=== PATIENT | female | born 1985 | race Caucasian/White ===

== ENCOUNTER 2024-04-16 08:12 | Outpatient (CLI) | payer BC, SELFPAY ==
--- NOTE | 2024-04-16 | ECG_ITS ---
Test Date: 2024-04-16 08:49:10 Measurements Intervals [place] Rate: 77 P: 43 VA: 143 QRS: 31 QRSD: 81 T: 11 QT: 365 QTc: 414 Interpretive Statements SINUS RHYTHM NORMAL ELECTROCARDIOGRAM No previous ECG available for comparison Electronically Signed On 04-16-2024 11:11:28 CDT by Henok Anglin M.D.
== END 2024-04-16 08:13 | disposition home or self-care (01) ==
LOC: ANHLAB 08:18 → ANHCARD 08:21
PROVIDERS: Visit Provider Obstetrics & Gynecology
DX: O16.9 Unspecified maternal hypertension, unspecified trimester (principal)
CPT/HCPCS: 93005

== ENCOUNTER 2024-06-30 15:15 | Outpatient (RCR) | payer BC, SELFPAY ==
[2024-05-27 15:27] VITALS: BP 127/81; PULSE 82
--- NOTE | ~2024-06-30 | US_ITS ---
EXAMINATION: US OB limited w BPP DATE: 06/30/2024 16:02 INDICATION: BPP and measure deepest pocket of amniotic fluid . TECHNIQUE: Real-time ultrasound of the pelvis was performed. COMPARISON: None. FINDINGS: There is a single living fetus in breech presentation, longitudinal lie, head to maternal right. The placenta is anterior, well distant from the cervix. heart rate is 154 bpm. Deepest vertical po cket 6.5 cm. Biophysical profile performed by the technologist: breathing (30 sec sustained breathing in 30 minutes): 2 out of 2. movement (3 gross body movements in 30 minutes: 2 out of 2. tone (one episode of degzqlo-lmldetsjy-skpoxvh limb movement): 2 out of 2. Amniotic fluid pocket (2 cm): 2 out of 2. Total score: 8 out of 8. IMPRESSION: Single living fetus in breech presentation. Biophysical profile 8 out of 8. Deepest vertical pocket 6.5 cm. Reviewed, dictated and finalized at location [facility]
== END 2024-08-25 12:16 | disposition home or self-care (01) ==
LOC: ANHOBOP 15:15
PROVIDERS: Visit Provider Obstetrics & Gynecology
DX: O36.8120 Decreased fetal movements, second trimester, not applicable or unspecified (principal); Z3A.27 27 weeks gestation of pregnancy
CPT/HCPCS: 59025; 76815; 76819

== ENCOUNTER 2024-07-15 15:58 | Outpatient (CLI) | payer BC, SELFPAY ==
[2024-07-15 16:37] VITALS: BP 135/93; PULSE 100; BMI 33.3
[2024-07-15 16:38] VITALS: BP 135/93; PULSE 100
[2024-07-15 16:46] VITALS: BP 130/93; PULSE 104
[2024-07-15 16:47] LABS: Add Urine Microscopic? NO; Appearance Urine Clear (Clear); Bilirubin Urine Negative (Negative); Blood Urine Negative (Negative); Color Urine Yellow (Yellow); Glucose Urine UA Negative (Negative); Ketones Urine Trace mg/dL (Negative); Leukocyte Esterase Ur Negative LEU/UL (Negative); Nitrate Urine Negative (Negative); Protein Urine Negative (Negative); Specific Grav Ur 1.013 (1.001-1.035); Urobilinogen Urine 0.2 mg/dL (<2.0)
[2024-07-15 16:48] LABS: Basophils Percent Auto 0.3 % (0.2-1.2); Eosinophils Absolute Auto 0.1 K/mm3 (0-0.3); Eosinophils Percent Auto 0.5 % (0-4.4); Hematocrit 37.4 % (37.0-47.0); Hemoglobin 12.8 g/dL (12.0-15.0); Immature Granulocyte Absolute 0.23 K/mm3 (0.00-0.031); Immature Granulocyte Percent A 1.9 % (0-0.5); Lymphocytes Absolute Auto 2.05 K/mm3 (0.9-3.2); Lymphocytes Percent Auto 17.3 % (18.3-44.2); Mean Corpuscular HGB Conc 34.2 g/dl (32-36); Mean Corpuscular Volume 90.6 fl (80-100); Mean Platelet Volume 11.3 fl (7.4-10.4); Monocytes Percent Auto 8.4 % (2.6-8.5); Neutrophils Absolute Auto 8.5 K/mm3 (1.3-6.7); Neutrophils Percent Auto 71.6 % (45.5-73.1); Platelet Count Result 137 k/mm3 (150-375); Red Blood Count 4.13 M/mm3 (4.2-5.4); Red Cell Distribution Width 13.4 % (11.5-14.5); White Blood Count 11.9 K/mm3 (4.5-10.0)
[2024-07-15 16:59] LABS: Alanine Aminotransferase 23 U/L (6-35); Albumin Level 3.6 g/dL (3.5-5.1); Alkaline Phosphatase 134 U/L (38-126); Anion Gap 5 mmol/L (4-12); Aspartate Amino Transferase 24 U/L (14-36); Bilirubin,Total 0.5 mg/dL (0.2-1.3); Blood Urea Nitrogen 14 mg/dL (7-17); Calcium 9.1 mg/dL (8.4-10.2); Carbon Dioxide 20 mmol/L (22-30); Chloride 108 mmol/L (98-107); Estimated Glomerular Filt Rate > 60; Glucose 83 mg/dL (65-110); Potassium 4.2 mmol/L (3.4-5.0); Sodium 133 mmol/L (137-145); Uric Acid 6.1 mg/dL (2.5-7.5)
[2024-07-15 17:01] VITALS: BP 133/87; PULSE 96
--- NOTE | 2024-07-15 17:13 | PC.NURSE ---
Dr. Parrish called stating she had been watching for pt's labs. The only lab still pending is the total protein creatinine ratio. Aware platelets are 137 and states around what pt has been running. Aware of pt's headache. Discussed BP's. OK for pt to go home and keep scheduled appointments in the office.
--- NOTE | 2024-07-15 18:42 | PC.NURSE ---
Called lab because total protein creatinine ratio still not available. Lab informed me they are working on the analyzer.
[2024-07-15 19:36] LABS: Total Protein Urine Random 6 mg/dL; Ur Ttl Prot Creatinine Ratio 0.11 mg/mg (0-0.20)
--- NOTE | 2024-07-15 19:44 | PC.NURSE ---
Total protein creatinine ratio is 0.107
== END 2024-07-15 17:15 | disposition home or self-care (01) ==
LOC: ANHOBOP 16:10 → ANHOBPP 16:11
PROVIDERS: Visit Provider Obstetrics & Gynecology
DX: O13.9 Gestational [pregnancy-induced] hypertension without significant proteinuria, unspecified trimester (principal); Z3A.00 Weeks of gestation of pregnancy not specified
CPT/HCPCS: 36415; 80053; 81003; 82570; 84156; 84550; 85025; 85055; 99199

== ENCOUNTER 2024-07-23 15:25 | Outpatient (CLI) | payer BC, SELFPAY ==
[2024-07-23] VITALS (7 sets, daily range): BP systolic 127–162; BP diastolic 85–94; PULSE 110–129
[2024-07-23 16:16] LABS: Basophils Percent Auto 0.4 % (0.2-1.2); Eosinophils Percent Auto 0.2 % (0-4.4); Immature Granulocyte Absolute 0.17 K/mm3 (0.00-0.031); Immature Granulocyte Percent A 1.5 % (0-0.5); Immature Platelet Fraction Pct 8.2 % (0.9-11.2); Lymphocytes Absolute Auto 1.62 K/mm3 (0.9-3.2); Lymphocytes Percent Auto 14.2 % (18.3-44.2); Mean Corpuscular HGB Conc 34.2 g/dl (32-36); Mean Corpuscular Volume 90.5 fl (80-100); Mean Platelet Volume 11.7 fl (7.4-10.4); Monocytes Absolute Auto 0.8 K/mm3 (0.1-0.6); Monocytes Percent Auto 7.2 % (2.6-8.5); Neutrophils Absolute Auto 8.7 K/mm3 (1.3-6.7); Neutrophils Percent Auto 76.5 % (45.5-73.1); Platelet Count Result 132 k/mm3 (150-375); Red Cell Distribution Width 13.2 % (11.5-14.5); White Blood Count 11.4 K/mm3 (4.5-10.0)
[2024-07-23 16:26] LABS: Total Protein Urine Random 9 mg/dL; Ur Ttl Prot Creatinine Ratio 0.43 mg/mg (0-0.20)
[2024-07-23 16:35] LABS: Add Urine Microscopic? YES; Appearance Urine Cloudy (Clear); Bacteria Urine Rare /hpf; Bilirubin Urine Negative (Negative); Blood Urine Negative (Negative); Color Urine Yellow (Yellow); Glucose Urine UA Negative (Negative); Ketones Urine Trace mg/dL (Negative); Leukocyte Esterase Ur Negative LEU/UL (Negative); Need Manual Microscopic Reviewed; Nitrate Urine Negative (Negative); Non Pathogenic Casts 0-2; Protein Urine Negative (Negative); RBC Urine 0-2 /hpf (0-2); Specific Grav Ur 1.006 (1.001-1.035); Squamous Epithelial Cell Urine Few /hpf (Few); Urobilinogen Urine 0.2 mg/dL (<2.0); WBC Urine 0-5 /hpf (0-3); pH Urine 5.5 (5.0-9.0)
[2024-07-23 16:36] LABS: Alanine Aminotransferase 19 U/L (6-35); Albumin Level 3.8 g/dL (3.5-5.1); Alkaline Phosphatase 166 U/L (38-126); Anion Gap 10 mmol/L (4-12); Aspartate Amino Transferase 22 U/L (14-36); Bilirubin,Total 0.6 mg/dL (0.2-1.3); Blood Urea Nitrogen 13 mg/dL (7-17); Carbon Dioxide 18 mmol/L (22-30); Chloride 108 mmol/L (98-107); Estimated Glomerular Filt Rate > 60; Glucose 85 mg/dL (65-110); Sodium 136 mmol/L (137-145); Uric Acid 6.3 mg/dL (2.5-7.5)
--- NOTE | 2024-07-23 17:26 | PC.NURSE ---
Dr. Parrish informed of BP's, reactive NST, and lab results. Pt states headache has decreased from a 7 down to a 4. states she can go home, but to let pt know that she will schedule her to be induced at 37 wks now due to the protein in her urine.
== END 2024-07-23 17:30 | disposition home or self-care (01) ==
LOC: ANHOBOP 15:35 → ANHOBPP 15:37
PROVIDERS: Visit Provider Obstetrics & Gynecology
DX: O13.9 Gestational [pregnancy-induced] hypertension without significant proteinuria, unspecified trimester (principal); Z3A.00 Weeks of gestation of pregnancy not specified
CPT/HCPCS: 36415; 59025; 80053; 81001; 82570; 84156; 84550; 85025; 85055; 99199

== ENCOUNTER 2024-07-30 12:31 | Inpatient (IN) | payer BC, SELFPAY ==
[2024-07-30] VITALS (95 sets, daily range): BP systolic 96–151; BP diastolic 47–101; PULSE 79–102; RESP 13–14; TEMP 36.4–36.6; O2SAT 94–100; BMI 33.4
[2024-07-30 14:15] LABS: Add Urine Microscopic? YES; Appearance Urine Clear (Clear); Bacteria Urine 1+ /hpf; Bilirubin Urine Negative (Negative); Blood Urine Negative (Negative); Color Urine Yellow (Yellow); Glucose Urine UA Negative (Negative); Ketones Urine 1+ mg/dL (Negative); Leukocyte Esterase Ur Trace LEU/UL (Negative); Nitrate Urine Negative (Negative); Non Pathogenic Casts 0-2; Protein Urine Negative (Negative); RBC Urine 0-2 /hpf (0-2); Specific Grav Ur 1.015 (1.001-1.035); Squamous Epithelial Cell Urine Moderate /hpf (Few); Urobilinogen Urine 0.2 mg/dL (<2.0); pH Urine 5.5 (5.0-9.0)
[2024-07-30 14:19] LABS: Creatinine Urine 65.4 mg/dL
[2024-07-30 14:19] LABS: Alanine Aminotransferase 14 U/L (6-35); Albumin Level 3.7 g/dL (3.5-5.1); Alkaline Phosphatase 160 U/L (38-126); Anion Gap 9 mmol/L (4-12); Aspartate Amino Transferase 21 U/L (14-36); Bilirubin,Total 0.6 mg/dL (0.2-1.3); Blood Urea Nitrogen 15 mg/dL (7-17); Calcium 9.3 mg/dL (8.4-10.2); Carbon Dioxide 16 mmol/L (22-30); Chloride 107 mmol/L (98-107); Estimated Glomerular Filt Rate > 60; Glucose 79 mg/dL (65-110); Potassium 3.8 mmol/L (3.4-5.0); Sodium 132 mmol/L (137-145); Uric Acid 5.6 mg/dL (2.5-7.5)
[2024-07-30] MEDS: miSOPROStol 25 MCG TABLET 50 MCG BUCCAL ×3 (14:25→22:34)
[2024-07-30] MEDS: MAGNESIUM SULF 4 GM/WATER100ML 4 GM/100 ML BAG IVPB (14:25)
[2024-07-30] MEDS: LACTATED RINGERS 1,000 ML 125 ML IV CONT (14:25)
[2024-07-30 14:29] LABS: Basophils Absolute Auto 0.1 K/mm3 (0.0-0.1); Basophils Percent Auto 0.5 % (0.2-1.2); Eosinophils Percent Auto 0.3 % (0-4.4); Hematocrit 37.5 % (37.0-47.0); Hemoglobin 12.9 g/dL (12.0-15.0); Immature Granulocyte Absolute 0.17 K/mm3 (0.00-0.031); Immature Granulocyte Percent A 1.5 % (0-0.5); Lymphocytes Absolute Auto 1.95 K/mm3 (0.9-3.2); Lymphocytes Percent Auto 16.9 % (18.3-44.2); Mean Corpuscular HGB Conc 34.4 g/dl (32-36); Mean Corpuscular Hemoglobin 31.2 pg (26-34); Mean Corpuscular Volume 90.8 fl (80-100); Mean Platelet Volume 12.5 fl (7.4-10.4); Monocytes Absolute Auto 0.8 K/mm3 (0.1-0.6); Monocytes Percent Auto 6.7 % (2.6-8.5); Neutrophils Absolute Auto 8.6 K/mm3 (1.3-6.7); Neutrophils Percent Auto 74.1 % (45.5-73.1); Platelet Count Result 135 k/mm3 (150-375); Red Blood Count 4.13 M/mm3 (4.2-5.4); Red Cell Distribution Width 13.3 % (11.5-14.5); White Blood Count 11.6 K/mm3 (4.5-10.0)
[2024-07-30 14:56] LABS: Rapid Plasma Reagin Non-Reactive (NonReactive)
[2024-07-30 14:58] LABS: HIV 1/2 Ab P24 Ag Result Negative (Negative)
[2024-07-30] MEDS: MAGNESIUM SULF 20GM/WATER500ML 500 ML 50 MG IV CONT (14:58)
[2024-07-30 15:19] LABS: Total Protein Urine Random < 5 mg/dL; Ur Ttl Prot Creatinine Ratio < 0.08 mg/mg (0-0.20)
--- NOTE | 2024-07-30 16:09 | LDADM ---
This patient, Miguelina Diaz, was admitted to Labor/Delivery/Recovery 108 on 07/30/24 at 12:31. Plans for labor, pain management and were discussed with patient. Patient/family oriented to hospital policies and general routines including ID bracelet, bed and alarms, visiting hours, pain management, procedures, bathroom and other care routines, personal items, smoking policy, room service/diet and guest tray routines, infant security routines, and visiting hours. Patient/Family are encouraged to report perceived risks to care and to ask questions if they do not understand what they are told or what they should do. See [facility] for further documentation.
--- NOTE | 2024-07-30 17:35 | WPDANESEPP ---
Anes - Eval Pre Procedure Procedure: Labor epidural Date/Time: 07/30/24 17:35 Preop Diagnosis: Abdominal pain with contractions Pre Op Diagnosis: Pre E Patient Data Age: 39 Gender: F Height: 1.68 m Weight: 94 kg Last Vital Signs Temp 98 F 07/30/24 14:00 Pulse 96 07/30/24 17:00 BP 135/84 07/30/24 17:00 O2 Del Method Room Air 07/30/24 14:00 Allergies Allergy/AdvReac Type Severity Reaction Status Date / Time No Known Allergies Allergy Verified 07/26/24 13:22 Home Medications ?Medication ?Instructions ?Recorded ?Confirmed ?Type aspirin 81 mg tablet,delayed 162 mg PO HS 07/15/24 07/26/24 History release (Adult Aspirin Regimen) vit no.95-ferrous 1 tablet PO DAILY 07/15/24 07/26/24 History fumarate 28 mg-folic acid 800 mcg tablet () Laboratory Tests 07/30/24 07/30/24 07/30/24 13:36 13:36 13:37 WBC 11.6 H K/mm3 (4.5-10.0) RBC 4.13 L M/mm3 (4.2-5.4) Hgb 12.9 g/dL (12.0-15.0) Hct 37.5 % (37.0-47.0) MCV 90.8 fl (80-100) MCH 31.2 pg (26-34) MCHC 34.4 g/dl (32-36) RDW 13.3 % (11.5-14.5) Plt Count 135 L k/mm3 (150-375) MPV 12.5 H fl (7.4-10.4) Immature Gran % (Auto) 1.5 H % (0-0.5) Neut % (Auto) 74.1 H % (45.5-73.1) Lymph % (Auto) 16.9 L % (18.3-44.2) [place] % (Auto) 6.7 % (2.6-8.5) Eos % (Auto) 0.3 % (0-4.4) Baso % (Auto) 0.5 % (0.2-1.2) Lymph # (Auto) 1.95 K/mm3 (0.9-3.2) [place] # (Auto) 0.8 H K/mm3 (0.1-0.6) Eos # (Auto) 0.0 K/mm3 (0-0.3) Baso # (Auto) 0.1 K/mm3 (0.0-0.1) Abs Immat Gran (auto) 0.17 H K/mm3 (0.00-0.031) Absolute Neuts (auto) 8.6 H K/mm3 (1.3-6.7) Absolute Nucleated RBC 0.000 K/mm3 (0.0-0.012) Nucleated RBC % 0.0 % (0.0-0.2) Sodium 132 L mmol/L (137-145) Potassium 3.8 mmol/L (3.4-5.0) Chloride 107 mmol/L (98-107) Carbon Dioxide 16 L mmol/L (22-30) Anion Gap 9 mmol/L (4-12) BUN 15 mg/dL (7-17) Creatinine 0.55 L mg/dL (0.7-1.0) Estim Creat Clear Calc Not Reportable Estimated GFR > 60 (59 - ) Glucose 79 mg/dL (65-110) Uric Acid 5.6 mg/dL Cancelled (2.5-7.5) Calcium 9.3 mg/dL (8.4-10.2) Total Bilirubin 0.6 mg/dL (0.2-1.3) AST 21 U/L (14-36) ALT 14 U/L (6-35) Alkaline Phosphatase 160 H U/L (38-126) Total Protein 7.0 g/dL (6.3-8.2) Albumin 3.7 g/dL (3.5-5.1) Urine Color Urine Appearance Urine pH Ur Specific [place] Urine Protein Urine Glucose (UA) Urine Ketones Ur Blood (Man) Urine Nitrate Urine Bilirubin Urine Urobilinogen Leukocyte Esterase Rfl Urine RBC Urine WBC Ur Squamous Epith Cells Urine Bacteria Urine Casts U Random Total Protein Urine Creatinine Protein/Creat Ratio 2 RPR Non-reactive (NonReactive) HIV 1&2 Ab/P24 Ag 4thGn Negative (Negative) Blood Type A Positive Antibody Screen Negative 07/30/24 13:45 WBC RBC Hgb Hct MCV MCH MCHC RDW Plt Count MPV Immature Gran % (Auto) Neut % (Auto) Lymph % (Auto) [place] % (Auto) Eos % (Auto) Baso % (Auto) Lymph # (Auto) [place] # (Auto) Eos # (Auto) Baso # (Auto) Abs Immat Gran (auto) Absolute Neuts (auto) Absolute Nucleated RBC Nucleated RBC % Sodium Potassium Chloride Carbon Dioxide Anion Gap BUN Creatinine Estim Creat Clear Calc Estimated GFR Glucose Uric Acid Calcium Total Bilirubin AST ALT Alkaline Phosphatase Total Protein Albumin Urine Color Yellow (Yellow) Urine Appearance Clear (Clear) Urine pH 5.5 (5.0-9.0) Ur Specific [place] 1.015 (1.001-1.035) Urine Protein Negative mg/dL (Negative) Urine Glucose (UA) Negative mg/dL (Negative) Urine Ketones 1+ H mg/dL (Negative) Ur Blood (Man) Negative (Negative) Urine Nitrate Negative (Negative) Urine Bilirubin Negative (Negative) Urine Urobilinogen 0.2 mg/dL (<2.0) Leukocyte Esterase Rfl Trace H ADARSH/UL (Negative) Urine RBC 0-2 /hpf (0-2) Urine WBC 6-10 H /hpf (0-3) Ur Squamous Epith Cells Moderate /hpf (Few) Urine Bacteria 1+ H /hpf Urine Casts 0-2 U Random Total Protein < 5 mg/dL Urine Creatinine 65.4 mg/dL Protein/Creat Ratio 2 < 0.08 mg/mg (0-0.20) RPR HIV 1&2 Ab/P24 Ag 4thGn Blood Type Antibody Screen : gestational age HCG: positive Patient hx anesthesia problems: none Family hx anesthesia problems: none Results Review: All pre-operative results and documents have been reviewed as part of the pre-operative evaluation. [facility] Past Medical History Medical History Pre-eclampsia Kidney stones Migraines Family History Family History Grandparent Congestive heart failure Grandparent Congestive heart failure Social History Social History Smoking status: Never smoker Substance use: never Do You Feel Safe in your Home?: Yes Lack of Transportation: No Lack of Food: Never True Current Housing: I Have Housing Concerned About Future Housing: No Difficulty Paying Gas/Electric Bills: No Difficulty Paying for Meds: No Currently Unemployed: No Education: Bachelor's Degree Difficulty w/ Childcare or Family Care: No Spiritual care concerns: No Exam Day of Procedure 07/30/24 17:35 Patient weight: overweight
--- NOTE | 2024-07-30 17:55 | PM.IMHP ---
H&P: HPI History of Present Illness Date/Time: 07/30/24 17:55 Chief Complaint: preeclampsia with severe features Narrative: Patient is a 39 year old who presents for medical induction of labor indicated for chronic hypertension with superimposed preeclampsia with severe features by headache. She was seen in the [facility] office today for chronic hypertension, and reported a persistent headache despite tylenol, reglan and benadryl. [facility] recommended delivery due to severe features at 36 weeks. Her has been otherwise complicated by AMA. Since starting MgSO4, she reports resolution of her headache and nausea. Blood pressures have been mild range. Review of Systems Review of Systems: All systems reviewed & are unremarkable except as noted in HPI and below PMFSH Past Medical History Medical History Pre-eclampsia Kidney stones Migraines Family History Family History Grandparent Congestive heart failure Grandparent Congestive heart failure Social History Social History Smoking status: Never smoker Substance use: never Do You Feel Safe in your Home?: Yes Lack of Transportation: No Lack of Food: Never True Current Housing: I Have Housing Concerned About Future Housing: No Difficulty Paying Gas/Electric Bills: No Difficulty Paying for Meds: No Currently Unemployed: No Education: Bachelor's Degree Difficulty w/ Childcare or Family Care: No Spiritual care concerns: No Meds Home Medications and Allergies Home Medications ?Medication ?Instructions ?Recorded ?Confirmed ?Type aspirin 81 mg tablet,delayed 162 mg PO HS 07/15/24 07/26/24 History release (Adult Aspirin Regimen) vit no.95-ferrous 1 tablet PO DAILY 07/15/24 07/26/24 History fumarate 28 mg-folic acid 800 mcg tablet () Allergies Allergy/AdvReac Type Severity Reaction Status Date / Time No Known Allergies Allergy Verified 07/26/24 13:22 Vital Signs Vital Signs - 24 hr 07/30/24 13:18 07/30/24 13:30 07/30/24 13:45 Temperature Pulse Rate 96 101 H 99 Blood Pressure 139/92 H 131/80 151/101 H Oxygen Delivery 07/30/24 14:00 07/30/24 14:00 07/30/24 14:15 Temperature 98 F Pulse Rate 96 102 H Blood Pressure 148/92 H 126/83 Oxygen Delivery Room Air 07/30/24 14:45 07/30/24 15:15 07/30/24 15:30 Temperature Pulse Rate 100 94 89 Blood Pressure 137/85 125/73 108/67 Oxygen Delivery 07/30/24 15:45 07/30/24 16:00 07/30/24 16:15 Temperature Pulse Rate 88 95 96 Blood Pressure 125/77 131/84 130/72 Oxygen Delivery 07/30/24 17:00 Temperature Pulse Rate 96 Blood Pressure 135/84 Oxygen Delivery Exam Const: General: comfortable and no acute distress HENMT: Mouth: Yes moist mucous membranes Eyes: General: appearance normal, both eyes and all related structures Resp: Effort & Inspection: normal respiratory effort Cardio: Rate: regular rate Skin: General skin exam: normal color Extrem: General: normal to inspection Psych: Mental Status: mental status grossly normal H&P: Results Labs Labs: Short CBC 07/30/24 Range/Units 13:37 WBC 11.6 H (4.5-10.0) K/mm3 Hgb 12.9 (12.0-15.0) g/dL Hct 37.5 (37.0-47.0) % Plt Count 135 L (150-375) k/mm3 BMP 07/30/24 13:36 Sodium 132 L Potassium 3.8 Chloride 107 Carbon Dioxide 16 L BUN 15 Creatinine 0.55 L Glucose 79 Calcium 9.3 Liver Function 07/30/24 Range/Units 13:36 Total Bilirubin 0.6 (0.2-1.3) mg/dL AST 21 (14-36) U/L ALT 14 (6-35) U/L Alkaline Phosphatase 160 H (38-126) U/L Albumin 3.7 (3.5-5.1) g/dL Urine 07/30/24 Range/Units 13:45 Urine Color Yellow (Yellow) Urine Appearance Clear (Clear) Urine pH 5.5 (5.0-9.0) Ur Specific [place] 1.015 (1.001-1.035) Urine Protein Negative (Negative) mg/dL Urine Glucose (UA) Negative (Negative) mg/dL Assessment and Plan Assessment and plan (1) Chronic hypertension affecting : Code(s): O10.919 - Unspecified pre-existing hypertension complicating , unspecified trimester Status: Acute Assessment and Plan: - headache now resolved since starting MgSO4 - BP mild range since admission - labs wnl on admission - MgSO4 for seizure prophylaxis due to severe features, continue x24 hours (2) Pre-eclampsia added to pre-existing hypertension: Code(s): O11.9 - Pre-existing hypertension with pre-eclampsia, unspecified trimester Status: Acute (3) AMA (advanced maternal age) multigravida 35+: Code(s): O09.529 - Supervision of elderly multigravida, unspecified trimester Status: Acute
[2024-07-31] VITALS (310 sets, daily range): BP systolic 92–146; BP diastolic 52–106; PULSE 69–106; RESP 14–18; TEMP 36.3–37.2; O2SAT 92–100
[2024-07-31] MEDS: MAGNESIUM SULF 20GM/WATER500ML 500 ML 50 MG IV CONT ×3 (00:56→20:38)
[2024-07-31] MEDS: miSOPROStol 25 MCG TABLET 50 MCG BUCCAL (02:35)
[2024-07-31] MEDS: LACTATED RINGERS 1,000 ML 75 ML IV CONT ×2 (02:35→10:31)
[2024-07-31] MEDS: AMPICILLIN 2 GM/NS 100 ML 2 GM/100 ML BAG IVPB (07:03)
[2024-07-31] MEDS: OXYTOCIN 30 UNITS/NS 500 ML 30 UNITS/500 ML BAG 6 UNITS IV CONT (07:03)
[2024-07-31] MEDS: AMPICILLIN 1 GM/NS 50 ML 1 GM/50 ML BAG IVPB ×4 (11:09→22:59)
[2024-07-31] MEDS: ONDANSETRON INJ 4 MG/2 ML VIAL IV PUSH (12:27)
--- NOTE | 2024-07-31 16:02 | PM.OBPNLAB ---
Pain Control Date/time seen: 07/31/24 1100 pt comfortable after epidural, SVE /- soft, Ferrera placed with 40 cc fluid, bp stable, co-managing with dr. rangel, anticipate vaginal delivery
[2024-07-31] MEDS: CALCIUM CARBONATE (TUMS) 500 MG (200 MG ELEMENTAL) PO (23:00)
[2024-08-01] VITALS (202 sets, daily range): BP systolic 76–195; BP diastolic 36–143; PULSE 35–108; RESP 18; TEMP 36.7–36.9; O2SAT 81–100
--- OUTSIDE RECORDS SUMMARY | 2024-08-01 00:28 | XMS_ITS | Data Portability ---
Author Organization [facility] [place] Address [address] [place] [address] Assessment No assessment recorded. Plan of Treatment Reminders Order Date Submit Date Provider Last Modified By Organization Details Last Modified Time Details Appointments INDUCTI ON 2024 12:00A Brandi NICOLE MD Not available Not available Not available U/S OB BPP 2024 01:30P M ULTRASOUND Not available Not available Not available NST 2024 02:00P M NST SCHEDULE Not available Not available Not available OB ROUTINE 2024 02:30P M ARUN NICOLE MD Not available Not available Not available U/S OB BPP 2024 02:00P M ULTRASOUND Not available Not available Not available NST 2024 02:30P M NST SCHEDULE Not available Not available Not available OB ROUTINE 2024 03:00P M ARUN NICOLE MD Not available Not available Not available U/S OB BPP 2024 02:30P M ULTRASOUND Not available Not available Not available NST 2024 03:00P M NST SCHEDULE Not available Not available Not available OB ROUTINE 2024 03:30P M ARUN NICOLE MD Not available Not available Not available U/S OB BPP 2024 02:00P M ULTRASOUND Not available Not available Not available NST 2024 02:30P M NST SCHEDULE Not available Not available Not available OB ROUTINE 2024 03:00P M ARUN NICOLE MD Not available Not available Not available Lab protein :creati nine ratio, urine 2024 025 [facility] (Lab), [address], [place], [address], 07/22/2024 06:08:44 unliste d lab - CMP/CBC /uric acid 2024 025 [facility] (Lab), [address], [place], [address], 07/22/2024 06:08:44 unliste d lab - CMP/CBC /uric acid 2024 025 [facility] (Lab), [address], [place], [address], 07/30/2024 05:16:25 Referral None recorde d. Procedures None recorde d. Surgeries None recorde d. Imaging non-str ess test 2024 025 [address], [address], [place], [address], 07/16/2024 09:03:06 non-str ess test 2024 [address], [address], [place], [address], 07/30/2024 04:01:22 US, obstetr ic, biophys ical profile + non-str ess test [address], [address], [place], [address], 07/29/2024 20:36:37 Medication Orders metoclo pramide 10 mg tablet 2024 025 [id number], [address], [place], [place], [id number], 07/29/2024 16:23:16 Patient TargetsNo targets recorded. Patient InstructionsNo instructions recorded. Reason for Referral None Reported. Results Created Date Observation Date Name Description Value Unit Range Abnormal Flag Note LastModifiedBy Organization Detail LastModifiedTime 06/27/20 24 06/27/2024 CBC W/DIF F WBC 10.9 10'3/ uL 3.5-10 .5 high Not Available [facility] (Lab) [address], [place], [address], 06/28/2024 04:40:57 06/27/20 24 06/27/2024 CBC W/DIF F RBC 4.10 10'6/ uL (based on docume nted legal sex) 3.80-5 .20 Not Available [facility] (Lab) [address], [place], [address], 06/28/2024 04:40:57 06/27/20 24 06/27/2024 CBC W/DIF F HGB 12.4 g/dL (based on docume nted legal sex) 11.6-1 5.4 Not Available [facility] (Lab) [address], [place], [address], 06/28/2024 04:40:57 06/27/20 24 06/27/2024 CBC W/DIF F HCT 37.7 % (based on docume nted legal sex) 34.0-4 5.0 Not Available [facility] (Lab) [address], [place], [address], 06/28/2024 04:40:57 06/27/20 24 06/27/2024 CBC W/DIF F MCV 92.0 fL 80.0-9 9.0 Not Available [facility] (Lab) [address], [place], [address], 06/28/2024 04:40:57 06/27/20 24 06/27/2024 CBC W/DIF F MCH 30.2 pg 27.0-3 4.0 Not Available [facility] (Lab) [address] [place], [address], 06/28/2024 04:40:57 06/27/20 24 06/27/2024 CBC W/DIF F MCHC 32.9 g/dL 32.0-3 5.5 Not Available [facility] (Lab) [address], [place], [address], 06/28/2024 04:40:57 06/27/20 24 06/27/2024 CBC W/DIF F RDW 13.2 % 11.0-1 5.0 Not Available [facility] (Lab) [address], [place], [address], 06/28/2024 04:40:57 06/27/20 24 06/27/2024 CBC W/DIF F plt 135 10'3/ uL 150-40 0 low Not Available [facility] (Lab) [address], [place], [address], 06/28/2024 04:40:57 06/27/20 24 06/27/2024 CBC W/DIF F MPV 12.1 fL 8.8-12 .1 Not Available [facility] (Lab) [address], [place], [address], 06/28/2024 04:40:57 06/27/20 24 06/27/2024 CBC W/DIF F NRBC's 0.0 % 0.0 Not Available [facility] (Lab) [address], [place], [address], 06/28/2024 04:40:57 06/27/20 24 06/27/2024 CBC W/DIF F absolute NRBCs 0.0 10'3/ uL no refere nce range establ ished Not Available [facility] (Lab) [address], [place], [address], 06/28/2024 04:40:57 06/27/20 24 06/27/2024 CBC W/DIF F neutrophils 71.3 % 34.0-7 3.0 Not Available [facility] (Lab) [address] [place], [address], 06/28/2024 04:40:57 06/27/20 24 06/27/2024 CBC W/DIF F lymphocytes 17.7 % 15.0-5 0.0 Not Available [facility] (Lab) [address], [place], [address], 06/28/2024 04:40:57 06/27/20 24 06/27/2024 CBC W/DIF F monocytes 8.6 % 1.0-15 .0 Not Available [facility] (Lab) [address], [place], [address], 06/28/2024 04:40:57 06/27/20 24 06/27/2024 CBC W/DIF F eosinophils 0.5 % 0.0-8. 0 Not Available [facility] (Lab) [address], [place], [address], 06/28/2024 04:40:57 06/27/20 24 06/27/2024 CBC W/DIF F basophils 0.3 % 0.0-2. 0 Not Available [facility] (Lab) [address], [place], [address], 06/28/2024 04:40:57 06/27/20 24 06/27/2024 CBC W/DIF F immature granulocytes 1.6 % no define d refere nce range Not Available [facility] (Lab) [address], [place], [address], 06/28/2024 04:40:57 06/27/20 24 06/27/2024 CBC W/DIF F absolute neutrophils 7.8 10'3/ uL 1.5-8. 0 Not Available [facility] (Lab) [address] [place], [address], 06/28/2024 04:40:57 06/27/20 24 06/27/2024 CBC W/DIF F absolute lymphocytes 1.9 10'3/ uL 1.0-4. 0 Not Available [facility] (Lab) [address], [place], [address], 06/28/2024 04:40:57 06/27/20 24 06/27/2024 CBC W/DIF F absolute monocytes 0.9 10'3/ uL 0.2-1. 0 Not Available [facility] (Lab) [address], [place], [address], 06/28/2024 04:40:57 06/27/20 24 06/27/2024 CBC W/DIF F absolute eosinophils 0.1 10'3/ uL 0.0-0. 6 Not Available [facility] (Lab) [address], [place], [address], 06/28/2024 04:40:57 06/27/20 24 06/27/2024 CBC W/DIF F absolute basophils 0.0 10'3/ uL 0.0-0. 3 Not Available [facility] (Lab) [address], [place], [address], 06/28/2024 04:40:57 06/27/20 24 06/27/2024 CBC W/DIF F absolute immature granulocytes 0.2 10'3/ uL 0.00-0 .10 high 06/28 2:37 AM: P indic ates parti al resul ts on a panel have been relea sed. Addit ional resul ts will follo w. 06/28 2:37 AM: This resul t has been final verif ied. No addit ional or nazario ed resul ts are expec jason. Not Available [facility] (Lab) [address], [place], [address], 06/28/2024 04:40:57 06/27/20 24 06/27/2024 CMP(C OMPRE HENSI VE METAB OLIC PANEL ) sodium 140 mmol/ L 133-14 6 Not Available [facility] (Lab) [address] [place], [address], 06/28/2024 04:40:58 06/27/20 24 06/27/2024 CMP(C OMPRE HENSI VE METAB OLIC PANEL ) potassium 3.7 mmol/ L 3.5-5. 1 Not Available [facility] (Lab) [address], [place], [address], 06/28/2024 04:40:58 06/27/20 24 06/27/2024 CMP(C OMPRE HENSI VE METAB OLIC PANEL ) chloride 105 mmol/ L 98-107 Not Available [facility] (Lab) [address], [place], [address], 06/28/2024 04:40:58 06/27/20 24 06/27/2024 CMP(C OMPRE HENSI VE METAB OLIC PANEL ) carbon dioxide 24 mmol/ L 21-31 Not Available [facility] (Lab) [address], [place], [address], 06/28/2024 04:40:58 06/27/20 24 06/27/2024 CMP(C OMPRE HENSI VE METAB OLIC PANEL ) anion gap 11 mmol/ L 4-13 Not Available [facility] (Lab) [address], [place], [address], 06/28/2024 04:40:58 06/27/20 24 06/27/2024 CMP(C OMPRE HENSI VE METAB OLIC PANEL ) blood urea nitrogen 16 mg/dL 7-25 Not Available [facility] (Lab) [address], [place], [address], 06/28/2024 04:40:58 06/27/20 24 06/27/2024 CMP(C OMPRE HENSI VE METAB OLIC PANEL ) creatinine 0.60 mg/dL 0.60-1 .30 Not Available [facility] (Lab) [address] [place], [address], 06/28/2024 04:40:58 06/27/20 24 06/27/2024 CMP(C OMPRE HENSI VE METAB OLIC PANEL ) egfrcr (CKD-epi 2020) >90 mL/mi n/1.7 3_m2 >=60 Not Available [facility] (Lab) [address], [place], [address], 06/28/2024 04:40:58 06/27/20 24 06/27/2024 CMP(C OMPRE HENSI VE METAB OLIC PANEL ) calcium 9.4 mg/dL 8.3-10 .5 Not Available [facility] (Lab) [address], [place], [address], 06/28/2024 04:40:58 06/27/20 24 06/27/2024 CMP(C OMPRE HENSI VE METAB OLIC PANEL ) glucose 74 mg/dL 70-100 Not Available [facility] (Lab) [address], [place], [address], 06/28/2024 04:40:58 06/27/20 24 06/27/2024 CMP(C OMPRE HENSI VE METAB OLIC PANEL ) protein, total 6.5 g/dL 6.4-8. 3 Not Available [facility] (Lab) [address], [place], [address], 06/28/2024 04:40:58 06/27/20 24 06/27/2024 CMP(C OMPRE HENSI VE METAB OLIC PANEL ) albumin 3.8 g/dL 3.5-5. 0 Not Available [facility] (Lab) [address], [place], [address], 06/28/2024 04:40:58 06/27/20 24 06/27/2024 CMP(C OMPRE HENSI VE METAB OLIC PANEL ) ALT 20 units /L 9-43 Not Available [facility] (Lab) [address], [place], [address], 06/28/2024 04:40:58 06/27/20 24 06/27/2024 CMP(C OMPRE HENSI VE METAB OLIC PANEL ) alkaline phosphatase 99 units /L 34-104 Not Available [facility] (Lab) [address], [place], [address], 06/28/2024 04:40:58 06/27/20 24 06/27/2024 CMP(C OMPRE HENSI VE METAB OLIC PANEL ) AST 16 units /L 13-39 Not Available [facility] (Lab) [address], [place], [address], 06/28/2024 04:40:58 06/27/20 24 06/27/2024 CMP(C OMPRE HENSI VE METAB OLIC PANEL ) bilirubin, total 0.4 mg/dL 0.2-1. 2 Not Available [facility] (Lab) [address], [place], [address], 06/28/2024 04:40:58 06/27/20 24 06/27/2024 PROTE IN/CR EATIN INE RATIO , URINE creatinine, urine 73.3 mg/dL R-No refer ence range estab lishe d for this assay Not Available [facility] (Lab) [address], [place], [address], 06/28/2024 04:40:59 06/27/20 24 06/27/2024 PROTE IN/CR EATIN INE RATIO , URINE protein, urine 13 mg/dL R-No refer ence range estab lishe d for this assay Not Available [facility] (Lab) [address], [place], [address], 06/28/2024 04:40:59 06/27/20 24 06/27/2024 PROTE IN/CR EATIN INE RATIO , URINE protein/crea tinine ratio, urine 0.18 . No Refer ence Range avail able for Rando m Urine s. A prote in to creat inine ratio of >=0.1 9 is a good predi ctor of signi fican t prote inuri a. A level of <0.14 can rule out signi fican t prote inuri a. Not Available [facility] (Lab) [address] [place], [address], 06/28/2024 04:40:59 06/27/20 24 06/27/2024 URIC ACID uric acid 4.5 mg/dL 2.3-6. 6 Not Available [facility] (Lab) [address] [place], [address], 06/28/2024 04:40:59 07/07/20 24 07/07/2024 CBC W/DIF F WBC 10.1 10'3/ uL 3.5-10 .5 Not Available [facility] (Lab) [address], [place], [address], 07/11/2024 08:51:19 07/07/20 24 07/07/2024 CBC W/DIF F RBC 4.10 10'6/ uL (based on docume nted legal sex) 3.80-5 .20 Not Available [facility] (Lab) [address] , [place], [address], 07/11/2024 08:51:19 07/07/20 24 07/07/2024 CBC W/DIF F HGB 12.6 g/dL (based on docume nted legal sex) 11.6-1 5.4 Not Available [facility] (Lab) [address] [place], [address], 07/11/2024 08:51:19 07/07/20 24 07/07/2024 CBC W/DIF F HCT 38.4 % (based on docume nted legal sex) 34.0-4 5.0 Not Available [facility] (Lab) [address] [place], [address], 07/11/2024 08:51:19 07/07/20 24 07/07/2024 CBC W/DIF F MCV 93.2 fL 80.0-9 9.0 Not Available [facility] (Lab) [address] , [place], [address], 07/11/2024 08:51:19 07/07/20 24 07/07/2024 CBC W/DIF F MCH 30.6 pg 27.0-3 4.0 Not Available [facility] (Lab) [address], [place], [address], 07/11/2024 08:51:19 07/07/20 24 07/07/2024 CBC W/DIF F MCHC 32.8 g/dL 32.0-3 5.5 Not Available [facility] (Lab) [address], [place], [address], 07/11/2024 08:51:19 07/07/20 24 07/07/2024 CBC W/DIF F RDW 13.4 % 11.0-1 5.0 Not Available [facility] (Lab) [address], [place], [address], 07/11/2024 08:51:19 07/07/20 24 07/07/2024 CBC W/DIF F plt 134 10'3/ uL 150-40 0 low Not Available [facility] (Lab) [address], [place], [address], 07/11/2024 08:51:19 07/07/20 24 07/07/2024 CBC W/DIF F MPV 12.5 fL 8.8-12 .1 high Not Available [facility] (Lab) [address], [place], [address], 07/11/2024 08:51:19 07/07/20 24 07/07/2024 CBC W/DIF F NRBC's 0.0 % 0.0 Not Available [facility] (Lab) [address], [place], [address], 07/11/2024 08:51:19 07/07/20 24 07/07/2024 CBC W/DIF F absolute NRBCs 0.0 10'3/ uL no refere nce range establ ished Not Available [facility] (Lab) [address], [place], [address], 07/11/2024 08:51:19 07/07/20 24 07/07/2024 CBC W/DIF F neutrophils 72.7 % 34.0-7 3.0 Not Available [facility] (Lab) [address], [place], [address], 07/11/2024 08:51:19 07/07/20 24 07/07/2024 CBC W/DIF F lymphocytes 16.0 % 15.0-5 0.0 Not Available [facility] (Lab) [address], [place], [address], 07/11/2024 08:51:19 07/07/20 24 07/07/2024 CBC W/DIF F monocytes 8.4 % 1.0-15 .0 Not Available [facility] (Lab) [address] [place], [address], 07/11/2024 08:51:19 07/07/20 24 07/07/2024 CBC W/DIF F eosinophils 0.4 % 0.0-8. 0 Not Available [facility] (Lab) [address], [place], [address], 07/11/2024 08:51:19 07/07/20 24 07/07/2024 CBC W/DIF F basophils 0.4 % 0.0-2. 0 Not Available [facility] (Lab) [address] [place], [address], 07/11/2024 08:51:19 07/07/20 24 07/07/2024 CBC W/DIF F immature granulocytes 2.1 % no define d refere nce range Not Available [facility] (Lab) [address] [place], [address], 07/11/2024 08:51:19 07/07/20 24 07/07/2024 CBC W/DIF F absolute neutrophils 7.3 10'3/ uL 1.5-8. 0 Not Available [facility] (Lab) [address], [place], [address], 07/11/2024 08:51:19 07/07/20 24 07/07/2024 CBC W/DIF F absolute lymphocytes 1.6 10'3/ uL 1.0-4. 0 Not Available [facility] (Lab) [address], [place], [address], 07/11/2024 08:51:19 07/07/20 24 07/07/2024 CBC W/DIF F absolute monocytes 0.9 10'3/ uL 0.2-1. 0 Not Available [facility] (Lab) [address], [place], [address], 07/11/2024 08:51:19 07/07/20 24 07/07/2024 CBC W/DIF F absolute eosinophils 0.0 10'3/ uL 0.0-0. 6 Not Available [facility] (Lab) [address] [place], [address], 07/11/2024 08:51:19 07/07/20 24 07/07/2024 CBC W/DIF F absolute basophils 0.0 10'3/ uL 0.0-0. 3 Not Available [facility] (Lab) [address], [place], [address], 07/11/2024 08:51:19 07/07/20 24 07/07/2024 CBC W/DIF F absolute immature granulocytes 0.2 10'3/ uL 0.00-0 .10 high Not Available [facility] (Lab) [address] [place], [address], 07/11/2024 08:51:19 07/07/20 24 07/07/2024 CMP(C OMPRE HENSI VE METAB OLIC PANEL ) sodium 138 mmol/ L 133-14 6 Not Available [facility] (Lab) [address] [place], [address], 07/11/2024 08:51:20 07/07/20 24 07/07/2024 CMP(C OMPRE HENSI VE METAB OLIC PANEL ) potassium 3.9 mmol/ L 3.5-5. 1 Not Available [facility] (Lab) [address], [place], [address], 07/11/2024 08:51:20 07/07/20 24 07/07/2024 CMP(C OMPRE HENSI VE METAB OLIC PANEL ) chloride 105 mmol/ L 98-107 Not Available [facility] (Lab) [address], [place], [address], 07/11/2024 08:51:20 07/07/20 24 07/07/2024 CMP(C OMPRE HENSI VE METAB OLIC PANEL ) carbon dioxide 24 mmol/ L 21-31 Not Available [facility] (Lab) [address], [place], [address], 07/11/2024 08:51:20 07/07/20 24 07/07/2024 CMP(C OMPRE HENSI VE METAB OLIC PANEL ) anion gap 9 mmol/ L 4-13 Not Available [facility] (Lab) [address], [place], [address], 07/11/2024 08:51:20 07/07/20 24 07/07/2024 CMP(C OMPRE HENSI VE METAB OLIC PANEL ) blood urea nitrogen 12 mg/dL 7-25 Not Available [facility] (Lab) [address], [place], [address], 07/11/2024 08:51:20 07/07/20 24 07/07/2024 CMP(C OMPRE HENSI VE METAB OLIC PANEL ) creatinine 0.68 mg/dL 0.60-1 .30 Not Available [facility] (Lab) [address], [place], [address], 07/11/2024 08:51:20 07/07/20 24 07/07/2024 CMP(C OMPRE HENSI VE METAB OLIC PANEL ) egfrcr (CKD-epi 2020) >90 mL/mi n/1.7 3_m2 >=60 Not Available [facility] (Lab) [address], [place], [address], 07/11/2024 08:51:20 07/07/20 24 07/07/2024 CMP(C OMPRE HENSI VE METAB OLIC PANEL ) calcium 9.0 mg/dL 8.3-10 .5 Not Available [facility] (Lab) [address], [place], [address], 07/11/2024 08:51:20 07/07/20 24 07/07/2024 CMP(C OMPRE HENSI VE METAB OLIC PANEL ) glucose 78 mg/dL 70-100 Not Available [facility] (Lab) [address], [place], [address], 07/11/2024 08:51:20 07/07/20 24 07/07/2024 CMP(C OMPRE HENSI VE METAB OLIC PANEL ) protein, total 6.5 g/dL 6.4-8. 3 Not Available [facility] (Lab) [address], [place], [address], 07/11/2024 08:51:20 07/07/20 24 07/07/2024 CMP(C OMPRE HENSI VE METAB OLIC PANEL ) albumin 3.7 g/dL 3.5-5. 0 Not Available [facility] (Lab) [address], [place], [address], 07/11/2024 08:51:20 07/07/20 24 07/07/2024 CMP(C OMPRE HENSI VE METAB OLIC PANEL ) ALT 16 units /L 9-43 Not Available [facility] (Lab) [address], [place], [address], 07/11/2024 08:51:20 07/07/20 24 07/07/2024 CMP(C OMPRE HENSI VE METAB OLIC PANEL ) alkaline phosphatase 115 units /L 34-104 high Not Available [facility] (Lab) [address], [place], [address], 07/11/2024 08:51:20 07/07/20 24 07/07/2024 CMP(C OMPRE HENSI VE METAB OLIC PANEL ) AST 16 units /L 13-39 Not Available [facility] (Lab) [address], [place], [address], 07/11/2024 08:51:20 07/07/20 24 07/07/2024 CMP(C OMPRE HENSI VE METAB OLIC PANEL ) bilirubin, total 0.4 mg/dL 0.2-1. 2 Not Available [facility] (Lab) [address], [place], [address], 07/11/2024 08:51:20 07/07/20 24 07/07/2024 URIC ACID uric acid 5.2 mg/dL 2.3-6. 6 Not Available [facility] (Lab) [address], [place], [address], 07/11/2024 08:51:20 07/07/20 24 07/07/2024 PROTE IN/CR EATIN INE RATIO , URINE creatinine, urine 46.4 mg/dL Not Available [facility] (Lab) [address], [place], [address], 07/11/2024 08:51:20 07/07/20 24 07/07/2024 PROTE IN/CR EATIN INE RATIO , URINE protein, urine 10 mg/dL Not Available [facility] (Lab) [address] [place], [address], 07/11/2024 08:51:20 07/07/20 24 07/07/2024 PROTE IN/CR EATIN INE RATIO , URINE protein/crea tinine ratio, urine 0.22 . No Refer ence Range avail able for Rando m Urine s. A prote in to creat inine ratio of >=0.1 9 is a good predi ctor of signi fican t prote inuri a. A level of <0.14 can rule out signi fican t prote inuri a. Not Available [facility] (Lab) [address], [place], [address], 07/11/2024 08:51:20 07/21/1907/21/2024 CMP/C BC/UR IC ACID WBC 11.8 10'3/ uL 3.5-10 .5 high Not Available [facility] (Lab) [address], [place], [address], 07/22/2024 06:08:43 07/21/1907/21/2024 CMP/C BC/UR IC ACID RBC 4.07 10'6/ uL (based on docume nted legal sex) 3.80-5 .20 Not Available [facility] (Lab) [address], [place], [address], 07/22/2024 06:08:43 07/21/19 25 07/21/2024 CMP/C BC/UR IC ACID HGB 12.3 g/dL (based on docume nted legal sex) 11.6-1 5.4 Not Available [facility] (Lab) [address], [place], [address], 07/22/2024 06:08:43 07/21/1907/21/2024 CMP/C BC/UR IC ACID HCT 36.5 % (based on docume nted legal sex) 34.0-4 5.0 Not Available [facility] (Lab) [address] [place], [address], 07/22/2024 06:08:43 07/21/1907/21/2024 CMP/C BC/UR IC ACID MCV 89.7 fL 80.0-9 9.0 Not Available [facility] (Lab) [address], [place], [address], 07/22/2024 06:08:43 07/21/1907/21/2024 CMP/C BC/UR IC ACID MCH 30.2 pg 27.0-3 4.0 Not Available [facility] (Lab) [address], [place], [address], 07/22/2024 06:08:43 07/21/1907/21/2024 CMP/C BC/UR IC ACID MCHC 33.7 g/dL 32.0-3 5.5 Not Available [facility] (Lab) [address], [place], [address], 07/22/2024 06:08:43 07/21/1907/21/2024 CMP/C BC/UR IC ACID RDW 13.3 % 11.0-1 5.0 Not Available [facility] (Lab) [address], [place], [address], 07/22/2024 06:08:43 07/21/1907/21/2024 CMP/C BC/UR IC ACID plt 138 10'3/ uL 150-40 0 low Not Available [facility] (Lab) [address], [place], [address], 07/22/2024 06:08:43 07/21/1907/21/2024 CMP/C BC/UR IC ACID MPV 12.5 fL 8.8-12 .1 high Not Available [facility] (Lab) [address], [place], [address], 07/22/2024 06:08:43 07/21/1907/21/2024 CMP/C BC/UR IC ACID neutrophils 71.0 % 34.0-7 3.0 Not Available [facility] (Lab) [address] [place], [address], 07/22/2024 06:08:43 07/21/1907/21/2024 CMP/C BC/UR IC ACID lymphocytes 18.3 % 15.0-5 0.0 Not Available [facility] (Lab) [address] [place], [address], 07/22/2024 06:08:43 07/21/19 25 07/21/2024 CMP/C BC/UR IC ACID monocytes 8.3 % 1.0-15 .0 Not Available [facility] (Lab) [address], [place], [address], 07/22/2024 06:08:43 07/21/19 25 07/21/2024 CMP/C BC/UR IC ACID eosinophils 0.4 % 0.0-8. 0 Not Available [facility] (Lab) [address], [place], [address], 07/22/2024 06:08:43 07/21/19 25 07/21/2024 CMP/C BC/UR IC ACID basophils 0.4 % 0.0-2. 0 Not Available [facility] (Lab) [address], [place], [address], 07/22/2024 06:08:43 07/21/19 25 07/21/2024 CMP/C BC/UR IC ACID immature granulocytes 1.6 % no define d refere nce range Immat ure Granu locyt es (IG) repre sents autom ated enume ratio n of Metam yeloc ytes, Myelo cytes and Promy elocy ester when IG is < 5%. Blast s are not inclu ded in IG and repor jason separ ately if prese nt. Not Available [facility] (Lab) [address], [place], [address], 07/22/2024 06:08:43 07/21/19 25 07/21/2024 CMP/C BC/UR IC ACID absolute neutrophils 8.4 10'3/ uL 1.5-8. 0 high Not Available [facility] (Lab) [address], [place], [address], 07/22/2024 06:08:43 07/21/19 25 07/21/2024 CMP/C BC/UR IC ACID absolute lymphocytes 2.2 10'3/ uL 1.0-4. 0 Not Available [facility] (Lab) [address] [facility], [place], [address], 07/22/2024 06:08:43 07/21/19 25 07/21/2024 CMP/C BC/UR IC ACID absolute monocytes 1.0 10'3/ uL 0.2-1. 0 Not Available [facility] (Lab) [address] [facility], [place], [address], 07/22/2024 06:08:43 07/21/19 25 07/21/2024 CMP/C BC/UR IC ACID absolute eosinophils 0.1 10'3/ uL 0.0-0. 6 Not Available [facility] (Lab) [address] [facility], [place], [address], 07/22/2024 06:08:43 07/21/1907/21/2024 CMP/C BC/UR IC ACID absolute basophils 0.1 10'3/ uL 0.0-0. 3 Not Available [facility] (Lab) [address] [facility], [place], [address], 07/22/2024 06:08:43 07/21/1907/21/2024 CMP/C BC/UR IC ACID absolute immature granulocytes 0.2 10'3/ uL 0.00-0 .10 high Refer ence range s for nonbi nary/ inter sex or unspe cifie d gende r patie nts have not been estab lishe d. Pleas e refer to the [facility] for range s estab lishe d for cisge nder patie nts and evalu ate in the clini asif wolfgang xt of the indiv idual patie nt: https ://antonieta serrano book. nm.or g/Gen derX Not Available [facility] (Lab) [address] [facility], [place], [address], 07/22/2024 06:08:43 07/21/1907/21/2024 CMP/C BC/UR IC ACID uric acid 5.2 mg/dL 2.3-6. 6 Not Available [facility] (Lab) [address] [facility], [place], [address], 07/22/2024 06:08:43 07/21/19 25 07/21/2024 CMP/C BC/UR IC ACID sodium 137 mmol/ L 133-14 6 Not Available [facility] (Lab) [address] [facility], [place], [address], 07/22/2024 06:08:43 07/21/19 25 07/21/2024 CMP/C BC/UR IC ACID potassium 3.9 mmol/ L 3.5-5. 1 Not Available [facility] (Lab) [address] [facility], [place], [address], 07/22/2024 06:08:43 07/21/19 25 07/21/2024 CMP/C BC/UR IC ACID chloride 106 mmol/ L 98-107 Not Available [facility] (Lab) [address] [facility], [place], [address], 07/22/2024 06:08:43 07/21/19 25 07/21/2024 CMP/C BC/UR IC ACID carbon dioxide 22 mmol/ L 21-31 Not Available [facility] (Lab) [address] [facility], [place], [address], 07/22/2024 06:08:43 07/21/19 25 07/21/2024 CMP/C BC/UR IC ACID anion gap 9 mmol/ L 4-13 Not Available [facility] (Lab) [address] [place], [address], 07/22/2024 06:08:43 07/21/19 25 07/21/2024 CMP/C BC/UR IC ACID blood urea nitrogen 15 mg/dL 7-25 Not Available [facility] (Lab) [address] [place], [address], 07/22/2024 06:08:43 07/21/19 25 07/21/2024 CMP/C BC/UR IC ACID creatinine 0.71 mg/dL 0.60-1 .30 Not Available [facility] (Lab) [address] [facility], [place], [address], 07/22/2024 06:08:43 07/21/1907/21/2024 CMP/C BC/UR IC ACID egfrcr (CKD-epi 2020) >90 mL/mi n/1.7 3_m2 >=60 Not Available [facility] (Lab) [address] [facility], [place], [address], 07/22/2024 06:08:43 07/21/1907/21/2024 CMP/C BC/UR IC ACID calcium 9.4 mg/dL 8.3-10 .5 Not Available [facility] (Lab) [address] [facility], [place], [address], 07/22/2024 06:08:43 07/21/1907/21/2024 CMP/C BC/UR IC ACID glucose 85 mg/dL 70-100 Not Available [facility] (Lab) [address] [facility], [place], [address], 07/22/2024 06:08:43 07/21/19 25 07/21/2024 CMP/C BC/UR IC ACID protein, total 6.4 g/dL 6.4-8. 3 Not Available [facility] (Lab) [address] [place], [address], 07/22/2024 06:08:43 07/21/19 25 07/21/2024 CMP/C BC/UR IC ACID albumin 3.6 g/dL 3.5-5. 0 Not Available [facility] (Lab) [address] [place], [address], 07/22/2024 06:08:43 07/21/19 25 07/21/2024 CMP/C BC/UR IC ACID ALT 17 units /L 9-43 Not Available [facility] (Lab) [address] [place], [address], 07/22/2024 06:08:43 07/21/19 25 07/21/2024 CMP/C BC/UR IC ACID alkaline phosphatase 145 units /L 34-104 high Not Available [facility] (Lab) [address] [facility], [place], [address], 07/22/2024 06:08:43 07/21/19 25 07/21/2024 CMP/C BC/UR IC ACID AST 17 units /L 13-39 Not Available [facility] (Lab) [address] [facility], [place], [address], 07/22/2024 06:08:43 07/21/19 25 07/21/2024 CMP/C BC/UR IC ACID bilirubin, total 0.4 mg/dL 0.2-1. 2 Not Available [facility] (Lab) [address] [place], [address], 07/22/2024 06:08:43 07/21/19 25 07/21/2024 PROTE IN/CR EATIN INE RATIO , URINE creatinine, urine 79.9 mg/dL R-No refer ence range estab lishe d for this assay Not Available [facility] (Lab) [address] [place], [address], 07/22/2024 06:08:44 07/21/19 25 07/21/2024 PROTE IN/CR EATIN INE RATIO , URINE protein, urine 14 mg/dL R-No refer ence range estab lishe d for this assay Not Available [facility] (Lab) [address] [facility], [place], [address], 07/22/2024 06:08:44 07/21/19 25 07/21/2024 PROTE IN/CR EATIN INE RATIO , URINE protein/crea tinine ratio, urine 0.18 . No Refer ence Range avail able for Rando m Urine s. A prote in to creat inine ratio of >=0.1 9 is a good predi ctor of signi shyann t prote inuri a. A level of <0.14 can rule out signi fican t prote inuri a. Not Available [facility] (Lab) [address], [place], [address], 07/22/2024 06:08:44 06/25/20 24 06/25/2024 US, obste tric, follo w-up No observ ation record ed. [email or web address] [facility] [address] [place], [address], 06/26/2024 13:36:23 06/27/20 24 06/25/2024 US, obste tric, follo w-up No observ ation record ed. [email or web address] [facility] [address] [place], [address], 07/11/2024 11:21:50 06/30/20 24 06/30/2024 non-s tress test No observ ation record ed. [email or web address] [place] [address], [place], [address], 06/30/2024 16:21:35 07/07/20 24 07/07/2024 non-s tress test No observ ation record ed. [email or web address] [place] [address], [place], [address], 07/07/2024 21:17:27 07/10/19 25 07/10/2024 US, obste tric, bioph ysica l profi le No observ ation record ed. [email or web address] [place] [address], [place], [address], 07/10/2024 18:24:47 07/10/19 25 07/10/2024 US, obste tric, bioph ysica l profi le No observ ation record ed. [email or web address] [place] [address], [place], [address], 07/10/2024 21:55:58 07/15/19 25 07/07/2024 non-s tress test No observ ation record ed. [email or web address] [place] [address], [place], [address], 07/15/2024 11:35:49 07/15/19 25 07/15/2024 US, obste tric, bioph ysica l profi le + non-s tress test No observ ation record ed. [email or web address] [place] [address], [place], [address], 07/15/2024 16:35:24 07/15/19 25 07/15/2024 US, obste tric, bioph ysica l profi le + non-s tress test No observ ation record ed. [email or web address] [address] [facility], [place], [address], 07/15/2024 21:29:07 07/15/19 25 07/15/2024 non-s tress test No observ ation record ed. [email or web address] [place] [address], [place], [address], 07/15/2024 16:53:50 07/23/19 25 07/23/2024 US, obste tric, follo w-up No observ ation record ed. [email or web address] [facility] [address], [place], [address], 07/25/2024 20:57:14 07/25/19 25 07/23/2024 US, obste tric, follo w-up No observ ation record ed. [email or web address] [facility] [address], [place], [address], 07/29/2024 07:32:34 07/29/19 25 07/29/2024 US, obste tric, bioph ysica l profi le + non-s tress test No observ ation record ed. [email or web address] [place] [address], [place], [address], 07/29/2024 17:42:55 07/29/19 25 07/29/2024 US, obste tric, follo w-up No observ ation record ed. [email or web address] [place] [address], [place], [address], 07/30/2024 09:24:07 07/29/19 25 07/29/2024 non-s tress test No observ ation record ed. [email or web address] [place] [address], [place], [address], 07/29/2024 16:39:39 Result Notes None recorded. Problems Name Problem SNOMED Code Status Onset Date Resolution Date Notes Provider Name and Address Organization Details Recorded Time 18623040 Active 2023 Chantel Nguyen null, [facility] 4 16:12:34 Kidney disease 28012833 Active medullary sponge kidney, seen by MFBrandi NICOLE MD [address], [place], [address], [facility] 4 12:07:32 Complicat ed migraine 666184951 Active Anthony Perkins MD [address], [place], [address], [facility] 4 16:25:18 Hypertens camron disorder 68440735 Active no meds - 38wk delivery, 32wk antentata l testing weekly Lynnette Renee [facility], [facility] 4 14:45:34 Hypertens camron disorder 93107376 Active no meds - 38wk delivery, 32wk antentata l testing weekly Lynnette Renee [facility], [facility] 4 14:45:34 Hypertens camron disorder 74622708 Active no meds Lynnette Renee null, [facility] 4 14:45:34 Kidney disease 06120859 Active medullary sponge kidney, seen by MFM ARUN NICOLE MD [address], [place], [address], [facility] 4 12:07:37 Advanced maternal age 590302884 Active Lynnette Renee null, [facility] 4 14:42:27 Cardiac arrhythmi a 402721385 Active 2023 MFM rec EKG- normal, maternal ECHO, cardiolog y referral if needed ARUN NICOLE MD [address], [place], [address], [facility] 4 14:24:21 Breech presentat ion 0475305 Active 2023 ARUN NICOLE MD [address], [place], [address], [place] [facility] 4 00:46:39 Problem Notes None recorded. Procedures Surgical History Date Name Laterality Status Provider Name and Address Organization Details Recorded Time 4 Date of Last Pap Smear completed Chantel Nguyen [facility] 02/11/2024 16:12:10 6 extraction of wisdom tooth completed Chantel Nguyen [facility] 02/12/2024 18:23:38 Imaging Results Imaging Date Name Status LastModified by Organiz ation Details LastModified Time 06/25/2024 US, obstetric, follow-up completed [address] [facility] [address] [place], [address], 06/26/2024 13:36:23 06/25/2024 US, obstetric, follow-up completed [email or web address] [facility] [address], [place], [address], 07/11/2024 11:21:50 06/30/2024 non-stress test completed [email or web address] [place] [address], [place], [address], 06/30/2024 16:21:35 07/07/2024 non-stress test completed [email or web address] [place] [address], [place], [address], 07/07/2024 21:17:27 07/10/2024 US, obstetric, biophysical profile completed [email or web address] [place] [address], [place], [address], 07/10/2024 18:24:47 07/10/2024 US, obstetric, biophysical profile completed [email or web address] [place] [address], [place], [address], 07/10/2024 21:55:58 07/07/2024 non-stress test completed [email or web address] [place] [address], [place], [address], 07/15/2024 11:35:49 07/15/2024 US, obstetric, biophysical profile + non-stress test completed [email or web address] [place] [address], [place], [address], 07/15/2024 16:35:24 07/15/2024 US, obstetric, biophysical profile + non-stress test completed [email or web address] [place] [address], [place], [address], 07/15/2024 21:29:07 07/15/2024 non-stress test completed [email or web address] [place] [address], [place], [address], 07/15/2024 16:53:50 07/23/2024 US, obstetric, follow-up [email or web address] [address], [place], [address], 07/25/2024 20:57:14 07/23/2024 US, obstetric, follow-up completed [email or web address] [facility] [address], [place], [address], 07/29/2024 07:32:34 07/29/2024 US, obstetric, biophysical profile + non-stress test completed [facility] [address], [place], [address], 07/29/2024 17:42:55 07/29/2024 US, obstetric, follow-up completed [email or web address] [place] [address], [place], [address], 07/30/2024 09:24:07 07/29/2024 non-stress test completed [email or web address] [place] [address] [address], [place], [address], 07/29/2024 16:39:39 Procedure Notes None recorded. Medical Equipment None Reported. Allergies Allergen ID Allergen Name Allergen Category Reaction Reaction Severity Criticality Documentation Date Start Date Code Code System Note Provider Name and Address Organization Details Recorded Time 27179 Hayfever medicatio n Not available Not available Not available 01/29/2024 13596 UNK Bita Amy [facility] 14:29:27 98279 chlorphen iramine / phenylpro panolamin e medicatio n eye swelling moderate Not available 02/11/2024 40363 4 RxNorm Chantel Nguyen [facility] 16:04:13 Medications Name Sig Start Date Stop Date Status Note LastModified by Organization Details LastModified Time nifedipine ER 30 mg tablet,exten ded release TAKE 1 TABLET BY MOUTH DAILY ON AN EMPTY STOMACH 05/05 completed Not Available Not Available Not Available metocloprami de 10 mg tablet Take 1 tablet 4 times a day by oral route as needed. 2024 active Not Available Not Available Not Avai lable Tums active Not Available Not Availa ble Not Available Baby Aspirin active Not Available Not Available Not Available + DHA active Not Available Not Available Not Available Vitals Date Recorded Body height Body mass index (BMI) Body weight Systolic blood pressure Diastolic blood pressure Provider Name and Address Organization Details Last Updated DateTime 07/15/2024 167.64 cm 41.8 kg/m2 576462.4 2 g 143 mm[Hg] 101 mm[Hg] [facility] 5 16:28:58 Date Recorded Body height Body mass index (BMI) Body weight Systolic blood pressure Diastolic blood pressure Provider Name and Address Organization Details Last Updated DateTime 07/21/2024 167.64 cm 33.4 kg/m2 94134.62 g 144 mm[Hg] 84 mm[Hg] [facility] 16:25:26 Date Recorded Body height Body mass index (BMI) Body weight Systolic blood pressure Diastolic blood pressure Provider Name and Address Organization Details Last Updated DateTime 07/29/2024 167.64 cm 33.4 kg/m2 10825.62 g 150 mm[Hg] 88 mm[Hg] [facility] 5 16:08:14 Social History Question Answer Notes LastModified by Organizat ion Details LastModified Time Tobacco Smoking Status Never Smoker Bita Reyes [facility] 01/29/2024 14:38:33 What Is Your Level Of Alcohol Consumption? None Information not available 02/11/2024 Are You Blind Or Do You Have Difficulty Seeing? No Information not available 01/29/2024 What Is Your Level Of Caffeine Consumption? Occasional Information not available 01/29/2024 How Much Tobacco Do You Chew? None Information not available 01/29/2024 In The 14 Days Before Symptom Onset, Have You Had Close Contact With A Laboratory-confir med COVID-19 While That Case Was Ill? No Information not available 01/29/2024 In The 14 Days Before Symptom Onset, Have You Had Close Contact With A Person Who Is Under Investigation For COVID-19 While That Person Was Ill? No Information not available 01/29/2024 Have You Been To An Area Known To Be High Risk For COVID-19? No Information not available 01/29/2024 Are You Deaf Or Do You Have Serious Difficulty Hearing? No Information not available 01/29/2024 What Type Of Diet Are You Following? REGULAR Information not available 01/29/2024 What Is The Highest Grade Or Level Of School You Have Completed Or The Highest Degree You Have Received? 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 No Information not available 01/29/2024 Do You Use Protection During Sex? No Information not available 01/29/2024 Do You Use Your Seat Belt Or Car Seat Routinely? Yes Information not available 01/29/2024 Do You Have Smoke And Carbon Monoxide Detectors In Your Home? Yes Information not available 01/29/2024 How Much Tobacco Do You Smoke? No Information not available 01/29/2024 Do You Feel Stressed (tense, Restless, Nervous, Or Anxious, Or Unable To Sleep At Night)? [id number] [email or web address] Information not available 02/11/2024 Do You Use Any Illicit Or Recreational Drugs? No Information not available 01/29/2024 Do You Use Sunscreen Routinely? Yes Information not available 01/29/2024 Have You Used IV Drugs? No Information not available 01/29/2024 Sex: Unknown Functional Status Question Answer Note LastModified by Organizat ion Details LastModified Time Do you have difficulty walking or climbing stairs? No Information not available 01/29/2024 Are you able to walk? YESWOREST Information not available 01/29/2024 Are you able to care for yourself? Yes Information not available 01/29/2024 Do you have difficulty dressing or bathing? No Information not available 01/29/2024 What is your exercise level? Heavy [email or web address] Information not available 02/11/2024 Mental Status None recorded. Family History Relationship Description Onset Age of this Age Resolved Age Notes LastModified by Organization Details LastModified Time Maternal Grandfather Heart disease Not available 02/10 16:04:14 Paternal Grandfather Heart disease [email or web address] Not available 02/10 16:04:14 Father Heart disease [email or web address] Not available 02/10 16:04:14 Medical History Condition Response Allergies (Food, seasonal, environmental ) N Other N Breast Cancer N Drug/Latex Allergies/Reactions N Blood Transfusion N Dermatologic Disorders N Lung Disease N Defects or Inherited Disease N Breast Problem N Gestational Diabetes N Hematologic disorders N Anesthesia Complications N History of STI N Deep Vein Thrombosis N Polycystic ovary syndrome N Anxiety Disorder N Autoimmune disease N Arthritis N Infertility N Polyps N Acid Reflux (GERD) N History of abnormal pap N Cancer N Stroke N Varicosities N Neurologic/Epilepsy N Endometriosis N High Cholesterol N Headaches Y Fibromyalgia N Kidney Disease Y Heart Problems N Kidney or Bladder Problems Y Thyroid Problems N GI Problems N Eating Disorder N Anemia N Art (IVF or FET) N Psychiatric Illness N Ovarian Cancer N Diabetes N Pulmonary (TB, Asthma) N Hepatitis/Liver Disease N No Past Medical History N Eczema N Urinary Tract Infection N Abuse/Domestic Violence N Asthma N Trauma/Violence N Depression/ depression N Heart Disease N Pre-Eclampsia N Hypertension N Osteoporosis N Thrombophilias N Gynecological History Statement/Question Response Date of Last Mammogram Date of LMP 11/24/2023 On BCP's at Conception? N N Was last menstrual period normal Y STIs/STDs N HPV Vaccine Y Duration of Flow (days) 4 Current Control Method Date of Last Colonoscopy Frequency of Cycle (Q days) 25 Sexually Active? Y Unknown Menses Monthly Y Date of DEXA bone scan Age of first menstrual cycle 17 Date of Last Pap Smear 01/29/2024 Sexual Problems? N Desired Control Method N/A LMP Definite N Obstetrics History GPAL:G 2 P 0 0 1 0 Type Value Spontaneous 1 Living 0 Total 2 Past Encounters Encounter ID Performer Location Encounter Start Date Encounter Closed Date Diagnosis/Indication Diagnosis SNOMED-CT Code Diagnosis ICD10 Code Diagnosis [id number] [address] [address] 01/29/2024 13:43:37 01/29/2024 14:37:09 [id number] ARUN NICOLE MD [place] [address],[place] [address] 01/29/2024 13:45:30 01/29/2024 15:26:42 test positive 417095763 Z32.01 1. Exam today within normal limits.2. Ultrasound today confirms GA and viability. EDC . GC/Clamydi a testing and pap smear done: will f/u as indicated. 4. ACOG guidelines and plan of care for reviewed with patient. All questions answered.5 . Return to office at 12 weeks for new OB visit6. Will need new OB labs at next visit.7. Genetic screening: desires at 10 weeks, orders given today. [id number] [facility] [address],[place] [address] 02/11/2024 14:54:40 02/11/2024 17:41:48 screening 228666702 Z36.82 Z3A.12 [id number] Chantel Nguyen [place] [address],[place] [address] 02/11/2024 14:55:29 02/11/2024 17:41:26 Routine care 316166176 Z34.90 O26.891 Low back p ain in 8789266013 106 O26.899 Gestation period, 11 weeks 85492120 Z3A.11 [id number] Gloria Josh [place] [address],[place] [address] 02/19/2024 15:26:30 02/19/2024 16:03:40 Spotting per vagina in 146342062 O26.851 Z3A.13 [id number] ARUN NICOLE MD [place] [address],[place] [address] 02/19/2024 15:45:20 02/19/2024 16:44:29 Urinary symptoms 886162119 R39.9 - patient reports some cramping back pain, no fevers, chills, or dysuria- UA clean in office today- patient to continue PO hydration, no further workup needed at this time Bleeding f rom female genital tract during 9092706256 4990404 O46.91 - vaginal spotting with wiping, no recent trauma or intercours e- US reassuring today, normal FHR and movement, placenta appears normal with no subchorion ic hemorrhage - no restrictio ns, monitor for further bleeding [id number] ARUN NICOLE MD [place] [address],[place] [address] 03/12/2024 11:10:37 03/12/2024 12:11:21 Hypertensive disorder 45915844 I10 Kidney disease 37445416 N08 Gestation period, 16 weeks 52556632 Z3A.16 [id number] ARUN NICOLE MD [place] [address],[place] [address] 04/07/2024 15:05:05 04/08/2024 08:45:59 Chronic hypertension complicating AND/OR reason for care during 74367286 O16.9 Breech presentation 6096 002 O32.1XX9 Kidney disease 44258246 N08 Advanced m aternal age 551037638 O09.529 Cardiac arrhythmia 25289 7007 I49.9 Gestation period, 19 weeks 58582135 Z3A.19 [id number] ARUN NICOLE MD [place] [address],[place] [address] 05/05/2024 14:02:28 05/09/2024 11:36:24 Chronic hypertension complicating AND/OR reason for care during 62322749 O16.9 Hypertensive disorder 38 471785 I10 Kidney disease 31311076 N08 Transverse lie 65508339 O32.2XX9 Advanced m aternal age 693441067 O09.529 Gestation period, 23 weeks 36846952 Z3A.23 [id number] ARUN NICOLE MD [place] [address],[place] [address] 06/03/2024 09:29:54 06/03/2024 10:35:54 Hypertensive disorder 48295646 I10 Kidney disease 80123673 N08 Chronic hy pertension complicating AND/OR reason for care during 42282252 O16.9 Advanced m aternal age 008039128 O09.529 Gestation period, 28 weeks 03508927 Z3A.28 [id number] ARUN NICOLE MD [place] [address],[place] [address] 06/16/2024 14:38:34 06/16/2024 15:49:45 Advanced maternal age 443226774 O09.529 Chronic hy pertension complicating AND/OR reason for care during 88682569 O16.9 Gestation period, 29 weeks 41051583 Z3A.29 [id number] Joya Coburn [place] [address],[place] [address] 06/30/2024 14:26:58 06/30/2024 16:33:56 Chronic hypertension complicating AND/OR reason for care during 79477635 O16.9 [id number] ARUN NICOLE MD [place] [address],[place] [address] 06/30/2024 14:27:26 06/30/2024 15:59:05 Advanced maternal age 475297555 O09.529 Kidney disease 12855506 N08 Breech presentation 6096 002 O32.1XX9 Gestation period, 31 weeks 08084601 Z3A.31 Chronic hy pertension complicating AND/OR reason for care during 33295806 O16.9 [id number] Chantel Nguyen [place] [address],[place] [address] 07/07/2024 13:54:09 07/08/2024 06:10:25 -induced hypertension 72004977 O13.9 [id number] Anthony Perkins MD [place] [address],[place] [address] 07/07/2024 13:54:37 07/07/2024 16:00:27 Routine care 342074266 Z34.90 O26.891 [id number] Gloria Moreno [place] [address],[place] [address] 07/10/2024 16:54:17 07/10/2024 17:41:16 Advanced maternal age 350637358 O09.523 O16.3 O09.293 O99.893 Z3A.33 [id number] Joya Coburn [place] [address],[place] [address] 07/15/2024 15:23:11 07/15/2024 16:56:57 Chronic hypertension complicating AND/OR reason for care during 00636644 O16.9 [id number] [facility] [address],[place] [address] 07/15/2024 15:23:25 07/15/2024 16:26:06 Advanced maternal age 153769748 O09.523 O16.3 O09.293 O99.893 Z3A.34 [id number] ARUN NICOLE MD [facility] [address],[place] [address] 07/15/2024 16:01:40 07/23/2024 01:08:03 Chronic hypertension complicating AND/OR reason for care during [id number] O16.9 - intermitte nt headaches, otherwise asymptomat ic- BP mild range- labs wnl 1 week ago, repeat today- return precaution s reviewed Advanced m aternal age [id number] O09.529 Kidney disease 47581403 N08 Gestation period, 35 weeks 17297303 Z3A.35 [id number] ARUN NICOLE MD [place] [address],[place] [address] 07/21/2024 16:14:55 07/23/2024 06:39:16 Chronic hypertension complicating AND/OR reason for care during 28758535 O16.9 - intermitte nt headaches, otherwise asymptomat ic- BP mild range- labs wnl 1 week ago, repeat today- return precaution s reviewed Advanced m aternal age [id number] O09.529 Kidney disease 18559793 N08 Gestation period, 34 weeks 21602588 Z3A.34 [id number] Gloria [facility] [address],[place] [address] 07/29/2024 14:48:28 07/29/2024 15:34:11 Advanced maternal age [id number] O09.523 O16.3 O09.293 O99.893 Z3A.36 [id number] Joya Coburn [place] [address],[place] [address] 07/29/2024 14:48:41 07/29/2024 16:43:29 Chronic hypertension complicating AND/OR reason for care during 97562984 O16.9 - intermitte nt headaches, otherwise asymptomat ic- BP mild range- labs wnl 1 week ago, repeat today- return precaution s reviewed [id number] ARUN NICOLE MD [place] [address],[place] [address] 07/29/2024 14:49:03 07/29/2024 16:46:28 Headache 36655005 R51.9 Chronic hy pertension complicating AND/OR reason for care during 01379324 O16.9 - intermitte nt headaches, otherwise asymptomat ic- BP mild range- labs wnl 1 week ago, repeat today- return precaution s reviewed Mild pre-eclampsia 49897 007 O14.03 Advanced m aternal age 103886822 O09.529 Kidney disease 06571379 N08 Gestation period, 36 weeks 98861402 Z3A.36 Health Concerns Section Related Observation LastModified by Organization Detai ls LastModified Time None Recorded Concern Status LastModified by Organization Details LastModified Time None Recorded Advance Directives Directive None Recorded Payers Encounter Date Sequence Insurance Name Policy Number Policy Dawn Covered Member ID Dawn Member ID Guarantor Name 07/15/2024 1 [place] [id number] Miguelina Lomaxa [id number] Miguelina Lomaxa 07/21/2024 1 [place] [id number] Miguelina Lomaxa [id number] Miguelina Magnotta 07/29/2024 1 [place] [id number] Miguelina Lomaxa [id number] Miguelina Magnotta 07/29/2024 1 [place] [id number] Miguelina Diaz [id number] Miguelina Diaz 07/29/2024 1 [place] [id number] Miguelina Diaz [id number] Miguelina Diaz OBGyn Episode Ob Episode Information Episode Created Date Number of Fetuses Patient Bloodtype Patient rh Status Prepregnancy Weight lbs Domestic Partner Domestic Partner Phone Father Name [employer] Person Status 02/11/20 1 A Positive 156 [place] OPEN Fetus Data First Name Last Name Admitted to NICU Weight (g) Sex Living Outcome Pediatric Complications Fetus ID Race Codes Race Delivery Type [id number] Problems Problem Notes [facility] 05/15 echo, 05/28 9 am 07/23/24 US, [employer] office visit Recommendations: prompt eval with s/s UTI or kidney stones, establish with nephrology for follow up([facility] sent), nifedipine 30mg AM, LDASA 2tabs evening, home BP monitoring, send logs weekly, 1x/week BPP/NST/ALICIA at 32wks, serial growth q4wks, delivery recommendations (04/30 consult note), EKG, maternal echo if CHTN for 10+ years. echo scheduled for 05/15/24, neurology consult orders for migraines, follow up eye exam needed. Problem Name Start Date End Date Resolution Snomed Code Not e Hypertensive disorder [id number] no meds - 38wk delivery, 32wk antentatal testing weekly Complicated migraine 230031999 Kidney disease 97568753 medul hilda sponge kidney, seen by [facility] Cardiac arrhythmia 04/03/2024 [id number] [facility] rec EKG- normal, maternal ECHO, cardiology referral if needed Breech presentation 04/07/2024 [id number] Advanced maternal age [id number] Bhanu Calculation Initial Bhanu Date Initial Exam Date Initial Exam Provider Initial Ultrasound Date Last Menstrual Period Date Ultra Sound Weeks Gestation 08/26/2024 01/29/2024 [id number] 01/29/2024 11/25/2023 10 Eighteen To Twenty Week Bhanu Update Ultra Sound Date Fundal Height At Umbil Quickening Date Ultra Sound Latest Weeks Gestation Final Bhanu Confirmed By Final Bhanu Confirmed Date Final Bhanu Date Ultra Sound Latest Days Gestation 0 0 Pre-tisha Flowsheet Flowsheet Date 02/11/2024 Alex Score Blood Edema Fundus Height Fundus Units Glucose Ketones Leukocytes Nitrite Labor Signs Protein Cervic Dilation Cervic Effacement Cervic Station trace none trace Type Weight in lbs Pre/Post Dialysis Refused Weight 160.467509503818 BP Diastolic BP Location Tested BP Systolic BP Type 91 154 86 138 Fetus Heart Rate Present Fetus Movement A No Comments this patient is a 39-year-ol d primiparous female at 12 weeks' gestation who presents for initial care. She has a history of term vaginal births. Her medical, surgical, obstetric history is unremarkable. She is vaccinated. She was given precautions recommendations for . We talked about vaccines in . Talked about care in detail. She is having genetic testing. She had a normal 12 week ultrasound. To begin routine care. Flowsheet Date 02/19/2024 Alex Score Blood Edema Fundus Height Fundus Units Glucose Ketones Leukocytes Nitrite Labor Signs Protein Cervic Dilation Cervic Effacement Cervic Station Type Weight in lbs Pre/Post Dialysis Refused BP Diastolic BP Location Tested BP Systolic BP Type Fetus Heart Rate Present Fetus Movement Comments Flowsheet Date 02/19/2024 Alex Score Blood Edema Fundus Height Fundus Units Glucose Ketones Leukocytes Nitrite Labor Signs Protein Cervic Dilation Cervic Effacement Cervic Station Type Weight in lbs Pre/Post Dialysis Refused Weight 163.340650729303 BP Diastolic BP Location Tested BP Systolic BP Type 91 148 Fetus Heart Rate Present Fetus Movement Comments problem visit, see note. Flowsheet Date 03/12/2024 Alex Score Blood Edema Fundus Height Fundus Units Glucose Ketones Leukocytes Nitrite Labor Signs Protein Cervic Dilation Cervic Effacement Cervic Station Type Weight in lbs Pre/Post Dialysis Refused Weight 168.410650315512 BP Diastolic BP Location Tested BP Systolic BP Type 69 151 Fetus Heart Rate Present A 155 Fetus Movement A No Comments Doing well, no further bleed ing. No cramping. No movement yet. Saw [facility], increased ASA to 2 per day. Will perform anatomy US at [facility]. Discussed diagnosis of cHTN, plan for 32 week testing and delivery between 38-40 weeks. Had labs done with [facility], plt 166, cr 0.6, ast/alt wnl, pc ratio 0.107. RTC 4 weeks. Flowsheet Date 04/07/2024 Alex Score Blood Edema Fundus Height Fundus Units Glucose Ketones Leukocytes Nitrite Labor Signs Protein Cervic Dilation Cervic Effacement Cervic Station neg trace none neg Type Weight in lbs Pre/Post Dialysis Refused 172.635262244948 BP Diastolic BP Location Tested BP Systolic BP Type 81 L arm 138 sitting Fetus Heart Rate Present A 155 Fetus Movement A Yes Comments Patient c/o of swelling in h ands and feet. Was seen by MFM for anatomy US, overall normal however incomplete. EFW 74%, breech presentation. Will repeat in 4 weeks with MFM. Patient reports hx of thrombocytopenia after medullary sponge kidney diagnosis; will trend plt count; discussed steroid course and parameters for epidural anesthesia. Will order EKG and ECHO for hx of chronic HTN per MFM recommendations. MFM also requesting hemoglobin electrophoresis, ordered today. RTC 4 weeks. Flowsheet Date 05/05/2024 Alex Score Blood Edema Fundus Height Fundus Units Glucose Ketones Leukocytes Nitrite Labor Signs Protein Cervic Dilation Cervic Effacement Cervic Station neg none none neg Type Weight in lbs Pre/Post Dialysis Refused 187.566899051323 BP Diastolic BP Location Tested BP Systolic BP Type 81 L arm 138 sitting Fetus Heart Rate Present A 150 Fetus Movement A Yes Comments Patient reports headache tod ay, has not taken anything yet today. No vision changes, chest pain, dyspnea, RUQ pain or epigastric pain. Saw MFM, did not start nifedipine due to normotension at home. Will check labs today due to headache. Discussed GCT and labs for next visit. EFW 77% on MFM US; echo scheduled for 05/15. Still need clearance of R foot, will repeat US with MFM. RTC 4 weeks. Flowsheet Date 06/03/2024 Alex Score Blood Edema Fundus Height Fundus Units Glucose Ketones Leukocytes Nitrite Labor Signs Protein Cervic Dilation Cervic Effacement Cervic Station neg none none trace Type Weight in lbs Pre/Post Dialysis Refused 193.34188128138 BP Diastolic BP Location Tested BP Systolic BP Type 88 L arm 136 sitting Fetus Heart Rate Present A 155 Fetus Movement A Yes Comments Patient c/o of a little spot ting yesterday along with some pains. Reports BH contractions. No LOF. Good movement. Was seen by MFM for right foot views, all normal. echo wnl as well. GCT and labs today. Discussed testing starting at 32 weeks. RTC 2 weeks. Flowsheet Date 06/16/2024 Alex Score Blood Edema Fundus Height Fundus Units Glucose Ketones Leukocytes Nitrite Labor Signs Protein Cervic Dilation Cervic Effacement Cervic Station neg none Type Weight in lbs Pre/Post Dialysis Refused Weight 198.596561458286 BP Diastolic BP Location Tested BP Systolic BP Type 84 L arm 133 sitting Fetus Heart Rate Present A 155 Fetus Movement A Yes Comments Patient c/o of [place] , and still feeling side affects from being sick. Having postnasal drip and cough. Good movement. No cramping or bleeding. Will start testing at 32 weeks for cHTN. Discussed 38 week induction on 08/12. Undecided on . RTc 2 weeks. Flowsheet Date 06/30/2024 Alex Score Blood Edema Fundus Height Fundus Units Glucose Ketones Leukocytes Nitrite Labor Signs Protein Cervic Dilation Cervic Effacement Cervic Station Type Weight in lbs Pre/Post Dialysis Refused BP Diastolic BP Location Tested BP Systolic BP Type Fetus Heart Rate Present Fetus Movement Comments Flowsheet Date 06/30/2024 Alex Score Blood Edema Fundus Height Fundus Units Glucose Ketones Leukocytes Nitrite Labor Signs Protein Cervic Dilation Cervic Effacement Cervic Station neg none Type Weight in lbs Pre/Post Dialysis Refused Weight 201.424574834551 BP Diastolic BP Location Tested BP Systolic BP Type 86 L arm 148 sitting Fetus Heart Rate Present Fetus Movement A Yes Comments Patient c/o of swelling in h ands and feet. Good movement. No cramping or bleeding. Desires Mirena IUD. BP mildly elevated. Asymptomatic. Will start testing today. Repeat labs on Sunday, plt count slightly low. RTC 1 week. Flowsheet Date 07/07/2024 Alex Score Blood Edema Fundus Height Fundus Units Glucose Ketones Leukocytes Nitrite Labor Signs Protein Cervic Dilation Cervic Effacement Cervic Station Type Weight in lbs Pre/Post Dialysis Refused Weight 204.251305997207 BP Diastolic BP Location Tested BP Systolic BP Type 104 161 96 150 Fetus Heart Rate Present Fetus Movement Comments Flowsheet Date 07/07/2024 Alex Score Blood Edema Fundus Height Fundus Units Glucose Ketones Leukocytes Nitrite Labor Signs Protein Cervic Dilation Cervic Effacement Cervic Station trace Type Weight in lbs Pre/Post Dialysis Refused 204.344384765170 BP Diastolic BP Location Tested BP Systolic BP Type 104 161 96 150 Fetus Heart Rate Present A 145 Fetus Movement A Yes Comments Patient is having pain, cont ractions, discharge and swelling. concerning blood pressures today. Patient has recorded many normal values at home just recently. To observe closely for superimposed preeclampsia. Labs obtained today. Flowsheet Date 07/10/2024 Alex Score Blood Edema Fundus Height Fundus Units Glucose Ketones Leukocytes Nitrite Labor Signs Protein Cervic Dilation Cervic Effacement Cervic Station Type Weight in lbs Pre/Post Dialysis Refused BP Diastolic BP Location Tested BP Systolic BP Type Fetus Heart Rate Present Fetus Movement Comments Flowsheet Date 07/15/2024 Alex Score Blood Edema Fundus Height Fundus Units Glucose Ketones Leukocytes Nitrite Labor Signs Protein Cervic Dilation Cervic Effacement Cervic Station Type Weight in lbs Pre/Post Dialysis Refused BP Diastolic BP Location Tested BP Systolic BP Type Fetus Heart Rate Present Fetus Movement Comments Flowsheet Date 07/15/2024 Alex Score Blood Edema Fundus Height Fundus Units Glucose Ketones Leukocytes Nitrite Labor Signs Protein Cervic Dilation Cervic Effacement Cervic Station Type Weight in lbs Pre/Post Dialysis Refused BP Diastolic BP Location Tested BP Systolic BP Type Fetus Heart Rate Present Fetus Movement Comments Flowsheet Date 07/15/2024 Alex Score Blood Edema Fundus Height Fundus Units Glucose Ketones Leukocytes Nitrite Labor Signs Protein Cervic Dilation Cervic Effacement Cervic Station neg none Type Weight in lbs Pre/Post Dialysis Refused Weight 259.714656281280 BP Diastolic BP Location Tested BP Systolic BP Type 101 L arm 143 sitting Fetus Heart Rate Present A 145 Fetus Movement A Yes Comments Patient c/o of headches and slight nausea for the past few days. Also reports RUQ pain, unclear if related to movement. Recommend evaluation at [place] due to escalating BPs, will try tylenol for headache. Discussed induction at 37-38 weeks pending further evaluation. BPP 04/17. RTC 1 week. Flowsheet Date 07/21/2024 Alex Score Blood Edema Fundus Height Fundus Units Glucose Ketones Leukocytes Nitrite Labor Signs Protein Cervic Dilation Cervic Effacement Cervic Station neg none Type Weight in lbs Pre/Post Dialysis Refused Weight 207.983051643036 BP Diastolic BP Location Tested BP Systolic BP Type 84 L arm 144 sitting Fetus Heart Rate Present A 150 Fetus Movement A Yes Comments Patient c/o of nausea for th e past 3-4 days. Along with contractions, states more intense. Having some headaches, intermittently improved by tylenol. Labwork wnl last week, will repeat today. Good movement. Has MFM appointment on Sunday, discussed pending MFM recommendations, would consider 37 week delivery due to escalating blood pressures. Preeclampsia precautions discussed. RTC 1 week. Flowsheet Date 07/29/2024 Alex Score Blood Edema Fundus Height Fundus Units Glucose Ketones Leukocytes Nitrite Labor Signs Protein Cervic Dilation Cervic Effacement Cervic Station Type Weight in lbs Pre/Post Dialysis Refused BP Diastolic BP Location Tested BP Systolic BP Type Fetus Heart Rate Present Fetus Movement Comments Flowsheet Date 07/29/2024 Alex Score Blood Edema Fundus Height Fundus Units Glucose Ketones Leukocytes Nitrite Labor Signs Protein Cervic Dilation Cervic Effacement Cervic Station Type Weight in lbs Pre/Post Dialysis Refused BP Diastolic BP Location Tested BP Systolic BP Type Fetus Heart Rate Present Fetus Movement Comments Flowsheet Date 07/29/2024 Alex Score Blood Edema Fundus Height Fundus Units Glucose Ketones Leukocytes Nitrite Labor Signs Protein Cervic Dilation Cervic Effacement Cervic Station neg trace Type Weight in lbs Pre/Post Dialysis Refused Weight 207.753264760480 BP Diastolic BP Location Tested BP Systolic BP Type 88 L arm 150 sitting Fetus Heart Rate Present Fetus Movement A Yes Comments Patient c/o of slight nausea for the past 2 weeks, along with contractions. Swelling in hands and feet. Menstrual History Last Menstrual Date Menses Monthly On Bcp Conception Prior Menses Frequency Hcg Plus Date Menarche Onset Age 0511/25/2023 false Delivery Information Delivery Date Delivery Type Labor Anesthesia Weeks Gestation Incision Type Labor Labor Length Hrs Delivered By Post Complications Tubal Sterilization Discharge Date Comments Discharge Information Feeding Method Contraceptive Method Maternal HG B and HCT Levels Ob Episode Information Episode Created Date Number of Fetuses Patient Bloodtype Patient rh Status Prepregnancy Weight lbs Domestic Partner Domestic Partner Phone Father Name [employer] Person Status 01/29/20 24 1 CLOSED Fetus Data First Name Last Name Admitted to NICU Weight (g) Sex Living Outcome Pediatric Complications Fetus ID Race Codes Race Delivery Type , [place] o[place] [id number] Bhanu Calculation Initial Bhanu Date Initial Exam Date Initial Exam Provider Initial Ultrasound Date Last Menstrual Period Date Ultra Sound Weeks Gestation 0 Eighteen To Twenty Week Bhanu Update Ultra Sound Date Fundal Height At Umbil Quickening Date Ultra Sound Latest Weeks Gestation Final Bhanu Confirmed By Final Bhanu Confirmed Date Final Bhanu Date Ultra Sound Latest Days Gestation 0 0 Menstrual History Last Menstrual Date Menses Monthly On Bcp Conception Prior Menses Frequency Hcg Plus Date Menarche Onset Age Delivery Information Delivery Date Delivery Type Labor Anesthesia Weeks Gestation Incision Type Labor Labor Length Hrs Delivered By Post Complications Tubal Sterilization Discharge Date Comments 1 Discharge Information Feeding Method Contraceptive Method Maternal HG B and HCT Levels
--- OUTSIDE RECORDS SUMMARY | 2024-08-01 00:28 | XMS_ITS | Continuity of Care Document ---
Author Organization [facility] [place] Address [address] [place] [address] Assessment No assessment recorded. Plan of Treatment [...] Not available Not available Not available Lab unliste d lab - CMP/CBC /uric acid 2024 025 [facility] (Lab), [address], [place], [address], 07/30/2024 05:16:25 Referral None recorde d. Procedures None recorde d. Surgeries None recorde d. Imaging None recorde d. Medication Orders metoclo pramide 10 mg tablet 2024 025 [id number], [address], [place], [place], [id number], 07/29/2024 16:23:16 Patient TargetsNo targets recorded. Patient InstructionsNo instructions recorded. Reason for Referral None Reported. Results Created Date Observation Date Name Description Value Unit Range Abnormal Flag Note LastModifiedBy Organization Detail LastModifiedTime 02/11/20 24 02/11/2024 US, tian tric, nucha l trans lucen cy No observ ation record ed. [email or web address] [place] [address], [place], [address], 02/11/2024 18:34:31 02/11/20 24 02/11/2024 US, tian talley, 1st trime ster No observ ation record ed. [email or web address] [place] [address], [place], [address], 02/11/2024 18:34:42 02/11/20 24 02/11/2024 US, obstmario talley, follo w-up No observ ation record ed. [email or web address] [address] [facility], [place], [address], 02/12/2024 09:38:46 02/19/20 24 02/19/2024 US, obste tric, limit ed No observ ation record ed. [email or web address] [place] [address], [place], [address], 02/19/2024 18:02:56 02/19/20 24 02/19/2024 US, obste tric, limit ed No observ ation record ed. [email or web address] [address], [place], [address], 02/20/2024 09:54:38 03/05/20 24 03/05/2024 US, obste tric No observ ation record ed. [email or web address] [facility] [address] [place] [address], [address], 03/06/2024 14:14:37 03/05/20 24 03/05/2024 US, obste tric, follo w-up No observ ation record ed. [facility] [address], [address], 03/06/2024 10:49:26 04/02/20 24 04/02/2024 US, obste tric, follo w-up No observ ation record ed. [email or web address] [facility] [address], [address], 04/02/2024 16:42:56 04/02/2004/02/2024 US, obste tric, follo w-up No observ ation record ed. [email or web address] [facility] [address] [place] [address], [address], 04/02/2024 16:45:06 04/17/2004/16/2024 debby carrizales am No observ ation record ed. [facility] (P[facility]) [address], [place], [address], 04/22/2024 10:33:05 04/30/2004/30/2024 US, obste tric, follo w-up No observ ation record ed. [facility] [address], [address], 05/01/2024 15:02:58 05/02/20 24 04/30/2024 US, obste tric, follo w-up No observ ation record ed. [email or web address] [facility] [address] [place], [address], 05/05/2024 10:18:08 05/27/20 24 elect rafael carrizales am No observ ation record ed. [facility] [address], [place], [address], 05/28/2024 11:46:13 05/28/20 24 05/28/2024 US, obste tric, follo w-up No observ ation record ed. [facility] [address], [place], [address], 05/29/2024 09:32:42 05/28/20 24 05/28/2024 US, obste tric, follo w-up No observ ation record ed. [email or web address] [facility] [address] [place], [address], 05/29/2024 09:41:17 06/25/20 24 06/25/2024 US, obste tric, follo w-up No observ ation record ed. [facility] [address] [place] [address], [address], 06/26/2024 13:36:23 06/27/20 24 06/25/2024 US, obste tric, follo w-up No observ ation record ed. [email or web address] [facility] [address] [place] [address], [address], 07/11/2024 11:21:50 06/30/20 24 06/30/2024 non-s tress test No observ ation record ed. [email or web address] [place], [place], [address], 06/30/2024 16:21:35 07/07/20 24 07/07/2024 non-s tress test No observ ation record ed. [place] [address], [place], [address], 07/07/2024 21:17:27 07/10/19 25 07/10/2024 US, obste tric, bioph ysica l profi le No observ ation record ed. [email or web address] [place] [address], [place], [address], 07/10/2024 18:24:47 07/10/19 25 07/10/2024 US, obste tric, bioph ysica l profi le No observ ation record ed. [email or web address] [address], [place], [address], 07/10/2024 21:55:58 07/15/19 25 07/07/2024 non-s tress test No observ ation record ed. [email or web address] [place] [address], [place], [address], 07/15/2024 11:35:49 07/15/19 25 07/15/2024 US, obste tric, bioph ysica l profi le + non-s tress test No observ ation record ed. [email or web address] [place] [address], [place], [address], 07/15/2024 16:35:24 07/15/19 25 07/15/2024 US, obste tric, bioph ysica l profi le + non-s tress test No observ ation record ed. [email or web address] [address], [place], [address], 07/15/2024 21:29:07 07/15/19 25 07/15/2024 non-s tress test No observ ation record ed. [email or web address] [place] [address], [place], [address], 07/15/2024 16:53:50 07/23/19 25 07/23/2024 US, obste tric, follo w-up No observ ation record ed. [email or web address] [facility] [address], [place], [address], 07/25/2024 20:57:14 07/25/19 25 07/23/2024 US, obste tric, follo w-up No observ ation record ed. [email or web address] [facility] [address], [place], [address], 07/29/2024 07:32:34 07/29/19 25 07/29/2024 US, obste tric, bioph ysica l profi le + non-s tress test No observ ation record ed. [email or web address] [place] [address], [place], [address], 07/29/2024 17:42:55 07/29/19 25 07/29/2024 US, obste tric, follo w-up No observ ation record ed. [place] [address], [place], [address], 07/30/2024 09:24:07 07/29/19 25 07/29/2024 non-s tress test No observ ation record ed. [email or web address] [place] [address], [place], [address], 07/29/2024 16:39:39 Result Notes None recorded. Problems Name Problem SNOMED Code Status Onset Date Resolution Date Notes Provider Name and Address Organization Details Recorded Time 93845713 Active 2023 Chantel alcaraz [place] - [facility] 16:12:34 Kidney disease 15241454 Active medullary sponge kidney, seen by Brandi NICOLE MD [address], [place], [address], [facility] 4 12:07:32 Complicat ed migraine 736740424 Active Anthony Perkins MD [address], [place], [address], [facility] 4 16:25:18 Hypertens camron disorder 94308061 Active no meds - 38wk delivery, 32wk [facility]ata l [facility] 4 14:45:34 Hypertens camron disorder 14237735 Active no meds - 38wk delivery, 32wk antentata l [facility], [facility] 4 14:45:34 Hypertens camron disorder 84782822 Active no meds [facility], [facility] 4 14:45:34 Kidney disease 36384056 Active medullary sponge kidney, seen by [facility] ARUN NICOLE MD [address], [place], [address], [facility] 4 12:07:37 Advanced maternal age 753843525 Active [facility] 4 14:42:27 Cardiac arrhythmi a 272161533 Active 2023 [facility] rec EKG- normal, maternal ECHO, cardiolog y referral if needed ARUN NICOLE MD [address], [place], [address], [facility] 4 14:24:21 Breech presentat ion 7238399 Active 2023 ARUN NICOLE MD [address], [place], [address], [facility] 4 00:46:39 Problem Notes None recorded. Procedures Surgical History Date Name Laterality Status Provider Name and Address Organization Details Recorded Time 4 Date of Last Pap Smear completed Chantelchristine Nguyen [facility] 02/11/2024 16:12:10 6 extraction of wisdom tooth [facility] 02/12/2024 18:23:38 Imaging Results None recorded. Procedure Notes None recorded. Medical Equipment None Reported. Allergies Allergen ID Allergen Name Allergen Category Reaction Reaction Severity Criticality Documentation Date Start Date Code Code System Note Provider Name and Address Organization Details Recorded Time 92549 Hayfever medicatio n Not available Not available Not available 01/29/2024 63743 UNK Bita Reyes [facility] 4 14:29:27 27932 chlorphen iramine / phenylpro panolamin e medicatio n eye swelling moderate Not available 02/11/2024 88755 4 [facility] 16:04:13 Medications Name Sig Start Date Stop [...] Updated DateTime 07/29/2024 167.64 cm 33.4 kg/m2 73430.62 g 150 mm[Hg] 88 mm[Hg] Joya Coburn [facility] 5 16:08:14 Social History Question Answer Notes LastModified by Organizat ion Details LastModified Time Tobacco Smoking Status Never [facility]oker [facility] 01/29/2024 14:38:33 What Is Your Level Of Alcohol Consumption? None [email or web address] Information not available 02/11/2024 Are You Blind [...] Or The Highest Degree You Have Received? 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 [id number] [email or web address] Information not available 02/11/2024 Do You Use [...] 01/29/2024 What is your exercise level? Heavy [email or web address] Information not available 02/11/2024 Mental Status None recorded. Family History Relationship Description Onset Age of this Age Resolved Age Notes LastModified by Organization Details LastModified Time Maternal Grandfather Heart disease Not available 02/10 16:04:14 Paternal Grandfather Heart disease [email or web address] Not available 02/10 16:04:14 Father Heart disease [email or web address] Not available 02/10 16:04:14 Medical History Condition Response Allergies (Food, seasonal, environmental ) N Other N Blood Transfusion N Breast Cancer N Drug/Latex Allergies/Reactions N Dermatologic Disorders N Lung Disease N Defects or Inherited Disease N Breast Problem N Gestational Diabetes N Hematologic disorders N Anesthesia Complications N History of STI N Deep Vein Thrombosis N Polycystic ovary syndrome N Anxiety Disorder N Autoimmune disease N Arthritis N Polyps N Infertility N Acid Reflux (GERD) N History of abnormal pap N Cancer N Varicosities N Stroke N Neurologic/Epilepsy N Endometriosis N High Cholesterol N Fibromyalgia N Headaches Y Kidney Disease Y Heart Problems N Thyroid Problems N Kidney or Bladder Problems Y GI Problems N Eating Disorder N Anemia [...] SNOMED-CT Code Diagnosis ICD10 Code Diagnosis Note [id number] Joya Coburn [place] [address] [address] 06/30/2024 14:26:58 06/30/2024 16:33:56 Chronic hypertension complicating AND/OR reason for care during 37681303 O16.9 [id number] ARUN NICOLE MD [place] [address],[place] [address] 06/30/2024 14:27:26 06/30/2024 15:59:05 Advanced maternal age 291764981 O09.529 Kidney disease 91690636 N08 Breech presentation 6096 002 O32.1XX9 Gestation period, 31 weeks 99668753 Z3A.31 Chronic hy pertension complicating AND/OR reason for care during 78102151 O16.9 [id number] Chantel Nguyen [place] [address],[place] [address] 07/07/2024 13:54:09 07/08/2024 06:10:25 -induced hypertension 48380464 O13.9 [id number] Anthony Perkins MD [place] [address],[place] [address] 07/07/2024 13:54:37 07/07/2024 16:00:27 Routine care 477153911 Z34.90 O26.891 [id number] Gloria Moreno [place] [address],[place] [address] 07/10/2024 16:54:17 07/10/2024 17:41:16 Advanced maternal age 569867569 O09.523 O16.3 O09.293 O99.893 Z3A.33 [id number] Joya Coburn [place] [address],[place] [address] 07/15/2024 15:23:11 07/15/2024 16:56:57 Chronic hypertension complicating AND/OR reason for care during 22868612 O16.9 [id number] [facility] [address],[place] [address] 07/15/2024 15:23:25 07/15/2024 16:26:06 Advanced maternal age 209761525 O09.523 O16.3 O09.293 O99.893 Z3A.34 [id number] ARUN NICOLE MD [place] [address],[place] [address] 07/15/2024 16:01:40 07/23/2024 01:08:03 Chronic hypertension complicating AND/OR reason for care during 30716050 O16.9 - intermitte nt headaches, otherwise asymptomat ic- BP mild range- labs wnl 1 week ago, repeat today- return precaution s reviewed Advanced m aternal age 967622101 O09.529 Kidney disease 46323466 N08 Gestation period, 35 weeks 15178094 Z3A.35 [id number] ARUN NICOLE MD [place] [address],[place] [address] 07/21/2024 16:14:55 07/23/2024 06:39:16 Chronic hypertension complicating AND/OR reason for care during 42546596 O16.9 - intermitte nt headaches, otherwise asymptomat ic- BP mild range- labs wnl 1 week ago, repeat today- return precaution s reviewed Advanced m aternal age 016490363 O09.529 Kidney disease 51642650 N08 Gestation period, 34 weeks 67931125 Z3A.34 [id number] [facility] [address],[place] [address] 07/29/2024 14:48:28 07/29/2024 15:34:11 Advanced maternal age 177292170 O09.523 O16.3 O09.293 O99.893 Z3A.36 [id number] Joya Coburn [place] [address] [address] 07/29/2024 14:48:41 07/29/2024 16:43:29 Chronic hypertension complicating AND/OR reason for care during 28070696 O16.9 - intermitte nt headaches, otherwise asymptomat ic- BP mild range- labs wnl 1 week ago, repeat today- return precaution s reviewed [id number] ARUN NICOLE MD [place] [address] [address] 07/29/2024 14:49:03 07/29/2024 16:46:28 Headache 46560584 R51.9 Chronic hy pertension complicating AND/OR reason for care during 71619384 O16.9 - intermitte nt headaches, otherwise asymptomat ic- BP mild range- labs wnl 1 week ago, repeat today- return precaution s reviewed Mild pre-eclampsia 33496 007 O14.03 Advanced m aternal age 899908942 O09.529 Kidney disease 54903041 N08 Gestation period, 36 weeks 06314235 Z3A.36 Health Concerns Section Related Observation LastModified by Organization Detai ls LastModified Time None Recorded Concern Status LastModified by Organization Details LastModified Time None Recorded Payers Encounter Date Sequence Insurance Name Policy Number Policy Dawn Covered Member ID Dawn Member ID Guarantor Name 07/29/2024 1 [place] [id number] Miguelina Diaz [id number] Miguelina Diaz OBGyn Episode Ob Episode Information Episode Created Date Number of Fetuses Patient Bloodtype Patient rh Status Prepregnancy Weight lbs Domestic Partner Domestic Partner Phone Father Name Electrical Laboratory Technician Status 02/11/20 24 1 A Positive 156 Bulmaro OPEN Fetus Data First Name Last Name Admitted to NICU Weight (g) Sex Living Outcome Pediatric Complications Fetus ID Race Codes Race Delivery Type [id number] Problems Problem Notes [facility] 05/15 echo, 05/28 9 am 07/23/24 US, NST & MACHINE HEEL SEAT [employer]TER office visit Recommendations: prompt eval with s/s UTI or kidney stones, establish with nephrology for follow up(mfm sent), nifedipine 30mg AM, LDASA 2tabs evening, home BP monitoring, send logs weekly, 1x/week BPP/NST/ALICIA at 32wks, serial growth q4wks, delivery recommendations (04/30 consult note), EKG, maternal echo if CHTN for 10+ years. echo scheduled for 05/15/24, neurology consult orders for migraines, follow up eye exam needed. Problem Name Start Date End Date Resolution Snomed Code Not e Hypertensive disorder 90665479 no meds - 38wk delivery, 32wk antentatal testing weekly Complicated migraine 984535857 Kidney disease 36467874 fariba stevens sponge kidney, seen by [facility] Cardiac arrhythmia 04/03/2024 850157924 [facility] rec EKG- normal, maternal ECHO, cardiology referral if needed Breech presentation 04/07/2024 6293858 Advanced maternal age 361458889 Bhanu Calculation Initial Bhanu Date Initial Exam Date Initial Exam Provider Initial Ultrasound Date Last Menstrual Period Date Ultra Sound Weeks Gestation 08/26/2024 01/29/2024 [email or web address] 01/29/2024 11/25/2023 10 Eighteen To Twenty Week [...] Weight in lbs Pre/Post Dialysis Refused Weight 160.114268502914 BP Diastolic BP Location Tested BP Systolic [...] Weight in lbs Pre/Post Dialysis Refused Weight 163.799876376598 BP Diastolic BP Location Tested BP Systolic BP Type 91 148 Fetus Heart Rate Present Fetus Movement Comments problem visit, see note. Flowsheet Date 03/12/2024 Alex Score Blood Edema Fundus Height Fundus Units Glucose Ketones Leukocytes Nitrite Labor Signs Protein Cervic Dilation Cervic Effacement Cervic Station Type Weight in lbs Pre/Post Dialysis Refused Weight 168.319925015790 BP Diastolic BP Location Tested BP Systolic BP Type 69 151 Fetus Heart Rate Present A 155 Fetus Movement A No Comments Doing well, no further bleed ing. No cramping. No movement yet. Saw [facility], increased ASA to 2 per day. Will perform anatomy US at [facility]. Discussed diagnosis of cHTN, plan [...] Type Weight in lbs Pre/Post Dialysis Refused 172.797143432771 BP Diastolic BP Location Tested BP Systolic BP Type 81 L arm 138 sitting Fetus Heart Rate Present A 155 Fetus Movement A Yes Comments Patient c/o of swelling in h ands and feet. Was seen by [facility] for anatomy US, overall normal however incomplete. EFW 74%, breech presentation. Will repeat in 4 weeks with M. Patient reports hx of thrombocytopenia after medullary sponge kidney diagnosis; will trend plt count; discussed steroid course and parameters for epidural anesthesia. Will order EKG and ECHO for hx of chronic HTN per MFM recommendations. M also requesting hemoglobin electrophoresis, ordered today. RTC 4 weeks. Flowsheet Date 05/05/2024 Alex Score Blood Edema Fundus Height Fundus Units Glucose Ketones Leukocytes Nitrite Labor Signs Protein Cervic Dilation Cervic Effacement Cervic Station neg none none neg Type Weight in lbs Pre/Post Dialysis Refused 187.010676508002 BP Diastolic BP Location Tested BP Systolic [...] labs for next visit. EFW 77% on M US; echo scheduled for 05/15. Still need clearance of R foot, will repeat US with M. RTC 4 weeks. Flowsheet Date 06/03/2024 Alex Score Blood Edema Fundus Height Fundus Units Glucose Ketones Leukocytes Nitrite Labor Signs Protein Cervic Dilation Cervic Effacement Cervic Station neg none none trace Type Weight in lbs Pre/Post Dialysis Refused 193.57012612222 BP Diastolic BP Location Tested BP Systolic BP Type 88 L arm 136 sitting Fetus Heart Rate Present A 155 Fetus Movement A Yes Comments Patient c/o of a little spot ting yesterday along with some pains. Reports BH contractions. No LOF. Good movement. Was seen by [facility] for right foot views, all normal. echo wnl as well. GCT and labs today. Discussed testing starting at 32 weeks. RTC 2 weeks. Flowsheet Date 06/16/2024 Alex Score Blood Edema Fundus Height Fundus Units Glucose Ketones Leukocytes Nitrite Labor Signs Protein Cervic Dilation Cervic Effacement Cervic Station neg none Type Weight in lbs Pre/Post Dialysis Refused Weight 198.586109559513 BP Diastolic BP Location Tested BP Systolic BP Type 84 L arm 133 sitting Fetus Heart Rate Present A 155 Fetus Movement A Yes Comments Patient c/o of Wetzel Cervantes , and still feeling side affects [...] Weight in lbs Pre/Post Dialysis Refused Weight 201.192834563152 BP Diastolic BP Location Tested BP Systolic [...] Weight in lbs Pre/Post Dialysis Refused Weight 204.114692841562 BP Diastolic BP Location Tested BP Systolic BP Type 104 161 96 150 Fetus Heart Rate Present Fetus Movement Comments Flowsheet Date 07/07/2024 Alex Score Blood Edema Fundus Height Fundus Units Glucose Ketones Leukocytes Nitrite Labor Signs Protein Cervic Dilation Cervic Effacement Cervic Station trace Type Weight in lbs Pre/Post Dialysis Refused 204.766909545127 BP Diastolic BP Location Tested BP Systolic [...] Weight in lbs Pre/Post Dialysis Refused Weight 259.390791509711 BP Diastolic BP Location Tested BP Systolic BP Type 101 L arm 143 sitting Fetus Heart Rate Present A 145 Fetus Movement A Yes Comments Patient c/o of headches and slight nausea for the past few days. Also reports RUQ pain, unclear if related to movement. Recommend evaluation at [place] due to escalating BPs, will try tylenol for headache. Discussed induction at 37-38 weeks pending further evaluation. BPP 04/17. RTC 1 week. Flowsheet Date 07/21/2024 Alex Score Blood Edema Fundus Height Fundus Units Glucose Ketones Leukocytes Nitrite Labor Signs Protein Cervic Dilation Cervic Effacement Cervic Station neg none Type Weight in lbs Pre/Post Dialysis Refused Weight 207.287021633685 BP Diastolic BP Location Tested BP Systolic [...] Weight in lbs Pre/Post Dialysis Refused Weight 207.233618240028 BP Diastolic BP Location Tested BP Systolic [...]
--- OUTSIDE RECORDS SUMMARY | 2024-08-01 00:28 | XMS_ITS | Continuity of Care Document ---
Author Organization [facility] [place] Address [address] [place] [address] Assessment No assessment recorded. Plan of Treatment [...] Not available Not available Not available Lab None recorde d. Referral None recorde d. Procedures None recorde d. Surgeries None recorde d. Imaging non-str ess test 2024 025 [email or web address] [place], [address], [address], [place], [address], 07/30/2024 04:01:22 Medication Orders None recorde d. Patient TargetsNo targets recorded. Patient InstructionsNo instructions recorded. Reason for Referral None Reported. Results Created Date Observation Date Name Description Value Unit Range Abnormal Flag Note LastModifiedBy Organization Detail LastModifiedTime 02/11/20 24 02/11/2024 US, obste tric, nucha l trans lucen cy No observ ation record ed. [email or web address] [place] [address], [place], [address], 02/11/2024 18:34:31 02/11/20 24 02/11/2024 US, tian talley, 1st trime ster No observ ation record ed. [email or web address] [place] [address], [place], [address], 02/11/2024 18:34:42 02/11/20 24 02/11/2024 , tian tric, follo w-up No observ ation record ed. [email or web address] [place] [address], [place], [address], 02/12/2024 09:38:46 02/19/20 24 02/19/2024 , obste tric, limit ed No observ ation record ed. [email or web address] [place] [address], [place], [address], 02/19/2024 18:02:56 02/19/20 24 02/19/2024 US, obste tric, limit ed No observ ation record ed. [email or web address] [place] [address], [place], [address], 02/20/2024 09:54:38 03/05/20 24 03/05/2024 US, obste tric No observ ation record ed. [email or web address] [facility] [address] [place] [address], [address], 03/06/2024 14:14:37 03/05/20 24 03/05/2024 US, obste tric, follo w-up No observ ation record ed. [facility] [address], [address], 03/06/2024 10:49:26 04/02/2004/02/2024 US, obste tric, follo w-up No observ ation record ed. [email or web address] [facility] [address], [address], 04/02/2024 16:42:56 04/02/2004/02/2024 US, obste tric, follo w-up No observ ation record ed. [email or web address] [facility] [address], [address], 04/02/2024 16:45:06 04/17/2004/16/2024 elect rocchelo pantojagr am No observ ation record ed. [facility] ([facility]) [address] [place] [address] [address], [place], [address], 04/22/2024 10:33:05 04/30/2004/30/2024 US, obste tric, follo w-up No observ ation record ed. [facility] [address], [address], 05/01/2024 15:02:58 05/02/2004/30/2024 US, obste tric, follo w-up No observ ation record ed. [email or web address] [facility] [address], [address], 05/05/2024 10:18:08 05/27/20 elect rocar diogr am No observ ation record ed. [facility] [address], [place], [address], 05/28/2024 11:46:13 05/28/20 24 05/28/2024 US, obste tric, follo w-up No observ ation record ed. [email or web address], [place], [address], 05/29/2024 09:32:42 05/28/20 24 05/28/2024 US, obste tric, follo w-up No observ ation record ed. [email or web address] [facility] [address] [place], [address], 05/29/2024 09:41:17 06/25/20 24 06/25/2024 US, obste tric, follo w-up No observ ation record ed. [email or web address] [facility] [address] [place], [address], 06/26/2024 13:36:23 06/27/20 24 06/25/2024 US, obste tric, follo w-up No observ ation record ed. [facility] [address] [place] [address], [address], 07/11/2024 11:21:50 06/30/20 24 06/30/2024 non-s tress test No observ ation record ed. [email or web address] [place] [address], [place], [address], 06/30/2024 16:21:35 07/07/20 24 07/07/2024 non-s tress test No observ ation record ed. [email or web address] [place] [address], [place], [address], 07/07/2024 21:17:27 07/10/19 25 07/10/2024 US, obste tric, bioph ysica l profi le No observ ation record ed. [email or web address] [place] [address], [place], [address], 07/10/2024 18:24:47 07/10/19 25 07/10/2024 US, obste tric, bioph ysica l profi le No observ ation record ed. [email or web address] [place] [address], [place], [address], 07/10/2024 21:55:58 07/15/19 25 07/07/2024 non-s tress test No observ ation record ed. [email or web address] [place] [address], [place], [address], 07/15/2024 11:35:49 07/15/19 25 07/15/2024 US, obste tric, bioph ysica l profi le + non-s tress test No observ ation record ed. [email or web address] [place] [address], [place], [address], 07/15/2024 16:35:24 07/15/19 25 07/15/2024 US, obste tric, bioph ysica l profi le + non-s tress test No observ ation record ed. [email or web address] [place] [address], [place], [address], 07/15/2024 21:29:07 07/15/19 25 07/15/2024 non-s tress test No observ ation record ed. [email or web address] [place] [address], [place], [address], 07/15/2024 16:53:50 07/23/19 25 07/23/2024 US, obste tric, follo w-up No observ ation record ed. [email or web address] [facility] [address], [place], [address], 07/25/2024 20:57:14 07/25/19 25 07/23/2024 US, obste tric, follo w-up No observ ation record ed. [facility] [address], [place], [address], 07/29/2024 07:32:34 07/29/19 25 07/29/2024 US, obste tric, bioph ysica l profi le + non-s tress test No observ ation record ed. [facility] [address], [place], [address], 07/29/2024 17:42:55 07/29/19 25 07/29/2024 US, obste tric, follo w-up No observ ation record ed. [email or web address] [place] [address], [place], [address], 07/30/2024 09:24:07 07/29/19 25 07/29/2024 non-s tress test No observ ation record ed. [email or web address] [place] [address], [place], [address], 07/29/2024 16:39:39 Result Notes None recorded. Problems Name Problem SNOMED Code Status Onset Date Resolution Date Notes Provider Name and Address Organization Details Recorded Time 64836411 Active 2023 Chantel Nguyen [facility], [facility] 4 16:12:34 Kidney disease 64414940 Active medullary sponge kidney, seen by MFM ARUN NICOLE MD [address], [place], [address], [facility] 4 12:07:32 Complicat ed migraine 700593848 Active Anthony Perkins MD [address], [place], [address], [facility] 4 16:25:18 Hypertens camron disorder 08128871 Active no meds - 38wk delivery, 32wk antentata l testing weekly Lynnette Renee null, [facility] 4 14:45:34 Hypertens camron disorder 43135283 Active no meds - 38wk delivery, 32wk antentata l testing weekly Lynnette Renee [facility], [facility] 4 14:45:34 Hypertens camron disorder 01673017 Active no meds Lynnette Renee [facility], [facility] 4 14:45:34 Kidney disease 37625125 Active medullary sponge kidney, seen by MFM ARUN NICOLE MD [address], [place], [address], [facility] 4 12:07:37 Advanced maternal age 411836068 [facility], [facility] 4 14:42:27 Cardiac arrhythmi a 002852213 Active 2023 [facility] rec EKG- normal, maternal ECHO, cardiolog y referral if needed ARUN NICOLE MD [address], [place], [address], [facility] 4 14:24:21 Breech presentat ion 1106452 Active 2023 ARUN NICOLE MD [address], [place], [address], [facility] 4 00:46:39 Problem Notes None recorded. Procedures Surgical History Date Name Laterality Status Provider Name and Address Organization Details Recorded Time 4 Date of Last Pap Smear completed Chantel Nguyen [facility] 02/11/2024 16:12:10 6 extraction of wisdom tooth completed Chantel Nguyen [facility] 02/12/2024 18:23:38 Imaging Results Imaging Date Name Status LastModified by Organiz ation Details LastModified Time 07/29/2024 non-stress test completed [email or web address] [place] [address], [place], [address], 07/29/2024 16:39:39 Procedure Notes None recorded. Medical Equipment None Reported. Allergies Allergen ID Allergen Name Allergen Category Reaction Reaction Severity Criticality Documentation Date Start Date Code Code System Note Provider Name and Address Organization Details Recorded Time 90221 Hayfever medicatio n Not available Not available Not available 01/29/2024 88306 UNK Bita alcaraz [facility] 14:29:27 80897 chlorphen iramine / phenylpro panolamin e medicatio n eye swelling moderate Not available 02/11/2024 48721 4 RxNorm Chantel alcaraz, [facility] 4 16:04:13 Medications Name Sig Start [...] Updated DateTime 07/29/2024 167.64 cm 33.4 kg/m2 05299.62 g 150 mm[Hg] 88 mm[Hg] Joya Coburn [facility] 5 16:08:14 Social History Question Answer Notes LastModified by Organizat ion Details LastModified Time Tobacco Smoking Status Never Smoker Bita Amy [facility] 01/29/2024 14:38:33 What Is Your Level Of Alcohol Consumption? None [email or web address] Information not available 02/11/2024 Are You Blind [...] Or The Highest Degree You Have Received? 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 [id number] [email or web address] Information not available 02/11/2024 Do You Use [...] 01/29/2024 What is your exercise level? Heavy Information not available 02/11/2024 Mental Status None recorded. Family History Relationship Description Onset Age of this Age Resolved Age Notes LastModified by Organization Details LastModified Time Maternal Grandfather Heart disease [email or web address] Not available 02/10 16:04:14 Paternal Grandfather Heart disease [email or web address] Not available 02/10 16:04:14 Father Heart disease [email or web address] Not available 02/10 16:04:14 Medical History Condition [...] SNOMED-CT Code Diagnosis ICD10 Code Diagnosis Note [id number] Joya Coburn [place] [address] [address] 06/30/2024 14:26:58 06/30/2024 16:33:56 Chronic hypertension complicating AND/OR reason for care during 12575142 O16.9 [id number] ARUN NICOLE MD [place] [address] [address] 06/30/2024 14:27:26 06/30/2024 15:59:05 Advanced maternal age 488167068 O09.529 Kidney disease 01688767 N08 Breech presentation 6096 002 O32.1XX9 Gestation period, 31 weeks 42576268 Z3A.31 Chronic hy pertension complicating AND/OR reason for care during 80848166 O16.9 [id number] Chantel Nguyen [place] [address] [place] [address] 07/07/2024 13:54:09 07/08/2024 06:10:25 -induced hypertension 88016340 O13.9 [id number] Anthony Perkins MD [place] [address] [place] [address] 07/07/2024 13:54:37 07/07/2024 16:00:27 Routine care 273746304 Z34.90 O26.891 [id number] Gloria Moreno [place] [address] [place] [address] 07/10/2024 16:54:17 07/10/2024 17:41:16 Advanced maternal age 411490693 O09.523 O16.3 O09.293 O99.893 Z3A.33 [id number] Joya Coburn [place] [address],[place] [address] 07/15/2024 15:23:11 07/15/2024 16:56:57 Chronic hypertension complicating AND/OR reason for care during 77986101 O16.9 [id number] [facility] [address],[place] [address] 07/15/2024 15:23:25 07/15/2024 16:26:06 Advanced maternal age 340093387 O09.523 O16.3 O09.293 O99.893 Z3A.34 [id number] ARUN NICOLE MD [place] [address],[place] [address] 07/15/2024 16:01:40 07/23/2024 01:08:03 Chronic hypertension complicating AND/OR reason for care during 10120283 O16.9 - intermitte nt headaches, otherwise asymptomat ic- BP mild range- labs wnl 1 week ago, repeat today- return precaution s reviewed Advanced m aternal age 662061796 O09.529 Kidney disease 28245076 N08 Gestation period, 35 weeks 13203277 Z3A.35 [id number] ARUN NICOLE MD [place] [address],[place] [address] 07/21/2024 16:14:55 07/23/2024 06:39:16 Chronic hypertension complicating AND/OR reason for care during 55631942 O16.9 - intermitte nt headaches, otherwise asymptomat ic- BP mild range- labs wnl 1 week ago, repeat today- return precaution s reviewed Advanced m aternal age 627759702 O09.529 Kidney disease 65741708 N08 Gestation period, 34 weeks 67475242 Z3A.34 [id number] Gloria [facility] [address],[place] [address] 07/29/2024 14:48:28 07/29/2024 15:34:11 Advanced maternal age 560395695 O09.523 O16.3 O09.293 O99.893 Z3A.36 [id number] Joya Irish [place] [address] [address] 07/29/2024 14:48:41 07/29/2024 16:43:29 Chronic hypertension complicating AND/OR reason for care during 85796217 O16.9 - intermitte nt headaches, otherwise asymptomat ic- BP mild range- labs wnl 1 week ago, repeat today- return precaution s reviewed [id number] ARUN NICOLE MD [place] [address] [address] 07/29/2024 14:49:03 07/29/2024 16:46:28 Headache 10953717 R51.9 Chronic hy pertension complicating AND/OR reason for care during 41191122 O16.9 - intermitte nt headaches, otherwise asymptomat ic- BP mild range- labs wnl 1 week ago, repeat today- return precaution s reviewed Mild pre-eclampsia 19781 007 O14.03 Advanced m aternal age 853159889 O09.529 Kidney disease 60421305 N08 Gestation period, 36 weeks 54539356 Z3A.36 Health Concerns Section Related Observation LastModified by Organization Detai ls LastModified Time None Recorded Concern Status LastModified by Organization Details LastModified Time None Recorded Payers Encounter Date Sequence Insurance Name Policy Number Policy Dawn Covered Member ID Dawn Member ID Guarantor Name 07/29/2024 1 [place] [id number] Miguelina Diaz [id number] Miguelina Diaz OBGyn Episode Ob Episode Information Episode Created Date Number of Fetuses Patient Bloodtype Patient rh Status Prepregnancy Weight lbs Domestic Partner Domestic Partner Phone Father Name [employer] Operator Status 02/11/20 24 1 A Positive 156 Bulmaro OPEN Fetus Data First Name Last Name Admitted to NICU Weight (g) Sex Living Outcome Pediatric Complications Fetus ID Race Codes Race Delivery Type [id number] Problems Problem Notes [facility] 05/15 echo, 05/28 9 am 1/15/25 US, NST & [employer] office visit Recommendations: prompt eval with s/s UTI or kidney stones, establish with nephrology for follow up(m sent), nifedipine 30mg AM, LDASA 2tabs evening, home BP monitoring, send logs weekly, 1x/week BPP/NST/ALICIA at 32wks, serial growth q4wks, delivery recommendations (04/30 consult note), EKG, maternal echo if CHTN for 10+ years. echo scheduled for 05/15/24, neurology consult orders for migraines, follow up eye exam needed. Problem Name Start Date End Date Resolution Snomed Code Not e Hypertensive disorder 70495285 no meds - 38wk delivery, 32wk antentatal testing weekly Complicated migraine 705140013 Kidney disease 84073787 medul hilda sponge kidney, seen by [facility] Cardiac arrhythmia 04/03/2024 [id number] [facility] rec EKG- normal, maternal ECHO, cardiology referral if needed Breech presentation 04/07/2024 1074094 Advanced maternal age 223261726 Bhanu Calculation Initial Bhanu Date Initial Exam Date Initial Exam Provider Initial Ultrasound Date Last Menstrual Period Date Ultra Sound Weeks Gestation 08/26/2024 01/29/2024 [email or web address] 01/29/2024 11/25/2023 10 Eighteen To Twenty Week Bhanu Update Ultra Sound Date Fundal Height At Umbil Quickening Date Ultra Sound Latest Weeks Gestation Final Bhanu Confirmed By Final Bhanu Confirmed Date Final Bhanu Date Ultra Sound Latest Days Gestation 0 0 Pre- Flowsheet Flowsheet Date 02/11/2024 Alex Score Blood Edema Fundus Height Fundus Units Glucose Ketones Leukocytes Nitrite Labor Signs Protein Cervic Dilation Cervic Effacement Cervic Station trace none trace Type Weight in lbs Pre/Post Dialysis Refused Weight 160.373730584327 BP Diastolic BP Location Tested BP Systolic [...] Weight in lbs Pre/Post Dialysis Refused Weight 163.114738620568 BP Diastolic BP Location Tested BP Systolic BP Type 91 148 Fetus Heart Rate Present Fetus Movement Comments problem visit, see note. Flowsheet Date 03/12/2024 Alex Score Blood Edema Fundus Height Fundus Units Glucose Ketones Leukocytes Nitrite Labor Signs Protein Cervic Dilation Cervic Effacement Cervic Station Type Weight in lbs Pre/Post Dialysis Refused Weight 168.009304848290 BP Diastolic BP Location Tested BP Systolic BP Type 69 151 Fetus Heart Rate Present A 155 Fetus Movement A No Comments Doing well, no further bleed ing. No cramping. No movement yet. Saw [facility], increased ASA to 2 per day. Will perform anatomy US at [facility]. Discussed diagnosis of cHTN, plan for 32 [...] Type Weight in lbs Pre/Post Dialysis Refused 172.776885408975 BP Diastolic BP Location Tested BP Systolic BP Type 81 L arm 138 sitting Fetus Heart Rate Present A 155 Fetus Movement A Yes Comments Patient c/o of swelling in h ands and feet. Was seen by [facility] for anatomy US, overall normal however incomplete. EFW 74%, breech presentation. Will repeat in 4 weeks with M. Patient reports hx of thrombocytopenia after medullary sponge kidney diagnosis; will trend plt count; discussed steroid course and parameters for epidural anesthesia. Will order EKG and ECHO for hx of chronic HTN per [facility] recommendations. M also requesting hemoglobin electrophoresis, ordered today. RTC 4 weeks. Flowsheet Date 05/05/2024 Alex Score Blood Edema Fundus Height Fundus Units Glucose Ketones Leukocytes Nitrite Labor Signs Protein Cervic Dilation Cervic Effacement Cervic Station neg none none neg Type Weight in lbs Pre/Post Dialysis Refused 187.570626966986 BP Diastolic BP Location Tested BP Systolic BP Type 81 L arm 138 sitting Fetus Heart Rate Present A 150 Fetus Movement A Yes Comments Patient reports headache tod ay, has not taken anything yet today. No vision changes, chest pain, dyspnea, RUQ pain or epigastric pain. Saw [facility], did not start nifedipine due to normotension at home. Will check labs today due to headache. Discussed GCT and labs for next visit. EFW 77% on [facility] US; echo scheduled for 05/15. Still need clearance of R foot, will repeat US with [facility]. RTC 4 weeks. Flowsheet Date 06/03/2024 Alex Score Blood Edema Fundus Height Fundus Units Glucose Ketones Leukocytes Nitrite Labor Signs Protein Cervic Dilation Cervic Effacement Cervic Station neg none none trace Type Weight in lbs Pre/Post Dialysis Refused 193.85609374511 BP Diastolic BP Location Tested BP Systolic BP Type 88 L arm 136 sitting Fetus Heart Rate Present A 155 Fetus Movement A Yes Comments Patient c/o of a little spot ting yesterday along with some pains. Reports BH contractions. No LOF. Good movement. Was seen by [facility] for right foot views, all normal. echo wnl as well. GCT and labs today. Discussed testing starting at 32 weeks. RTC 2 weeks. Flowsheet Date 06/16/2024 Alex Score Blood Edema Fundus Height Fundus Units Glucose Ketones Leukocytes Nitrite Labor Signs Protein Cervic Dilation Cervic Effacement Cervic Station neg none Type Weight in lbs Pre/Post Dialysis Refused Weight 198.028676534631 BP Diastolic BP Location Tested BP Systolic BP Type 84 L arm 133 sitting Fetus Heart Rate Present A 155 Fetus Movement A Yes Comments Patient c/o of [place]ribner Cervantes , and still feeling side affects [...] Weight in lbs Pre/Post Dialysis Refused Weight 201.527070995959 BP Diastolic BP Location Tested BP Systolic [...] Weight in lbs Pre/Post Dialysis Refused Weight 204.118606506787 BP Diastolic BP Location Tested BP Systolic BP Type 104 161 96 150 Fetus Heart Rate Present Fetus Movement Comments Flowsheet Date 07/07/2024 Alex Score Blood Edema Fundus Height Fundus Units Glucose Ketones Leukocytes Nitrite Labor Signs Protein Cervic Dilation Cervic Effacement Cervic Station trace Type Weight in lbs Pre/Post Dialysis Refused 204.650041622759 BP Diastolic BP Location Tested BP Systolic [...] Weight in lbs Pre/Post Dialysis Refused Weight 259.738592364971 BP Diastolic BP Location Tested BP Systolic BP Type 101 L arm 143 sitting Fetus Heart Rate Present A 145 Fetus Movement A Yes Comments Patient c/o of headches and slight nausea for the past few days. Also reports RUQ pain, unclear if related to movement. Recommend evaluation at [place] due to escalating BPs, will try tylenol for headache. Discussed induction at 37-38 weeks pending further evaluation. BPP 04/17. RTC 1 week. Flowsheet Date 07/21/2024 Alex Score Blood Edema Fundus Height Fundus Units Glucose Ketones Leukocytes Nitrite Labor Signs Protein Cervic Dilation Cervic Effacement Cervic Station neg none Type Weight in lbs Pre/Post Dialysis Refused Weight 207.147396484581 BP Diastolic BP Location Tested BP Systolic [...] Weight in lbs Pre/Post Dialysis Refused Weight 207.871425717091 BP Diastolic BP Location Tested BP Systolic [...]
--- OUTSIDE RECORDS SUMMARY | 2024-08-01 00:29 | XMS_ITS | Continuity of Care Document ---
Author Organization [facility] [place] Address [address] [place] [address] Assessment No assessment recorded. Plan of Treatment [...] recorde d. Surgeries None recorde d. Imaging US, obstetr ic, biophys ical profile + non-str ess test 2024 025 [email or web address] [place], [address], [address], [place], [address], 07/29/2024 20:36:37 Medication Orders None recorde d. Patient TargetsNo targets recorded. Patient InstructionsNo instructions recorded. Reason for Referral None Reported. Results Created Date Observation Date Name Description Value Unit Range Abnormal Flag Note LastModifiedBy Organization Detail LastModifiedTime 02/11/20 24 02/11/2024 US, obste tric, nucha l trans lucen cy No observ ation record ed. [email or web address] [place] [address], [place], [address], 02/11/2024 18:34:31 02/11/20 24 02/11/2024 US, tian talley, 1st trime ster No observ ation record ed. [email or web address] [place] [address], [place], [address], 02/11/2024 18:34:42 02/11/20 24 02/11/2024 , tian talley, follo w-up No observ ation record ed. [email or web address] [place] [address], [place], [address], 02/12/2024 09:38:46 02/19/20 24 02/19/2024 US, obstmario tric, limit ed No observ ation record ed. [email or web address] [place] [address], [place], [address], 02/19/2024 18:02:56 02/19/2002/19/2024 US, obstmairo tric, limit ed No observ ation record ed. [place] [address], [place], [address], 02/20/2024 09:54:38 03/05/20 24 03/05/2024 US, obste tric No observ ation record ed. [email or web address] [facility] [address] [place] [address], [address], 03/06/2024 14:14:37 03/05/2003/05/2024 US, obste tric, follo w-up No observ ation record ed. [facility] [address], [address], 03/06/2024 10:49:26 04/02/2004/02/2024 US, obste tric, follo w-up No observ ation record ed. [email or web address] [facility] [address], [address], 04/02/2024 16:42:56 04/02/2004/02/2024 US, obste tric, follo w-up No observ ation record ed. [email or web address] [facility] [address], [address], 04/02/2024 16:45:06 04/17/2004/16/2024 elect rafael carrizales am No observ ation record ed. [facility] ([facility]) [address] [place] [address] [address], [place], [address], 04/22/2024 10:33:05 04/30/2004/30/2024 US, obste tric, follo w-up No observ ation record ed. [facility] [address], [address], 05/01/2024 15:02:58 05/02/2004/30/2024 US, obste tric, follo w-up No observ ation record ed. [email or web address] [facility] [address], [address], 05/05/2024 10:18:08 05/27/20 elect rafael pantojagr am No observ ation record ed. [facility] [address], [place], [address], 05/28/2024 11:46:13 05/28/20 24 05/28/2024 US, obste tric, follo w-up No observ ation record ed. [email or web address] [facility] [address] , [place], [address], 05/29/2024 09:32:42 05/28/20 24 05/28/2024 US, obste tric, follo w-up No observ ation record ed. [email or web address] [facility] [address] [place], [address], 05/29/2024 09:41:17 06/25/20 24 06/25/2024 US, obste tric, follo w-up No observ ation record ed. [email or web address] [facility] [address] [place], [address], 06/26/2024 13:36:23 06/27/20 24 06/25/2024 US, obste tric, follo w-up No observ ation record ed. [email or web address] [facility] [address] [place] [address], [address], 07/11/2024 11:21:50 06/30/20 24 06/30/2024 non-s tress test No observ ation record ed. [email or web address] [place] [address], [place], [address], 06/30/2024 16:21:35 07/07/20 24 07/07/2024 non-s tress test No observ ation record ed. [email or web address] [place] [address], [place], [address], 07/07/2024 21:17:27 07/10/19 25 07/10/2024 US, obste tric, bioph ysica l profi le No observ ation record ed. [email or web address] [place] [address], [place], [address], 07/10/2024 18:24:47 07/10/19 25 07/10/2024 US, obste tric, bioph ysica l profi le No observ ation record ed. [email or web address] [place] [address], [place], [address], 07/10/2024 21:55:58 07/15/19 25 07/07/2024 non-s tress test No observ ation record ed. [place] [address], [place], [address], 07/15/2024 11:35:49 07/15/19 25 07/15/2024 US, obste tric, bioph ysica l profi le + non-s tress test No observ ation record ed. [email or web address] [place] [address], [place], [address], 07/15/2024 16:35:24 07/15/19 25 07/15/2024 US, obste tric, bioph ysica l profi le + non-s tress test No observ ation record ed. [email or web address] [place] [address], [place], [address], 07/15/2024 21:29:07 07/15/19 25 07/15/2024 non-s tress test No observ ation record ed. [email or web address] [place] [address], [place], [address], 07/15/2024 16:53:50 07/23/19 25 07/23/2024 US, obste tric, follo w-up No observ ation record ed. [email or web address] [facility] [address], [place], [address], 07/25/2024 20:57:14 07/25/19 25 07/23/2024 US, obste tric, follo w-up No observ ation record ed. [email or web address] [facility] [address] [facility], [place], [address], 07/29/2024 07:32:34 07/29/19 25 07/29/2024 US, obste tric, bioph ysica l profi le + non-s tress test No observ ation record ed. [email or web address] [address], [place], [address], 07/29/2024 17:42:55 07/29/19 25 07/29/2024 US, obste tric, follo w-up No observ ation record ed. [email or web address] [place] [address], [place], [address], 07/30/2024 09:24:07 07/29/19 25 07/29/2024 non-s tress test No observ ation record ed. [email or web address] [place] [address], [place], [address], 07/29/2024 16:39:39 Result Notes None recorded. Problems Name Problem SNOMED Code Status Onset Date Resolution Date Notes Provider Name and Address Organization Details Recorded Time 65083279 Active 2023 Chantel alcaraz, [facility] 4 16:12:34 Kidney disease 15111796 Active medullary sponge kidney, seen by M ARUN NICOLE MD [address], [place], [address], [facility] 4 12:07:32 Complicat ed migraine 870255592 Active Anthony Perkins MD [address], [place], [address], [facility] 4 16:25:18 Hypertens camron disorder 29956556 Active no meds - 38wk delivery, 32wk antentata l testing weekly Lynnette Renee [facility], [facility] 4 14:45:34 Hypertens camron disorder 67372055 Active no meds - 38wk delivery, 32wk antentata l testing weekly Lynnette Renee [facility], [facility] 4 14:45:34 Hypertens camron disorder 02325723 Active no meds Lynnette Renee [facility], [facility] 4 14:45:34 Kidney disease 08024256 Active medullary sponge kidney, seen by MFM ARUN NICOLE MD [address], [place], [address], [facility] 4 12:07:37 Advanced maternal age 135474271 Active [facility], [facility] 4 14:42:27 Cardiac arrhythmi a 393398457 Active 2023 [facility] rec EKG- normal, maternal ECHO, cardiolog y referral if needed ARUN NICOLE MD [address], [place], [address], [facility] 4 14:24:21 Breech presentat ion 9836176 Active 2023 ARUN NICOLE MD [address], [place], [address], [facility] 4 00:46:39 Problem Notes None recorded. Procedures Surgical History Date Name Laterality Status Provider Name and Address Organization Details Recorded Time 4 Date of Last Pap Smear completed Chantel Nguyen [facility] 02/11/2024 16:12:10 6 extraction of wisdom tooth completed Chantel Nguyen [facility] 02/12/2024 18:23:38 Imaging Results Imaging Date Name Status LastModified by Organiz ation Details LastModified Time 07/29/2024 US, obstetric, biophysical profile + non-stress test completed [facility] [address], [place], [address], 07/29/2024 17:42:55 Procedure Notes None recorded. Medical Equipment None Reported. Allergies Allergen ID Allergen Name Allergen Category Reaction Reaction Severity Criticality Documentation Date Start Date Code Code System Note Provider Name and Address Organization Details Recorded Time Hayfever medicatio n Not available Not available Not available 01/29/2024 14166 PETAR Reyes [facility] 14:29:27 26592 chlorphen iramine / phenylpro panolamin e medicatio n eye swelling moderate Not available 02/11/2024 84289 4 RxNorm Chantel Nguyen [facility], [facility] 4 16:04:13 Medications Name Sig Start [...] Updated DateTime 07/29/2024 167.64 cm 33.4 kg/m2 02510.62 g 150 mm[Hg] 88 mm[Hg] Joya Coburn [facility] 5 16:08:14 Social History Question Answer Notes LastModified by Organizat ion Details LastModified Time Tobacco Smoking Status Never Smoker Bita Reyes [facility] 01/29/2024 14:38:33 What Is Your Level Of Alcohol Consumption? None [email or web address] Information not available 02/11/2024 Are You Blind [...] Or The Highest Degree You Have Received? 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 [id number] [email or web address] Information not available 02/11/2024 Do You Use [...] 01/29/2024 What is your exercise level? Heavy [email or web address] Information not available 02/11/2024 Mental Status None recorded. Family History Relationship Description Onset Age of this Age Resolved Age Notes LastModified by Organization Details LastModified Time Maternal Grandfather Heart disease [email or web address] Not available 02/10 16:04:14 Paternal Grandfather Heart disease [email or web address] Not available 02/10 16:04:14 Father Heart disease [email or web address] Not available 02/10 16:04:14 Medical History Condition Response Allergies (Food, seasonal, environmental ) N Other N Drug/Latex Allergies/Reactions N Blood Transfusion N Breast Cancer N Dermatologic Disorders N Lung Disease N [...] SNOMED-CT Code Diagnosis ICD10 Code Diagnosis Note [id number] Joya Coburn [place] [address],[place] [address] 06/30/2024 14:26:58 06/30/2024 16:33:56 Chronic hypertension complicating AND/OR reason for care during 24316599 O16.9 [id number] ARUN NICOLE MD [place] [address],[place] [address] 06/30/2024 14:27:26 06/30/2024 15:59:05 Advanced maternal age 139900280 O09.529 Kidney disease 20217174 N08 Breech presentation 6096 002 O32.1XX9 Gestation period, 31 weeks 22288855 Z3A.31 Chronic hy pertension complicating AND/OR reason for care during 12723180 O16.9 214939 Chantel Nguyen [place] [address],[place] [address] 07/07/2024 13:54:09 07/08/2024 06:10:25 -induced hypertension 55130280 O13.9 799210 Anthony Perkins MD [place] [address] [place] [address] 07/07/2024 13:54:37 07/07/2024 16:00:27 Routine care 580683715 Z34.90 O26.891 [id number] Gloria Moreno [place] [address],[place] [address] 07/10/2024 16:54:17 07/10/2024 17:41:16 Advanced maternal age 304019752 O09.523 O16.3 O09.293 O99.893 Z3A.33 [id number] Joya Coburn [place] [address],[place] [address] 07/15/2024 15:23:11 07/15/2024 16:56:57 Chronic hypertension complicating AND/OR reason for care during 57577270 O16.9 [id number] [facility] [address],[place] [address] 07/15/2024 15:23:25 07/15/2024 16:26:06 Advanced maternal age 584575559 O09.523 O16.3 O09.293 O99.893 Z3A.34 [id number] ARUN NICOLE MD [place] [address],[place] [address] 07/15/2024 16:01:40 07/23/2024 01:08:03 Chronic hypertension complicating AND/OR reason for care during 12914390 O16.9 - intermitte nt headaches, otherwise asymptomat ic- BP mild range- labs wnl 1 week ago, repeat today- return precaution s reviewed Advanced m aternal age 171188670 O09.529 Kidney disease 89404737 N08 Gestation period, 35 weeks 87942326 Z3A.35 [id number] ARUN NICOLE MD [place] [address],[place] [address] 07/21/2024 16:14:55 07/23/2024 06:39:16 Chronic hypertension complicating AND/OR reason for care during 27518874 O16.9 - intermitte nt headaches, otherwise asymptomat ic- BP mild range- labs wnl 1 week ago, repeat today- return precaution s reviewed Advanced m aternal age 566777737 O09.529 Kidney disease 33527906 N08 Gestation period, 34 weeks 56120359 Z3A.34 [id number] [facility] [address],[place] [address] 07/29/2024 14:48:28 07/29/2024 15:34:11 Advanced maternal age 404395905 O09.523 O16.3 O09.293 O99.893 Z3A.36 [id number] Joya Coburn [place] [address],[facility] [place] [address] 07/29/2024 14:48:41 07/29/2024 16:43:29 Chronic hypertension complicating AND/OR reason for care during 33213406 O16.9 - intermitte nt headaches, otherwise asymptomat ic- BP mild range- labs wnl 1 week ago, repeat today- return precaution s reviewed [id number] ARUN NICOLE MD [place] [address],[place] [address] 07/29/2024 14:49:03 07/29/2024 16:46:28 Headache 09646687 R51.9 Chronic hy pertension complicating AND/OR reason for care during 80394794 O16.9 - intermitte nt headaches, otherwise asymptomat ic- BP mild range- labs wnl 1 week ago, repeat today- return precaution s reviewed Mild pre-eclampsia 36916 007 O14.03 Advanced m aternal age 069518759 O09.529 Kidney disease 42143387 N08 Gestation period, 36 weeks 10407377 Z3A.36 Health Concerns Section Related Observation LastModified by Organization Detai ls LastModified Time None Recorded Concern Status LastModified by Organization Details LastModified Time None Recorded Payers Encounter Date Sequence Insurance Name Policy Number Policy Dawn Covered Member ID Dawn Member ID Guarantor Name 07/29/2024 1 [place] [id number] Miguelina Diaz [id number] Miguelina Diaz OBGyn Episode Ob Episode Information Episode Created Date Number of Fetuses Patient Bloodtype Patient rh Status Prepregnancy Weight lbs Domestic Partner Domestic Partner Phone Father Name Probation Supervisor Status 02/11/20 24 1 A Positive 156 Bulmaro OPEN Fetus Data First Name Last Name Admitted to NICU Weight (g) Sex Living Outcome Pediatric Complications Fetus ID Race Codes Race Delivery Type [id number] Problems Problem Notes [facility] 05/15 echo, 05/28 9 am 07/23/24 US, [facility] office visit Recommendations: prompt eval with s/s [...] Resolution Snomed Code Not e Hypertensive disorder 11302516 no meds - 38wk delivery, 32wk antentatal testing weekly Complicated migraine 363342831 Kidney disease 96560389 medswetha hilda sponge kidney, seen by [facility] Cardiac arrhythmia 04/03/2024 [id number] [facility] rec EKG- normal, maternal ECHO, cardiology referral if needed Breech presentation 04/07/2024 [id number] Advanced maternal age 707078160 Bhanu Calculation Initial Bhanu Date Initial Exam Date Initial Exam Provider Initial Ultrasound Date Last Menstrual Period Date Ultra Sound Weeks Gestation 08/26/2024 01/29/2024 [email or web address] 01/29/2024 11/25/2023 10 Eighteen To Twenty Week [...] Weight in lbs Pre/Post Dialysis Refused Weight 160.409629038868 BP Diastolic BP Location Tested BP Systolic [...] Weight in lbs Pre/Post Dialysis Refused Weight 163.918424239533 BP Diastolic BP Location Tested BP Systolic BP Type 91 148 Fetus Heart Rate Present Fetus Movement Comments problem visit, see note. Flowsheet Date 03/12/2024 Alex Score Blood Edema Fundus Height Fundus Units Glucose Ketones Leukocytes Nitrite Labor Signs Protein Cervic Dilation Cervic Effacement Cervic Station Type Weight in lbs Pre/Post Dialysis Refused Weight 168.818653439819 BP Diastolic BP Location Tested BP Systolic BP Type 69 151 Fetus Heart Rate Present A 155 Fetus Movement A No Comments Doing well, no further bleed ing. No cramping. No movement yet. Saw M, increased ASA to 2 per day. Will perform anatomy US at [facility]. Discussed diagnosis of cHTN, plan for 32 [...] Type Weight in lbs Pre/Post Dialysis Refused 172.018958299349 BP Diastolic BP Location Tested BP Systolic BP Type 81 L arm 138 sitting Fetus Heart Rate Present A 155 Fetus Movement A Yes Comments Patient c/o of swelling in h ands and feet. Was seen by [facility] for anatomy US, overall normal however incomplete. EFW 74%, breech presentation. Will repeat in 4 weeks with M. Patient reports hx of thrombocytopenia after medullary sponge kidney diagnosis; will trend plt count; discussed steroid course and parameters for epidural anesthesia. Will order EKG and ECHO for hx of chronic HTN per [facility] recommendations. [facility] also requesting hemoglobin electrophoresis, ordered today. RTC 4 weeks. Flowsheet Date 05/05/2024 Alex Score Blood Edema Fundus Height Fundus Units Glucose Ketones Leukocytes Nitrite Labor Signs Protein Cervic Dilation Cervic Effacement Cervic Station neg none none neg Type Weight in lbs Pre/Post Dialysis Refused 187.148433754595 BP Diastolic BP Location Tested BP Systolic BP Type 81 L arm 138 sitting Fetus Heart Rate Present A 150 Fetus Movement A Yes Comments Patient reports headache tod ay, has not taken anything yet today. No vision changes, chest pain, dyspnea, RUQ pain or epigastric pain. Saw [facility], did not start nifedipine due to normotension at home. Will check labs today due to headache. Discussed GCT and labs for next visit. EFW 77% on [facility] US; echo scheduled for 05/15. Still need clearance of R foot, will repeat US with [facility]. RTC 4 weeks. Flowsheet Date 06/03/2024 Alex Score Blood Edema Fundus Height Fundus Units Glucose Ketones Leukocytes Nitrite Labor Signs Protein Cervic Dilation Cervic Effacement Cervic Station neg none none trace Type Weight in lbs Pre/Post Dialysis Refused 193.41301200330 BP Diastolic BP Location Tested BP Systolic BP Type 88 L arm 136 sitting Fetus Heart Rate Present A 155 Fetus Movement A Yes Comments Patient c/o of a little spot ting yesterday along with some pains. Reports BH contractions. No LOF. Good movement. Was seen by [facility] for right foot views, all normal. echo wnl as well. GCT and labs today. Discussed testing starting at 32 weeks. RTC 2 weeks. Flowsheet Date 06/16/2024 Alex Score Blood Edema Fundus Height Fundus Units Glucose Ketones Leukocytes Nitrite Labor Signs Protein Cervic Dilation Cervic Effacement Cervic Station neg none Type Weight in lbs Pre/Post Dialysis Refused Weight 198.189282199836 BP Diastolic BP Location Tested BP Systolic BP Type 84 L arm 133 sitting Fetus Heart Rate Present A 155 Fetus Movement A Yes Comments Patient c/o of [place] , and still feeling side affects [...] Weight in lbs Pre/Post Dialysis Refused Weight 201.913890643161 BP Diastolic BP Location Tested BP Systolic [...] Weight in lbs Pre/Post Dialysis Refused Weight 204.324315027271 BP Diastolic BP Location Tested BP Systolic BP Type 104 161 96 150 Fetus Heart Rate Present Fetus Movement Comments Flowsheet Date 07/07/2024 Alex Score Blood Edema Fundus Height Fundus Units Glucose Ketones Leukocytes Nitrite Labor Signs Protein Cervic Dilation Cervic Effacement Cervic Station trace Type Weight in lbs Pre/Post Dialysis Refused 204.181029046822 BP Diastolic BP Location Tested BP Systolic [...] Weight in lbs Pre/Post Dialysis Refused Weight 259.426377424725 BP Diastolic BP Location Tested BP Systolic BP Type 101 L arm 143 sitting Fetus Heart Rate Present A 145 Fetus Movement A Yes Comments Patient c/o of headches and slight nausea for the past few days. Also reports RUQ pain, unclear if related to movement. Recommend evaluation at [place] due to escalating BPs, will try tylenol for headache. Discussed induction at 37-38 weeks pending further evaluation. BPP 04/17. RTC 1 week. Flowsheet Date 07/21/2024 Alex Score Blood Edema Fundus Height Fundus Units Glucose Ketones Leukocytes Nitrite Labor Signs Protein Cervic Dilation Cervic Effacement Cervic Station neg none Type Weight in lbs Pre/Post Dialysis Refused Weight 207.901240554317 BP Diastolic BP Location Tested BP Systolic [...] Weight in lbs Pre/Post Dialysis Refused Weight 207.986035161128 BP Diastolic BP Location Tested BP Systolic [...]
[2024-08-01] MEDS: ONDANSETRON INJ 4 MG/2 ML VIAL IV PUSH ×2 (01:55→09:55)
[2024-08-01 02:19] LABS: Basophils Percent Auto 0.3 % (0.2-1.2); Eosinophils Percent Auto 0.1 % (0-4.4); Hematocrit 36.1 % (37.0-47.0); Hemoglobin 12.4 g/dL (12.0-15.0); Immature Granulocyte Absolute 0.09 K/mm3 (0.00-0.031); Immature Granulocyte Percent A 0.7 % (0-0.5); Lymphocytes Absolute Auto 1.21 K/mm3 (0.9-3.2); Lymphocytes Percent Auto 9.3 % (18.3-44.2); Mean Corpuscular HGB Conc 34.3 g/dl (32-36); Mean Corpuscular Hemoglobin 30.9 pg (26-34); Mean Platelet Volume 12.1 fl (7.4-10.4); Monocytes Percent Auto 7.5 % (2.6-8.5); Neutrophils Absolute Auto 10.7 K/mm3 (1.3-6.7); Neutrophils Percent Auto 82.1 % (45.5-73.1); Platelet Count Result 128 k/mm3 (150-375); Red Blood Count 4.01 M/mm3 (4.2-5.4); Red Cell Distribution Width 13.2 % (11.5-14.5)
[2024-08-01 02:30] LABS: Alanine Aminotransferase 13 U/L (6-35); Alkaline Phosphatase 182 U/L (38-126); Anion Gap 8 mmol/L (4-12); Aspartate Amino Transferase 18 U/L (14-36); Bilirubin,Total 0.8 mg/dL (0.2-1.3); Blood Urea Nitrogen 10 mg/dL (7-17); Calcium 6.6 mg/dL (8.4-10.2); Carbon Dioxide 19 mmol/L (22-30); Chloride 103 mmol/L (98-107); Estimated CRCL calculation 112 ml/min; Estimated Glomerular Filt Rate > 60; Glucose 98 mg/dL (65-110); Potassium 3.8 mmol/L (3.4-5.0); Sodium 130 mmol/L (137-145); Uric Acid 6.6 mg/dL (2.5-7.5)
[2024-08-01] MEDS: AMPICILLIN 1 GM/NS 50 ML 1 GM/50 ML BAG IVPB ×3 (03:14→11:48)
[2024-08-01] MEDS: MAGNESIUM SULF 20GM/WATER500ML 500 ML 50 MG IV CONT ×2 (06:47→17:32)
--- NOTE | 2024-08-01 07:13 | PM.OBPNLAB ---
Pain Control Date/time seen: 08/01/24 07:13 Comments: pt comfortable with epidural, colon bulb fell out this morning. SVE /-2, AROM large amount of clear, odorless fluid, IUPC placed, FHR category 1, anticipate vaginal delivery
[2024-08-01] MEDS: PHENYLEPHRINE 1,000 MCG/10 ML SYRINGE 100 MCG IV PUSH ×2 (10:14→10:20)
[2024-08-01] MEDS: LACTATED RINGERS 1,000 ML 75 ML IV CONT ×2 (10:14→22:46)
--- NOTE | 2024-08-01 15:04 | P.PCNOB_ITS ---
OB - Vaginal Delivery Note Procedure Delivery date: 08/01/24 Events: Preeclampsia w severe features Induction method: AROM, Per Misoprostol Protocol and Per Pitocin Protocol Delivery monitor: External FHT and Internal Uterine Route of delivery: Episiotomy description: None Laceration Description: Superficial Specimen: Yes Quantitative Blood Loss (ml): 100 Anesthesia type: Epidural Disposition: Floor Complications: No immediate complications [place] Baby Date of : 08/01/24 Time of : 14:50 Gestational Age by Date: 36 gender: Male Weight (pounds): 5 Weight (ounces): 13 presentation: vertex position: Left Occiput Anterior Placenta delivery description: Spontaneous Cord Vessel Description: 3 Vessels, Clamped/Cut and Delayed Cord Clamping Narrative: baby to warmer for evaluation , 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
[2024-08-01] MEDS: OXYTOCIN 30 UNITS/NS 500 ML 30 UNITS/500 ML BAG 125 UNITS IV CONT (15:38)
[2024-08-01] MEDS: IBUPROFEN 600 MG TABLET PO (17:31)
[2024-08-01 17:37] LABS: Hematocrit 36.2 % (37.0-47.0); Hemoglobin 12.7 g/dL (12.0-15.0); Mean Corpuscular HGB Conc 35.1 g/dl (32-36); Mean Corpuscular Hemoglobin 31.2 pg (26-34); Mean Corpuscular Volume 88.9 fl (80-100); Mean Platelet Volume 12.1 fl (7.4-10.4); Platelet Count Result 124 k/mm3 (150-375); Red Blood Count 4.07 M/mm3 (4.2-5.4); Red Cell Distribution Width 13.1 % (11.5-14.5); White Blood Count 16.2 K/mm3 (4.5-10.0)
--- NOTE | 2024-08-01 17:45 | OBPPTRN ---
1740-Patient transferred to post room #284 via wheelchair. Support person present. Oriented to unit, room, information board, rooming in, admission packet and security measures. Patient verbalizes understanding.
[2024-08-01 17:47] LABS: Alanine Aminotransferase 13 U/L (6-35); Albumin Level 3.1 g/dL (3.5-5.1); Alkaline Phosphatase 187 U/L (38-126); Anion Gap 6 mmol/L (4-12); Aspartate Amino Transferase 23 U/L (14-36); Bilirubin,Total 0.8 mg/dL (0.2-1.3); Blood Urea Nitrogen 8 mg/dL (7-17); Calcium 6.4 mg/dL (8.4-10.2); Carbon Dioxide 20 mmol/L (22-30); Chloride 102 mmol/L (98-107); Estimated CRCL calculation 107 ml/min; Estimated Glomerular Filt Rate > 60; Glucose 103 mg/dL (65-110); Potassium 3.7 mmol/L (3.4-5.0); Sodium 128 mmol/L (137-145); Uric Acid 7.4 mg/dL (2.5-7.5)
[2024-08-02] VITALS (7 sets, daily range): BP systolic 99–121; BP diastolic 61–88; PULSE 74–99; RESP 16–20; TEMP 36.3–36.8; O2SAT 96–99
[2024-08-02] MEDS: MAGNESIUM SULF 20GM/WATER500ML 500 ML 50 MG IV CONT (04:00)
[2024-08-02 07:34] LABS: Hematocrit 33.1 % (37.0-47.0); Hemoglobin 11.4 g/dL (12.0-15.0)
--- NOTE | 2024-08-02 08:30 | PC.NURSE ---
Per primary RN, patient not wanting to pump at this time. She was educated on the need to stimulate her breasts if she wants to produce a good milk supply. Patient will let us know if she desires a breast pump.
--- NOTE | 2024-08-02 08:34 | P.PNOB_ITS ---
OB - PN: Subj Subjective Date/time seen: 08/02/24 08:34 Patient comments: no complaints, pain well controlled, incisional pain, tolerating diet and flatus present OB - PN: Obj Data Labs 08/02/24 07:27 08/01/24 17:20 Labs: Laboratory Results - last 24 hr 08/01/24 08/02/24 17:20 07:27 WBC 16.2 H RBC 4.07 L Hgb 12.7 11.4 L Hct 36.2 L 33.1 L MCV 88.9 MCH 31.2 MCHC 35.1 RDW 13.1 Plt Count 124 L MPV 12.1 H Sodium 128 L Potassium 3.7 Chloride 102 Carbon Dioxide 20 L Anion Gap 6 BUN 8 Creatinine 0.70 Estim Creat Clear Calc 107 Estimated GFR > 60 Glucose 103 Uric Acid 7.4 Calcium 6.4 L Total Bilirubin 0.8 AST 23 ALT 13 Alkaline Phosphatase 187 H Total Protein 6.0 L Albumin 3.1 L OB - PN A/P Plan day: 1 Plan: routine care Comments: No problems, routine care, preeclampsia, stable, on magnesium sulfate at this time. She discontinued 24 hours. Time Spent With Patient Time: Total time spent is greater than 50% in coordination of care (as documented) at patient's floor/unit and/or counseling patient: Exam 2 Const: General: comfortable, no acute distress and alert Resp: Effort & Inspection: normal respiratory effort Auscultation: no crackles, no rales and no rhonchi Cardio: Rate: regular rate Heart sounds: no click, no murmurs and no rubs GI: Inspection: non-distended GI Palp: No Tenderness to palpation present (GI) Auscultation: normal bowel sounds Other: Incision - CDI Extrem: General: normal to inspection, no pedal edema and no calf tenderness
[2024-08-02] MEDS: DOCUSATE SODIUM 100 MG CAPSULE PO ×2 (08:39→17:31)
[2024-08-02] MEDS: MULTIVIT/MIN/PREN/FOL AC/IRON TABLET 1 TAB PO (08:39)
[2024-08-02] MEDS: LACTATED RINGERS 1,000 ML 75 ML IV CONT (11:25)
--- NOTE | 2024-08-02 15:04 | WPDANLDPN2 ---
Anes-Prog Note L&D Date/Time: 08/02/24 15:04 Comfortable throughout: labor and delivery Neuraxial method: epidural Epidural/Spinal procedure site: clean & non-tender Neuro status: Neuro function grossly intact. Cardiovascular status: normal Respiratory status: normal Airway patency: baseline Mental status: baseline Post-Op hydration status: normal Vital Signs: Last Vital Signs Temp 36.4 C L 08/02/24 11:30 Pulse 78 08/02/24 11:30 Resp 16 08/02/24 11:30 BP 108/71 08/02/24 11:30 Pulse Ox 98 08/02/24 11:30 O2 Del Method Room Air 08/02/24 11:30 Pain score (VAS): 2 I/O: Intake & Output 08/01/24 08/02/24 08/02/24 23:59 07:59 15:59 Intake Total 944 595 1263.8 Output Total 750 1800 1000 Balance -250 -1026 1703.8 Post-procedural complaints: none Patient feedback: Patient satisfied with anesthetic care.
[2024-08-02] MEDS: IBUPROFEN 600 MG TABLET PO (20:55)
[2024-08-03 06:16] VITALS: BP 124/78; PULSE 65; O2SAT 96
[2024-08-03 08:15] VITALS: BP 146/86; PULSE 71; RESP 16; TEMP 36.9; O2SAT 97
[2024-08-03] MEDS: MULTIVIT/MIN/PREN/FOL AC/IRON TABLET 1 TAB PO (09:43)
[2024-08-03] MEDS: DOCUSATE SODIUM 100 MG CAPSULE PO (09:43)
--- NOTE | 2024-08-03 12:04 | P.PNOB_ITS ---
OB - PN: Subj Subjective Date/time seen: 08/03/24 12:04 Patient comments: no complaints, pain well controlled and tolerating diet OB - PN: Obj Data Labs 08/02/24 07:27 08/01/24 17:20 OB - PN A/P Plan day: 2 Plan: routine care and discharge home Time Spent With Patient Time: Total time spent is greater than 50% in coordination of care (as documented) at patient's floor/unit and/or counseling patient: Exam 2 Const: General: comfortable and no acute distress Resp: Effort & Inspection: normal respiratory effort Auscultation: no rales, no rhonchi and no wheezes Cardio: Rate: regular rate Heart sounds: no click, no murmurs and no rubs GI: GI Palp: Yes Soft to palpation and No Tenderness to palpation present (GI) Auscultation: normal bowel sounds Extrem: General: normal to inspection, no pedal edema and no calf tenderness
--- NOTE | 2024-08-03 12:04 | PM.OBDSVD ---
DS: Admitting Diagnosis Discharge Date August 03, 2023 Admitting Diagnosis term DS: Discharge Diagnosis Discharge Diagnosis (1) Term delivered: Code(s): O80 - Encounter for full-term uncomplicated delivery Status: Acute OB - DS: Summary OB Procedures : None OB Procedures Intrapartum: Spontaneous Vag Delivery OB Procedures: : None Peripartum Data Laceration Description: Superficial Episiotomy description: None Time Spent with Patient Time attestation: Total time spent providing and/or coordinating discharge services: Discharge Plan Discharge Discharging Clinician: Anthony Perkins Activity: pelvic rest Diet: regular Patient Language: Bulgarian Follow-up/Referrals: Anthony Perkins MD [Physician] - Discharge Medications: No Action PNV [id number] fumarate-FA [] 28 mg iron- 800 mcg tablet 1 tablet PO DAILY aspirin [Adult Aspirin Regimen] 81 mg tablet,delayed release (DR/EC) 162 mg PO HS Date of admission: 07/30/24 12:31 Primary Care Provider: PHYSICIAN,ELECTRIC TRACK SWITCH MAINTAINER Admitting Provider: Ace Parrish Attending physician on admission: Ace Parrish Condition: Stable
[2024-08-03 13:00] VITALS: BP 139/95
[2024-08-03 16:30] VITALS: BP 148/87
--- NOTE | 2024-08-03 18:22 | PC.NURSE ---
Patient viewed the discharge video Mother & Baby Care, The First Two Weeks . Patient was given the opportunity and encouraged to ask questions. Patient verbalized understanding of information shared and has been given the mother/baby guide for home reference.
[2024-08-05 15:11] VITALS: BP 137/87; PULSE 88; RESP 18; TEMP 36.7; O2SAT 97
== END 2024-08-03 19:11 | disposition home or self-care (01) | DRG 807 ==
LOC: ANHOB2 08-03 18:13 → ANHLDR 08-05 09:51
PROVIDERS: Advanced Practice Midwife; Admitting Provider Obstetrics & Gynecology; Visit Provider Obstetrics & Gynecology
DX: O11.4 Pre-existing hypertension with pre-eclampsia, complicating childbirth (principal); Z37.0 Single live birth; O69.81X0 Labor and delivery complicated by cord around neck, without compression, not applicable or unspecified; Z3A.36 36 weeks gestation of pregnancy; O10.92 Unspecified pre-existing hypertension complicating childbirth
CPT/HCPCS: 36415; 80053; 81001; 82570; 84156; 84550; 85014; 85018; 85025; 85027; 86592; 86703; 86850; 86900; 86901; 87086; 88307; A9270; G0432; J0290; J2371; J2405; J2590; J2795; J3475; J7120

== ENCOUNTER 2024-08-08 14:25 | Outpatient (CLI) | payer BC, SELFPAY ==
--- OUTSIDE RECORDS SUMMARY | 2024-08-08 14:40 | XMS_ITS | Patient Health Summary ---
Author Organization [facility] Address [address] [place] [address] Care Team Providers Care Pipe Stem Repairer Name Role Phone Unavailable Primary Care Provider Unavailabl e Note from [facility],non-owned Affiliates and Associated Physician Practices is amultiple site organization consisting of ambulatory clinics and hospital sitesin [place], [place], [place] and [place]. This disclosure is being madepursuant to the Care Everywhere program and may not contain all information available regarding this patient. Last updated 18.[facility] [employer] Allergies No known active allergies Medications * Be aware that medications may not be up to date on this document. Alwaysverify current medications with the patient. * Vit-DSS-Fe Fum-FA ( vitamin with iron) tablet Take 1 (one) tablet by mouth once daily * aspirin (Aspirin) 81 MG chew tablet Take 2 (two) tablets by mouth once daily * NIFEdipine CR 24hr (Adalat CC) 30 MG tablet(Started 04/16/2024) Take 1 (one) tablet by mouth once daily Take on an empty stomach. 2 refills by 04/16/2025 * acetaminophen (Tylenol) 500 MG tablet Take 2 (two) tablets by mouth every 4 hours as needed for Fever or Pain Maximum allowable Acetaminophen amount = 4 Grams (4000 mg) / 24 hours. * metoclopramide (Reglan) 10 MG tablet Take 1 (one) tablet by mouth 3 times daily before meals Reasons: Nausea and Vomiting in Active Problems Problem Noted Date Diagnosed Date History of intrauterine grow th restriction in prior , currently , second trimester 03/05/2024 Family history of congenital heart disease 03/05 Supervision of high risk in [facility] 03/05/2024 Peripheral vision loss, right 03/05/2024 Antepartum multigravida of advanced maternal age 0803/05/2024 Hx of migraines 03/05/2024 Renal disease in , antepartum, second t rimester 03/05/2024 Kidney disease, medullary sponge 03/05/2024 Social History Tobacco Use Types Packs/Day Years Used Date Smoking Tobacco: Never Smokeless Tobacco: Never Tobacco Cessation:Counseling Given: Not Answered Alcohol Use Standard Drinks/Week Comments Not Currently 0 (1 standard drink = 0.6 oz pur e alcohol) Estimated Date of Delivery Comme nts Yes 08/26/2024 Based on Ultraso und Sex and Gender Information Value Date Recorded Sex Assigned at Not on file Gender Identity Not on file Sexual Orientation Not on file Last Filed Vital Signs Vital Sign Reading Time Taken Comments Blood Pressure 148/98 07/30/2024 9:47 AM HAIRSPRING II INSPECTOR Pulse 84 07/30/2024 9:47 AM HAIRSPRING II INSPECTOR Temperature - - Respiratory Rate 18 04/30/2024 2:27 PM CDT Oxygen Saturation - - Inhaled Oxygen Concentration - - Weight 94 kg (207 lb 3.2 oz) 07/30/2024 9:47 AM HAIRSPRING II INSPECTOR Height 167.6 cm (5' 6 ) 03/05/2024 2:04 PM CDT Body Mass Index 33.44 03/05/2024 2:04 PM CDT Procedures * SONOGRAM - COMPLETE(Performed 07/23/2024) Performed for History of intrauterine growth restriction in prior , currently , second trimester ([facility]), Supervision of high risk in second trimester ([facility]), Chronic hypertension affecting ([facility]), Renal disease in , antepartum, second trimester ([facility]), Encounter for ultrasound to assess growth ([facility]), 31 weeks gestation of ([facility]), Family history of congenital heart disease, Peripheral vision loss, right, Kidney disease, medullary sponge, Hx of migraines, Antepartum multigravida of advanced maternal age ([facility]), Encounter for follow-up ultrasound of anatomy ([facility]) * SONOGRAM - COMPLETE(Performed 06/25/2024) Performed for History of intrauterine growth restriction in prior , currently , second trimester ([facility]), Supervision of high risk in second trimester ([facility]), Chronic hypertension affecting ([facility]), Renal disease in , antepartum, second trimester ([facility]), Encounter for ultrasound to assess growth ([facility]), 31 weeks gestation of ([facility]), Family history of congenital heart disease, Peripheral vision loss, right, Kidney disease, medullary sponge, Hx of migraines, Antepartum multigravida of advanced maternal age (HCC), Encounter for follow-up ultrasound of anatomy ([facility]) * SONOGRAM - COMPLETE(Performed 05/28/2024) Performed for Supervision of high risk in second trimester (HCC), Chronic hypertension affecting (HCC), Renal disease in , antepartum, second trimester (HCC), Encounter for ultrasound to assess growth (HCC), 27 weeks gestation of (HCC), Encounter for follow-up ultrasound of anatomy ([facility]) * ECHO COMPLETE CG(Performed 05/15/2024) Performed for Family history of congenital heart disease * SONOGRAM - COMPLETE(Performed 04/30/2024) Performed for History of intrauterine growth restriction in prior , currently , second trimester (HCC), Supervision of high risk in second trimester (HCC), Chronic hypertension affecting (HCC), Renal disease in , antepartum, second trimester (HCC), 23 weeks gestation of (HCC), Family history of congenital heart disease * SONOGRAM - COMPLETE(Performed 04/02/2024) Performed for History of intrauterine growth restriction in prior , currently , second trimester (HCC), Supervision of high risk in second trimester (HCC), Renal disease inpregnancy, antepartum, second trimester (HCC), Antepartum multigravida of advanced maternal age (HCC), Family history of congenital heart disease, Kidney disease, medullary sponge, Peripheral vision loss, right, Hx of migraines, 19 weeks gestation of (HCC) * SONOGRAM - COMPLETE(Performed 03/05/2024) Performed for Antepartum multigravida of advanced maternal age (HCC), Kidney disease, medullary sponge, Peripheral vision loss, right, Hx of migraines Results * SONOGRAM - COMPLETE (07/23/2024 1:56 PM HAIRSPRING II INSPECTOR) Only the most recent of6 resultswithin the time period is included. Linked Results Indication ======== AMA 39 years, CHTN, Maternal medullary sponge disease History of mid-trimester IUFD, fetus with CHD Normal echocardiogram 05/15 History ====== OB History ? 2. Para 0 ? [id number] Lab Tests Test ? Date ? Result NIPT ? Low risk Maternal Assessment Physical Exam ??Height 168 cm, 5 ft 6 in. Initial weight 73 kg, 160 lb. Initial BMI 25.82 kg/m? Method ====== Transabdominal ultrasound ========= Vázquez . Number of fetuses: 1 Dating ====== ? Date ?Details ? Gest. age ? FEDE Stated FEDE ? 35 w + 1 d ?08/26/2024 Assigned dating based on stated FEDE, selected on 05/28/2024 ?35 w + 1 d ?08/26/2024 General Evaluation Cardiac activity present. FHR 149 bpm. Presentation: cephalic Placenta: Placental site: anterior Amniotic Fluid Assessment ==== Amount of AF: normal MVP 4.8 cm. ALICIA 11.6 cm. Q1 4.8 cm, Q2 3.8 cm, Q3 3.0 cm, Q4 0.0 cm Biophysical Profile 2: breathing movements 2: Gross body movements 2: tone 2: Amniotic fluid volume NST: reactive 04/17 Biophysical profile score Non Stress Test NST interpretation: reactive. Baseline FHR 140 bpm. Baseline variability: moderate. Accelerations: present Biometry BPD ?85.0 ?mm ?34w 2d ??27% ? Hadlock HC ? 315.6 ?? mm ?35w 3d ??23% ? Hadlock AC ? 299.7 ?? mm ?34w 0d ??23% ? Hadlock Femur ?72.2 ?mm ?37w 0d ??86% ? Hadlock Humerus ?65.2 ?mm ?37w 6d ??>99% ?Juli HC / AC ?1.05 Weight Calculation: EFW ?2,563 ?? g ? 43% ? Hadlock EFW (lb,oz) ?5 lb 10 oz EFW by ? Hadlock ([id number]-PD-[id number]-FL) appropriate Growth Overview Exam date ?GA ?BPD (mm) ?HC (mm) AC (mm) FL (mm) HL (mm) EFW (g) 05/28/2024 ? 27w 1d ??67.9 ?45% ? 252.3 ?? 30% ? 220.4 ?? 23% ? 53.9 ?76% ? 50.6 ?96% ? 1062 ?46% 06/25/2024 ? 31w 1d ??79.8 ?67% ? 301 ? 76% ? 262.7 ?? 25% ? 62 ?64% ? 58.3 ?98% ? 1754 ?46% 07/23/2024 ? 35w 1d ??85 ?27% ? 315.6 ?? 23% ? 299.7 ?? 23% ? 72.2 ?86% ? 65.2 ?>99% ?2563 ?43% Impression ========= Single, live, intrauterine at 35w 1d growth & amniotic fluid volume are normal Biophysical profile: 04/17 Follow-up ======== To L&D for evaluation of persistent headache Increase testing to 2x-weekly Coding ====== Procedures ? 38663: [place] ? [address]: Biophysical Profile W NST [place] PACS Anatomical Region Laterality Modality Other 07/23/2024 1:56 PM HAIRSPRING II INSPECTOR R Derrick Perkins MD [facility] ORDERABLES * ECHO COMPLETE CG (05/15/2024 11:56 AM HAIRSPRING II INSPECTOR) MV E pk sade 33.84 cm/s SSM CV F UJI PACS MV A pk sade 60.79 cm/s SSM CV F UJI PACS Anatomical Region Laterality Modality Ultrasound 05/15/2024 11:1 8 AM HAIRSPRING II INSPECTOR Narrative 05/15/2024 5:23 PM HAIRSPRING II INSPECTOR Name: ? Miguelina ?? Emily Patient ??Exam Info Gender: ? Female Accession #: ? [id number] Patient Status: ? O/P : ? 1985 Admit Date: ? 05/15/2024 Exam Date/Time: ? 05/15/2024 11:18 AM Site: ? [facility] Current Location: ? CARE EStaffOrdering Provider: ? Vero Mcdanieltroeelza Civil Project Engineer: ? Alyx Millan [facility] Study Info Procedure: ? ECHO COMPLETE CG Indications: ?Z82.79 - Family history of congenital heart disease Maternal Gestational Status GA by EDC: ? 25 wks , 2 days Count: ? 1 EDC: ? 08/26/2024 Type: ? Vázquez Procedure Details ??* Number of fetuses is 1. Age: ? 39 yrs Summary ??* The echocardiogram was within normal limits. ??* Small atrial and ventricular septal defects and persistent ductus arteriosus cannot be excluded as findings. Anatomic Relationships ??Left sided cardiac apex (levocardia). There is normal visceral-cardiac situs, and normal segmental cardiac anatomical relationship. Systemic Veins ??There is normal systemic venous return. Pulmonary Veins ??The visualized pulmonary veins drain normally to the left atrium. Right Atrium ??The right atrial size is normal. Left Atrium ??The left atrial size is normal. Atrial Septum ??Patent foramen ovale with open foramen flap. Color flow is right to left. Right Ventricle ??The right ventricular cavity size is normal. The right ventricular wall thickness is normal. The right ventricular systolic function is normal. RV Outflow Tract ??The right ventricular outflow tract is normal. Left Ventricle ??The left ventricular cavity size is normal. The left ventricular wall thickness is normal. The left ventricular systolic function is normal. Ventricular Septum ??There is no ventricular septal defect with no shunting. LV Outflow Tract ??The left ventricular outflow tract is normal. Tricuspid Valve ??The tricuspid valve is structurally normal. The tricuspid inflow pattern is normal. Tricuspid velocity is within the normal range. There is no tricuspid regurgitation. Mitral Valve ??The mitral valve is structurally normal. The mitral inflow pattern is normal. Mitral velocity is within the normal range. There is no mitral regurgitation. Aorta ?? aortic arch visualized and is without obstruction by 2D, color flow and Doppler. Pulmonary Arteries ??The main pulmonary artery is normal, with confluent branch pulmonary arteries. Ductus Arteriosus ??The antegrade flow velocity and pattern in the ductal arch is normal. A normal ductus arteriosus is appreciated. Doppler ??Flow in the ductus venosus is normal. The umbilical vein flow pattern is normal. The umbilical artery flow pattern is normal. Hydrops Assessment ??No pericardial effusion. No ascites present. No pleural effusion(s). Rhythm ??The rhythm is normal. There is 1:1 AV conduction. Pulmonary Valve ??The pulmonic valve is normal-sized. The transpulmonic velocity is within normal range. There is no pulmonic regurgitation. Aortic Valve ??The aortic valve is normal-sized. The transaortic velocity is within normal range. There is no aortic regurgitation. Doppler Measurements (Fetus A) Atrioventricular Valves Name ? Value ?Normal ??Z-Score Percentile Atrioventricular Valves Doppler TV E Peak Velocity ? 0.4 m/s ? TV A Peak Velocity ? 0.5 m/s ? MV E Peak Velocity ? 0.3 m/s ? MV A Peak Velocity ? 0.6 m/s (Fetus A) Semilunar Valves Name ? Value ?Normal ??Z-Score Percentile Semilunar Valves Doppler PV Peak Velocity. ?0.3 m/s ? AV Peak Velocity () ? 0.5 m/s (Fetus A) Heart Rate Name ? Value ?Normal ??Z-Score Percentile Heart Rate HR ? 147 bpm Report Signatures Finalized by Marsha Cano ?? on 05/15/2024 05:23 PM Procedure Note Marsha Cano MD - 05/15/2024 Name: Miguelina Diaz Patient Exam Info Gender: Female Patient Status: O/P : 1985 Admit Date: 05/15/2024 Exam Date/Time: 05/15/2024 11:18 AM Site: [facility] Current Location: CARE EStaffOrdering Provider: Vero Owens Civil Project Engineer: Alyx TOLENTINO Study Info Procedure: ECHO COMPLETE CG Indications: Z82.79 - Family history of congenital heart disease Maternal Gestational Status GA by EDC: 25 wks , 2 days Count: 1 EDC: 08/26/2024 Type: Vázquez Procedure Details * Number of fetuses is 1. Age: 39 yrs Summary * The echocardiogram was within normal limits. * Small atrial and ventricular septal defects and persistent ductus arteriosus cannot be excluded as findings. Anatomic Relationships Left sided cardiac apex (levocardia). There is normal visceral-cardiac situs, and normal segmental cardiac anatomical relationship. Systemic Veins There is normal systemic venous return. Pulmonary Veins The visualized pulmonary veins drain normally to the left atrium. Right Atrium The right atrial size is normal. Left Atrium The left atrial size is normal. Atrial Septum Patent foramen ovale with open foramen flap. Color flow is right toleft. Right Ventricle The right ventricular cavity size is normal. The right ventricularwall thickness is normal. The right ventricular systolic function is normal. RV Outflow Tract The right ventricular outflow tract is normal. Left Ventricle The left ventricular cavity size is normal. The left ventricular wall thickness is normal. The left ventricular systolic function is normal. Ventricular Septum There is no ventricular septal defect with no shunting. LV Outflow Tract The left ventricular outflow tract is normal. Tricuspid Valve The tricuspid valve is structurally normal. The tricuspid inflow patternis normal. Tricuspid velocity is within the normal range. There is notricuspid regurgitation. Mitral Valve The mitral valve is structurally normal. The mitral inflow pattern is normal. Mitral velocity is within the normal range. There is no mitral regurgitation. Aorta aortic arch visualized and is without obstruction by 2D, colorflow and Doppler. Pulmonary Arteries The main pulmonary artery is normal, with confluent branch pulmonary arteries. Ductus Arteriosus The antegrade flow velocity and pattern in the ductal arch is normal.A normal ductus arteriosus is appreciated. Doppler Flow in the ductus venosus is normal. The umbilical vein flow patternis normal. The umbilical artery flow pattern is normal. Hydrops Assessment No pericardial effusion. No ascites present. No pleural effusion(s). Rhythm The rhythm is normal. There is 1:1 AV conduction. Pulmonary Valve The pulmonic valve is normal-sized. The transpulmonic velocity iswithin normal range. There is no pulmonic regurgitation. Aortic Valve The aortic valve is normal-sized. The transaortic velocity is withinnormal range. There is no aortic regurgitation. Doppler Measurements (Fetus A) Atrioventricular Valves Name Value Normal Z-ScorePercentile Atrioventricular Valves Doppler TV E Peak Velocity 0.4 m/s TV A Peak Velocity 0.5 m/s MV E Peak Velocity 0.3 m/s MV A Peak Velocity 0.6 m/s (Fetus A) Semilunar Valves Name Value Normal Z-ScorePercentile Semilunar Valves Doppler PV Peak Velocity. 0.3 m/s AV Peak Velocity () 0.5 m/s (Fetus A) Heart Rate Name Value Normal Z-ScorePercentile Heart Rate HR 147 bpm Report Signatures Finalized by Marsha Cano MD on 05/15/2024 05:23 PM Vero Owens APRN-LORELEI ECHO YOVANAID
--- OUTSIDE RECORDS SUMMARY | 2024-08-08 14:40 | XMS_ITS | Data Portability ---
Author Organization [facility] [place] Address [address] [place] [address] [place] [address] Assessment No assessment recorded. Plan of Treatment Reminders Order Date Submit Date Provider Last Modified By Organization Details Last Modified Time Details Appointments BLOOD PRESSURE CHECK 2024 01:30P M Lesly Jimenez CNM Not available Not available Not available Lab unlisted lab - CMP/CBC/u christine acid 2024 025 [facility] (Lab), [address], [place], [address], 07/30/2024 05:16:25 Referral None recorded. Procedures None recorded. Surgeries None recorded. Imaging non-stres s test 2024 025 [email or web address] [place], [address], [place], [address], 07/30/2024 04:01:22 US, obstetric , biophysic al profile + non-stres s test 2024 025 [email or web address] [place], [address], [place], [address], 07/29/2024 20:36:37 Medication Orders metoclopr amide 10 mg tablet 2024 025 [id number], [address], [place], [place], [id number], 08/08/2024 14:34:35 Patient TargetsNo targets recorded. Patient InstructionsNo instructions recorded. Reason for Referral None Reported. Results Created Date Observation Date Name Description Value Unit Range Abnormal Flag Note LastModifiedBy Organization Detail LastModifiedTime 07/07/20 24 07/07/2024 CBC W/DIF F WBC 10.1 10'3/ uL 3.5-10 .5 Not Available [facility] (Lab) [address], [place], [address], 07/11/2024 08:51:19 07/07/20 24 07/07/2024 CBC W/DIF F RBC 4.10 10'6/ uL (based on docume nted legal sex) 3.80-5 .20 Not Available [facility] (Lab) [address], [place], [address], 07/11/2024 08:51:19 07/07/20 24 07/07/2024 CBC W/DIF F HGB 12.6 g/dL (based on docume nted legal sex) 11.6-1 5.4 Not Available [facility] (Lab) [address] [place], [address], 07/11/2024 08:51:19 07/07/20 24 07/07/2024 CBC W/DIF F HCT 38.4 % (based on docume nted legal sex) 34.0-4 5.0 Not Available [facility] (Lab) [address] [place], [address], 07/11/2024 08:51:19 07/07/20 24 07/07/2024 CBC W/DIF F MCV 93.2 fL 80.0-9 9.0 Not Available [facility] (Lab) [address] [place], [address], 07/11/2024 08:51:19 07/07/20 24 07/07/2024 CBC W/DIF F MCH 30.6 pg 27.0-3 4.0 Not Available [facility] (Lab) [address] [place], [address], 07/11/2024 08:51:19 07/07/20 24 07/07/2024 CBC W/DIF F MCHC 32.8 g/dL 32.0-3 5.5 Not Available [facility] (Lab) [address], [place], [address], 07/11/2024 08:51:19 07/07/20 24 07/07/2024 CBC W/DIF F RDW 13.4 % 11.0-1 5.0 Not Available [facility] (Lab) [address], [place], [address], 07/11/2024 08:51:19 07/07/20 24 07/07/2024 CBC W/DIF F plt 134 10'3/ uL 150-40 0 low Not Available [facility] (Lab) [address], [place], [address], 07/11/2024 08:51:19 07/07/20 24 07/07/2024 CBC W/DIF F MPV 12.5 fL 8.8-12 .1 high Not Available [facility] (Lab) [address], [place], [address], 07/11/2024 08:51:19 07/07/20 24 07/07/2024 CBC W/DIF F NRBC's 0.0 % 0.0 Not Available [facility] (Lab) [address], [place], [address], 07/11/2024 08:51:19 07/07/20 24 07/07/2024 CBC W/DIF F absolute NRBCs 0.0 10'3/ uL no refere nce range establ ished Not Available [facility] (Lab) [address], [place], [address], 07/11/2024 08:51:19 07/07/20 24 07/07/2024 CBC W/DIF F neutrophils 72.7 % 34.0-7 3.0 Not Available [facility] (Lab) [address], [place], [address], 07/11/2024 08:51:19 07/07/20 24 07/07/2024 CBC W/DIF F lymphocytes 16.0 % 15.0-5 0.0 Not Available [facility] (Lab) [address], [place], [address], 07/11/2024 08:51:19 07/07/20 24 07/07/2024 CBC W/DIF F monocytes 8.4 % 1.0-15 .0 Not Available [facility] (Lab) [address], [place], [address], 07/11/2024 08:51:19 07/07/20 24 07/07/2024 CBC W/DIF F eosinophils 0.4 % 0.0-8. 0 Not Available [facility] (Lab) [address] [place], [address], 07/11/2024 08:51:19 07/07/20 24 07/07/2024 CBC W/DIF F basophils 0.4 % 0.0-2. 0 Not Available [facility] (Lab) [address] [place], [address], 07/11/2024 08:51:19 07/07/20 24 07/07/2024 CBC W/DIF F immature granulocytes 2.1 % no define d refere nce range Not Available [facility] (Lab) [address] [place], [address], 07/11/2024 08:51:19 07/07/20 24 07/07/2024 CBC W/DIF F absolute neutrophils 7.3 10'3/ uL 1.5-8. 0 Not Available [facility] (Lab) [address] [place], [address], 07/11/2024 08:51:19 07/07/20 24 07/07/2024 CBC W/DIF F absolute lymphocytes 1.6 10'3/ uL 1.0-4. 0 Not Available [facility] (Lab) [address], [place], [address], 07/11/2024 08:51:19 07/07/20 24 07/07/2024 CBC W/DIF F absolute monocytes 0.9 10'3/ uL 0.2-1. 0 Not Available [facility] (Lab) [address], [place], [address], 07/11/2024 08:51:19 07/07/20 24 07/07/2024 CBC W/DIF F absolute eosinophils 0.0 10'3/ uL 0.0-0. 6 Not Available [facility] (Lab) [address], [place], [address], 07/11/2024 08:51:19 07/07/20 24 07/07/2024 CBC W/DIF F absolute basophils 0.0 10'3/ uL 0.0-0. 3 Not Available [facility] (Lab) [address], [place], [address], 07/11/2024 08:51:19 07/07/20 24 07/07/2024 CBC W/DIF F absolute immature granulocytes 0.2 10'3/ uL 0.00-0 .10 high Not Available [facility] (Lab) [address] [place], [address], 07/11/2024 08:51:19 07/07/20 24 07/07/2024 CMP(C OMPRE HENSI VE METAB OLIC PANEL ) sodium 138 mmol/ L 133-14 6 Not Available [facility] (Lab) [address] [place], [address], 07/11/2024 08:51:20 07/07/20 24 07/07/2024 CMP(C OMPRE HENSI VE METAB OLIC PANEL ) potassium 3.9 mmol/ L 3.5-5. 1 Not Available [facility] (Lab) [address] [place], [address], 07/11/2024 08:51:20 07/07/20 24 07/07/2024 CMP(C OMPRE HENSI VE METAB OLIC PANEL ) chloride 105 mmol/ L 98-107 Not Available [facility] (Lab) [address], [place], [address], 07/11/2024 08:51:20 07/07/20 24 07/07/2024 CMP(C OMPRE HENSI VE METAB OLIC PANEL ) carbon dioxide 24 mmol/ L 21-31 Not Available [facility] (Lab) [address], [place], [address], 07/11/2024 08:51:20 07/07/20 24 07/07/2024 CMP(C OMPRE HENSI VE METAB OLIC PANEL ) anion gap 9 mmol/ L 4-13 Not Available [facility] (Lab) [address], [place], [address], 07/11/2024 08:51:20 07/07/20 24 07/07/2024 CMP(C OMPRE HENSI VE METAB OLIC PANEL ) blood urea nitrogen 12 mg/dL 7-25 Not Available [facility] (Lab) [address], [place], [address], 07/11/2024 08:51:20 07/07/20 24 07/07/2024 CMP(C OMPRE HENSI VE METAB OLIC PANEL ) creatinine 0.68 mg/dL 0.60-1 .30 Not Available [facility] (Lab) [address], [place], [address], 07/11/2024 08:51:20 07/07/20 24 07/07/2024 CMP(C OMPRE HENSI VE METAB OLIC PANEL ) egfrcr (CKD-epi 2020) >90 mL/mi n/1.7 3_m2 >=60 Not Available [facility] (Lab) [address], [place], [address], 07/11/2024 08:51:20 07/07/20 24 07/07/2024 CMP(C OMPRE HENSI VE METAB OLIC PANEL ) calcium 9.0 mg/dL 8.3-10 .5 Not Available [facility] (Lab) [address], [place], [address], 07/11/2024 08:51:20 07/07/20 24 07/07/2024 CMP(C OMPRE HENSI VE METAB OLIC PANEL ) glucose 78 mg/dL 70-100 Not Available [facility] (Lab) [address], [place], [address], 07/11/2024 08:51:20 07/07/20 24 07/07/2024 CMP(C OMPRE HENSI VE METAB OLIC PANEL ) protein, total 6.5 g/dL 6.4-8. 3 Not Available [facility] (Lab) [address], [place], [address], 07/11/2024 08:51:20 07/07/20 24 07/07/2024 CMP(C OMPRE HENSI VE METAB OLIC PANEL ) albumin 3.7 g/dL 3.5-5. 0 Not Available [facility] (Lab) [address], [place], [address], 07/11/2024 08:51:20 07/07/20 24 07/07/2024 CMP(C OMPRE HENSI VE METAB OLIC PANEL ) ALT 16 units /L 9-43 Not Available [facility] (Lab) [address], [place], [address], 07/11/2024 08:51:20 07/07/20 24 07/07/2024 CMP(C OMPRE HENSI VE METAB OLIC PANEL ) alkaline phosphatase 115 units /L 34-104 high Not Available [facility] (Lab) [address], [place], [address], 07/11/2024 08:51:20 07/07/20 24 07/07/2024 CMP(C OMPRE HENSI VE METAB OLIC PANEL ) AST 16 units /L 13-39 Not Available [facility] (Lab) [address], [place], [address], 07/11/2024 08:51:20 07/07/20 24 07/07/2024 CMP(C OMPRE HENSI VE METAB OLIC PANEL ) bilirubin, total 0.4 mg/dL 0.2-1. 2 Not Available [facility] (Lab) [address], [place], [address], 07/11/2024 08:51:20 07/07/20 24 07/07/2024 URIC ACID uric acid 5.2 mg/dL 2.3-6. 6 Not Available [facility] (Lab) [address], [place], [address], 07/11/2024 08:51:20 07/07/20 24 07/07/2024 PROTE IN/CR EATIN INE RATIO , URINE creatinine, urine 46.4 mg/dL Not Available [facility] (Lab) [address], [place], [address], 07/11/2024 08:51:20 07/07/20 24 07/07/2024 PROTE IN/CR EATIN INE RATIO , URINE protein, urine 10 mg/dL Not Available [facility] (Lab) [address], [place], [address], 07/11/2024 08:51:20 07/07/20 24 07/07/2024 PROTE IN/CR [...] fican t prote inuri a. Not Available [facility] (Lab) [address], [place], [address], 07/11/2024 08:51:20 07/21/1907/21/2024 CMP/C BC/UR IC ACID WBC 11.8 10'3/ uL 3.5-10 .5 high Not Available [facility] (Lab) [address], [place], [address], 07/22/2024 06:08:43 07/21/1907/21/2024 CMP/C BC/UR IC ACID RBC 4.07 10'6/ uL (based on docume nted legal sex) 3.80-5 .20 Not Available [facility] (Lab) [address], [place], [address], 07/22/2024 06:08:43 07/21/1907/21/2024 CMP/C BC/UR IC ACID HGB 12.3 g/dL (based on docume nted legal sex) 11.6-1 5.4 Not Available [facility] (Lab) [address], [place], [address], 07/22/2024 06:08:43 07/21/1907/21/2024 CMP/C BC/UR IC ACID HCT 36.5 % (based on docume nted legal sex) 34.0-4 5.0 Not Available [facility] (Lab) [address], [place], [address], 07/22/2024 06:08:43 07/21/1907/21/2024 CMP/C BC/UR IC ACID MCV 89.7 fL 80.0-9 9.0 Not Available [facility] (Lab) [address], [place], [address], 07/22/2024 06:08:43 07/21/1907/21/2024 CMP/C BC/UR IC ACID MCH 30.2 pg 27.0-3 4.0 Not Available [facility] (Lab) [address], [place], [address], 07/22/2024 06:08:43 07/21/19 25 07/21/2024 CMP/C BC/UR IC ACID MCHC 33.7 g/dL 32.0-3 5.5 Not Available [facility] (Lab) [address], [place], [address], 07/22/2024 06:08:43 07/21/19 25 07/21/2024 CMP/C BC/UR IC ACID RDW 13.3 % 11.0-1 5.0 Not Available [facility] (Lab) [address], [place], [address], 07/22/2024 06:08:43 07/21/1907/21/2024 CMP/C BC/UR IC ACID plt 138 10'3/ uL 150-40 0 low Not Available [facility] (Lab) [address], [place], [address], 07/22/2024 06:08:43 07/21/19 25 07/21/2024 CMP/C BC/UR IC ACID MPV 12.5 fL 8.8-12 .1 high Not Available [facility] (Lab) [address], [place], [address], 07/22/2024 06:08:43 07/21/19 25 07/21/2024 CMP/C BC/UR IC ACID neutrophils 71.0 % 34.0-7 3.0 Not Available [facility] (Lab) [address], [place], [address], 07/22/2024 06:08:43 07/21/19 25 07/21/2024 CMP/C BC/UR IC ACID lymphocytes 18.3 % 15.0-5 0.0 Not Available [facility] (Lab) [address], [place], [address], 07/22/2024 06:08:43 07/21/19 25 07/21/2024 CMP/C BC/UR IC ACID monocytes 8.3 % 1.0-15 .0 Not Available [facility] (Lab) [address], [place], [address], 07/22/2024 06:08:43 07/21/19 25 07/21/2024 CMP/C BC/UR IC ACID eosinophils 0.4 % 0.0-8. 0 Not Available [facility] (Lab) [address], [place], [address], 07/22/2024 06:08:43 07/21/19 25 07/21/2024 CMP/C BC/UR IC ACID basophils 0.4 % 0.0-2. 0 Not Available [facility] (Lab) [address], [place], [address], 07/22/2024 06:08:43 07/21/1907/21/2024 CMP/C BC/UR IC ACID immature granulocytes 1.6 % no define d refere nce range Immat ure Granu locyt es (IG) repre sents autom ated enume ratio n of Metam yeloc ytes, Myelo cytes and Promy elocy ester when IG is < 5%. Blast s are not inclu ded in IG and repor jason separ ately if prese nt. Not Available [facility] (Lab) [address], [place], [address], 07/22/2024 06:08:43 07/21/19 25 07/21/2024 CMP/C BC/UR IC ACID absolute neutrophils 8.4 10'3/ uL 1.5-8. 0 high Not Available [facility] (Lab) [address], [place], [address], 07/22/2024 06:08:43 07/21/19 25 07/21/2024 CMP/C BC/UR IC ACID absolute lymphocytes 2.2 10'3/ uL 1.0-4. 0 Not Available [facility] (Lab) [address], [place], [address], 07/22/2024 06:08:43 07/21/1907/21/2024 CMP/C BC/UR IC ACID absolute monocytes 1.0 10'3/ uL 0.2-1. 0 Not Available [facility] (Lab) [address], [place], [address], 07/22/2024 06:08:43 07/21/19 25 07/21/2024 CMP/C BC/UR IC ACID absolute eosinophils 0.1 10'3/ uL 0.0-0. 6 Not Available [facility] (Lab) [address], [place], [address], 07/22/2024 06:08:43 07/21/1907/21/2024 CMP/C BC/UR IC ACID absolute basophils 0.1 10'3/ uL 0.0-0. 3 Not Available [facility] (Lab) [address] [place], [address], 07/22/2024 06:08:43 07/21/1907/21/2024 CMP/C BC/UR IC ACID absolute immature granulocytes 0.2 10'3/ uL 0.00-0 .10 high Refer ence range s for nonbi nary/ inter sex or unspe cifie d gende r patie nts have not been estab lishe d. Pleas e refer to the [facility] table for range s estab lishe d for cisge nder patie nts and evalu ate in the clini asif wolfgang xt of the indiv idual patie nt: https ://antonieta serrano book. nm.or g/Gen derX Not Available [facility] (Lab) [address], [place], [address], 07/22/2024 06:08:43 07/21/1907/21/2024 CMP/C BC/UR IC ACID uric acid 5.2 mg/dL 2.3-6. 6 Not Available [facility] (Lab) [address] [place], [address], 07/22/2024 06:08:43 07/21/192025 CMP/C BC/UR IC ACID sodium 137 mmol/ L 133-14 6 Not Available [facility] (Lab) [address], [place], [address], 07/22/2024 06:08:43 07/21/19 25 07/21/2024 CMP/C BC/UR IC ACID potassium 3.9 mmol/ L 3.5-5. 1 Not Available [facility] (Lab) [address], [place], [address], 07/22/2024 06:08:43 07/21/19 25 07/21/2024 CMP/C BC/UR IC ACID chloride 106 mmol/ L 98-107 Not Available [facility] (Lab) [address], [place], [address], 07/22/2024 06:08:43 07/21/19 25 07/21/2024 CMP/C BC/UR IC ACID carbon dioxide 22 mmol/ L 21-31 Not Available [facility] (Lab) [address], [place], [address], 07/22/2024 06:08:43 07/21/19 25 07/21/2024 CMP/C BC/UR IC ACID anion gap 9 mmol/ L 4-13 Not Available [facility] (Lab) [address], [place], [address], 07/22/2024 06:08:43 07/21/19 25 07/21/2024 CMP/C BC/UR IC ACID blood urea nitrogen 15 mg/dL 7-25 Not Available [facility] (Lab) [address] [place], [address], 07/22/2024 06:08:43 07/21/19 25 07/21/2024 CMP/C BC/UR IC ACID creatinine 0.71 mg/dL 0.60-1 .30 Not Available [facility] (Lab) [address] [place], [address], 07/22/2024 06:08:43 07/21/19 25 07/21/2024 CMP/C BC/UR IC ACID egfrcr (CKD-epi 2020) >90 mL/mi n/1.7 3_m2 >=60 Not Available [facility] (Lab) [address], [place], [address], 07/22/2024 06:08:43 07/21/1907/21/2024 CMP/C BC/UR IC ACID calcium 9.4 mg/dL 8.3-10 .5 Not Available [facility] (Lab) [address], [place], [address], 07/22/2024 06:08:43 07/21/19 25 07/21/2024 CMP/C BC/UR IC ACID glucose 85 mg/dL 70-100 Not Available [facility] (Lab) [address], [place], [address], 07/22/2024 06:08:43 07/21/19 25 07/21/2024 CMP/C BC/UR IC ACID protein, total 6.4 g/dL 6.4-8. 3 Not Available [facility] (Lab) [address], [place], [address], 07/22/2024 06:08:43 07/21/19 25 07/21/2024 CMP/C BC/UR IC ACID albumin 3.6 g/dL 3.5-5. 0 Not Available [facility] (Lab) [address], [place], [address], 07/22/2024 06:08:43 07/21/1907/21/2024 CMP/C BC/UR IC ACID ALT 17 units /L 9-43 Not Available [facility] (Lab) [address], [place], [address], 07/22/2024 06:08:43 07/21/19 25 07/21/2024 CMP/C BC/UR IC ACID alkaline phosphatase 145 units /L 34-104 high Not Available [facility] (Lab) [address], [place], [address], 07/22/2024 06:08:43 07/21/19 25 07/21/2024 CMP/C BC/UR IC ACID AST 17 units /L 13-39 Not Available [facility] (Lab) [address] [place], [address], 07/22/2024 06:08:43 07/21/19 25 07/21/2024 CMP/C BC/UR IC ACID bilirubin, total 0.4 mg/dL 0.2-1. 2 Not Available [facility] (Lab) [address] [place], [address], 07/22/2024 06:08:43 07/21/19 25 07/21/2024 PROTE IN/CR EATIN INE RATIO , URINE creatinine, urine 79.9 mg/dL R-No refer ence range estab lishe d for this assay Not Available [facility] (Lab) [address] [place], [address], 07/22/2024 06:08:44 07/21/19 25 07/21/2024 PROTE IN/CR EATIN INE RATIO , URINE protein, urine 14 mg/dL R-No refer ence range estab lishe d for this assay Not Available [facility] (Lab) [address] [place], [address], 07/22/2024 06:08:44 07/21/19 25 07/21/2024 PROTE IN/CR [...] fican t prote inuri a. Not Available [facility] (Lab) [address] [place], [address], 07/22/2024 06:08:44 07/29/19 25 07/29/2024 CMP/C BC/UR IC ACID WBC 12.3 10'3/ uL 3.5-10 .5 high Not Available [facility] (Lab) [address], [place], [address], 07/30/2024 05:16:25 07/29/19 25 07/29/2024 CMP/C BC/UR IC ACID RBC 4.20 10'6/ uL (based on docume nted legal sex) 3.80-5 .20 Not Available [facility] (Lab) [address], [place], [address], 07/30/2024 05:16:25 07/29/19 25 07/29/2024 CMP/C BC/UR IC ACID HGB 12.5 g/dL (based on docume nted legal sex) 11.6-1 5.4 Not Available [facility] (Lab) [address], [place], [address], 07/30/2024 05:16:25 07/29/19 25 07/29/2024 CMP/C BC/UR IC ACID HCT 37.0 % (based on docume nted legal sex) 34.0-4 5.0 Not Available [facility] (Lab) [address] [place], [address], 07/30/2024 05:16:25 07/29/19 25 07/29/2024 CMP/C BC/UR IC ACID MCV 88.1 fL 80.0-9 9.0 Not Available [facility] (Lab) [address] [place], [address], 07/30/2024 05:16:25 07/29/19 25 07/29/2024 CMP/C BC/UR IC ACID MCH 29.8 pg 27.0-3 4.0 Not Available [facility] (Lab) [address] [place], [address], 07/30/2024 05:16:25 07/29/19 25 07/29/2024 CMP/C BC/UR IC ACID MCHC 33.8 g/dL 32.0-3 5.5 Not Available [facility] (Lab) [address], [place], [address], 07/30/2024 05:16:25 07/29/19 25 07/29/2024 CMP/C BC/UR IC ACID RDW 13.4 % 11.0-1 5.0 Not Available [facility] (Lab) [address], [place], [address], 07/30/2024 05:16:25 07/29/19 25 07/29/2024 CMP/C BC/UR IC ACID plt 151 10'3/ uL 150-40 0 Not Available [facility] (Lab) [address], [place], [address], 07/30/2024 05:16:25 07/29/19 25 07/29/2024 CMP/C BC/UR IC ACID MPV 12.9 fL 8.8-12 .1 high Not Available [facility] (Lab) [address], [place], [address], 07/30/2024 05:16:25 07/29/19 25 07/29/2024 CMP/C BC/UR IC ACID neutrophils 69.4 % 34.0-7 3.0 Not Available [facility] (Lab) [address] [place], [address], 07/30/2024 05:16:25 07/29/19 25 07/29/2024 CMP/C BC/UR IC ACID lymphocytes 19.8 % 15.0-5 0.0 Not Available [facility] (Lab) [address], [place], [address], 07/30/2024 05:16:25 07/29/19 25 07/29/2024 CMP/C BC/UR IC ACID monocytes 8.6 % 1.0-15 .0 Not Available [facility] (Lab) [address], [place], [address], 07/30/2024 05:16:25 07/29/19 25 07/29/2024 CMP/C BC/UR IC ACID eosinophils 0.3 % 0.0-8. 0 Not Available [facility] (Lab) [address] [place], [address], 07/30/2024 05:16:25 07/29/19 25 07/29/2024 CMP/C BC/UR IC ACID basophils 0.4 % 0.0-2. 0 Not Available [facility] (Lab) [address], [place], [address], 07/30/2024 05:16:25 07/29/19 25 07/29/2024 CMP/C BC/UR IC ACID immature granulocytes 1.5 % no define d refere nce range Immat ure Granu locyt es (IG) repre sents autom ated enume ratio n of Metam yeloc ytes, Myelo cytes and Promy elocy ester when IG is < 5%. Blast s are not inclu ded in IG and repor jason separ ately if prese nt. Not Available [facility] (Lab) [address], [place], [address], 07/30/2024 05:16:25 07/29/19 25 07/29/2024 CMP/C BC/UR IC ACID absolute neutrophils 8.5 10'3/ uL 1.5-8. 0 high Not Available [facility] (Lab) [address] [place], [address], 07/30/2024 05:16:25 07/29/19 25 07/29/2024 CMP/C BC/UR IC ACID absolute lymphocytes 2.4 10'3/ uL 1.0-4. 0 Not Available [facility] (Lab) [address] [place], [address], 07/30/2024 05:16:25 07/29/19 25 07/29/2024 CMP/C BC/UR IC ACID absolute monocytes 1.1 10'3/ uL 0.2-1. 0 high Not Available [facility] (Lab) [address], [place], [address], 07/30/2024 05:16:25 07/29/19 25 07/29/2024 CMP/C BC/UR IC ACID absolute eosinophils 0.0 10'3/ uL 0.0-0. 6 Not Available [facility] (Lab) [address], [place], [address], 07/30/2024 05:16:25 07/29/19 25 07/29/2024 CMP/C BC/UR IC ACID absolute basophils 0.1 10'3/ uL 0.0-0. 3 Not Available [facility] (Lab) [address], [place], [address], 07/30/2024 05:16:25 07/29/19 25 07/29/2024 CMP/C BC/UR IC ACID absolute immature granulocytes 0.2 10'3/ uL 0.00-0 .10 high Refer ence range s for nonbi nary/ inter sex or unspe cifie d gende r patie nts have not been estab lishe d. Pleas e refer [facility] table for range s estab lishe d for cisge nder patie nts and evalu ate in the clini asif wolfgang xt of the indiv idual patie nt: https :[email or web address] [email or web address] [email or web address].or [email or web address] derX Not Available [facility] (Lab) [address], [place], [address], 07/30/2024 05:16:25 07/29/1907/29/2024 CMP/C BC/UR IC ACID uric acid 5.5 mg/dL 2.3-6. 6 Not Available [facility] (Lab) [address] [place], [address], 07/30/2024 05:16:25 07/29/19 25 07/29/2024 CMP/C BC/UR IC ACID sodium 137 mmol/ L 133-14 6 Not Available [facility] (Lab) [address] [place], [address], 07/30/2024 05:16:25 07/29/19 25 07/29/2024 CMP/C BC/UR IC ACID potassium 4.0 mmol/ L 3.5-5. 1 Not Available [facility] (Lab) [address] [place], [address], 07/30/2024 05:16:25 07/29/19 25 07/29/2024 CMP/C BC/UR IC ACID chloride 105 mmol/ L 98-107 Not Available [facility] (Lab) [address], [place], [address], 07/30/2024 05:16:25 07/29/19 25 07/29/2024 CMP/C BC/UR IC ACID carbon dioxide 22 mmol/ L 21-31 Not Available [facility] (Lab) [address] [place], [address], 07/30/2024 05:16:25 07/29/19 25 07/29/2024 CMP/C BC/UR IC ACID anion gap 10 mmol/ L 4-13 Not Available [facility] (Lab) [address] [place], [address], 07/30/2024 05:16:25 07/29/19 25 07/29/2024 CMP/C BC/UR IC ACID blood urea nitrogen 16 mg/dL 7-25 Not Available [facility] (Lab) [address] [place], [address], 07/30/2024 05:16:25 07/29/19 25 07/29/2024 CMP/C BC/UR IC ACID creatinine 0.67 mg/dL 0.60-1 .30 Not Available [facility] (Lab) [address] [place], [address], 07/30/2024 05:16:25 07/29/19 25 07/29/2024 CMP/C BC/UR IC ACID egfrcr (CKD-epi 2020) >90 mL/mi n/1.7 3_m2 >=60 Not Available [facility] (Lab) [address] [facility], [place], [address], 07/30/2024 05:16:25 07/29/19 25 07/29/2024 CMP/C BC/UR IC ACID calcium 9.6 mg/dL 8.3-10 .5 Not Available [facility] (Lab) [address] [facility], [place], [address], 07/30/2024 05:16:25 07/29/19 25 07/29/2024 CMP/C BC/UR IC ACID glucose 92 mg/dL 70-100 Not Available [facility] (Lab) [address] [facility], [place], [address], 07/30/2024 05:16:25 07/29/19 25 07/29/2024 CMP/C BC/UR IC ACID protein, total 6.4 g/dL 6.4-8. 3 Not Available [facility] (Lab) [address] [facility], [place], [address], 07/30/2024 05:16:25 07/29/19 25 07/29/2024 CMP/C BC/UR IC ACID albumin 3.7 g/dL 3.5-5. 0 Not Available [facility] (Lab) [address] [facility], [place], [address], 07/30/2024 05:16:25 07/29/19 25 07/29/2024 CMP/C BC/UR IC ACID ALT 10 units /L 9-43 Not Available [facility] (Lab) [address] [place], [address], 07/30/2024 05:16:25 07/29/19 25 07/29/2024 CMP/C BC/UR IC ACID alkaline phosphatase 164 units /L 34-104 high Not Available [facility] (Lab) [address] [place], [address], 07/30/2024 05:16:25 07/29/19 25 07/29/2024 CMP/C BC/UR IC ACID AST 13 units /L 13-39 Not Available [facility] (Lab) [address] [place], [address], 07/30/2024 05:16:25 07/29/19 25 07/29/2024 CMP/C BC/UR IC ACID bilirubin, total 0.4 mg/dL 0.2-1. 2 Not Available [facility] (Lab) [address] [place], [address], 07/30/2024 05:16:25 07/29/19 25 07/29/2024 CULTU RE: GROUP B STREP SCREE N, REFLE X SUSCE PTIBI LITY result report SEE RESULT S BELOW Test: Cultu re: Group B Strep , Refle x Susce ptibi lity ([facility]/ [facility]/K H/VWH ) Speci men Sourc e: Vagin a/Rec berto Speci men Type: Vagin al/Re ctal Speci men Date: 2024 1615 Resul t Date: 2024 1357 Resul t Statu s: Final resul t Abnor mal: No Resul ting Lab: [facility] [address] [facility] [address] Tel: CULTU RE ----- ----- ----- --- No Group B strep isola jason at 2 days (jose ctive broth enhan cemen t) Not Available [facility] (Lab) [address] [place], [address], 08/01/2024 15:00:48 06/30/20 24 06/30/2024 non-s tress test No observ ation record ed. [email or web address] [place] [address], [place], [address], 06/30/2024 16:21:35 07/07/20 24 07/07/2024 non-s tress test No observ ation record ed. [place] [address], [place], [address], 07/07/2024 21:17:27 07/10/19 25 07/10/2024 US, obste tric, bioph ysica l profi le No observ ation record ed. [email or web address] [place] [address], [place], [address], 07/10/2024 18:24:47 07/10/19 25 07/10/2024 US, obste tric, bioph ysica l profi le No observ ation record ed. [email or web address] [place] [address], [place], [address], 07/10/2024 21:55:58 07/15/19 25 07/07/2024 non-s tress test No observ ation record ed. [email or web address] [place] [address], [place], [address], 07/15/2024 11:35:49 07/15/19 25 07/15/2024 US, obste tric, bioph ysica l profi le + non-s tress test No observ ation record ed. [email or web address] [place] [address], [place], [address], 07/15/2024 16:35:24 07/15/19 25 07/15/2024 US, obste tric, bioph ysica l profi le + non-s tress test No observ ation record ed. [email or web address] [place] [address], [place], [address], 07/15/2024 21:29:07 07/15/19 25 07/15/2024 non-s tress test No observ ation record ed. [email or web address] [place] [address], [place], [address], 07/15/2024 16:53:50 07/23/19 25 07/23/2024 US, obste tric, follo w-up No observ ation record ed. [email or web address] [facility] [address], [place], [address], 07/25/2024 20:57:14 07/25/19 25 07/23/2024 US, obste tric, follo w-up No observ ation record ed. [email or web address] [facility] [address], [place], [address], 07/29/2024 07:32:34 07/29/19 25 07/29/2024 US, obste tric, bioph ysica l profi le + non-s tress test No observ [facility]ion [email or web address] [address], [place], [address], 07/29/2024 17:42:55 07/29/19 25 07/29/2024 US, obste tric, follo w-up No observ ation record ed. [email or web address] [place] [address], [place], [address], 07/30/2024 09:24:07 07/29/19 25 07/29/2024 non-s tress test No observ ation record ed. [email or web address] [place] [address], [place], [address], 07/29/2024 16:39:39 Result Notes None recorded. Problems Name Problem SNOMED Code Status Onset Date Resolution Date Notes Provider Name and Address Organization Details Recorded Time Pregnanc y 78463097 Completed 202308/08/2024 Chantel Nguyen [facility] [place] [facility] 14:33:58 Kidney disease 40152448 Completed medullar y sponge kidney, seen by DONA NICOLE MD [address], [place], [address], , P.C[facility] 4 12:07:32 Complica jason migraine 474711924 Completed Anthony Perkins MD [address], [place], [address], , P.C. 4 16:25:18 Hyperten sive disorder 14864341 Completed no meds - 38wk delivery , 32wk antentat al testing weekly Britaney Víctor null, [facility] 4 14:45:34 Hyperten sive disorder 12975995 Active no meds - 38wk delivery , 32wk antentat al testing weekly Britaney Víctor null, [facility] 4 14:45:34 Hyperten sive disorder 50046419 Active no meds Britaney Víctor null, [facility] 4 14:45:34 Kidney disease 29897914 Active medullar y sponge kidney, seen by MFBrandi NICOLE MD [address], [place], [address], , P.C. 4 12:07:37 Advanced maternal age 916762889 Completed Britaney Víctor null, [facility] 4 14:42:27 Cardiac arrhythm ia 234303526 Completed 2023 [facility] rec EKG- normal, maternal ECHO, cardiolo gy referral if needed ARUN NICOLE MD [address], [place], [address], , P.C. 4 14:24:21 Breech presenta tion 5766591 Completed Chantel Nugyen [facility], [facility] 5 14:30:51 Problem Notes None recorded. Procedures Surgical History Date Name Laterality Status Provider Name and Address Organization Details Recorded Time 4 Date of Last Pap Smear completed Chantel Nguyen [facility] 02/11/2024 16:12:10 6 extraction of wisdom tooth completed Chantel Nguyen [facility] 02/12/2024 18:23:38 Imaging Results Imaging Date Name Status LastModified by Organiz ation Details LastModified Time 06/30/2024 non-stress test completed [email or web address] [place] [address], [place], [address], 06/30/2024 16:21:35 07/07/2024 non-stress test completed [email or web address] [place] [address], [place], [address], 07/07/2024 21:17:27 07/10/2024 US, obstetric, biophysical profile completed [address], [place], [address], 07/10/2024 18:24:47 07/10/2024 US, obstetric, biophysical profile completed [email or web address] [place] [address], [place], [address], 07/10/2024 21:55:58 07/07/2024 non-stress test completed [email or web address] [place] [address], [place], [address], 07/15/2024 11:35:49 07/15/2024 US, obstetric, biophysical profile + [facility]stress [facility] [address], [place], [address], 07/15/2024 16:35:24 07/15/2024 US, obstetric, biophysical profile + non-stress test completed [email or web address] [place] [address], [place], [address], 07/15/2024 21:29:07 07/15/2024 non-stress test completed [place] [address], [place], [address], 07/15/2024 16:53:50 07/23/2024 US, obstetric, follow-up completed [email or web address] [facility] [address], [place], [address], 07/25/2024 20:57:14 07/23/2024 US, obstetric, follow-up completed [email or web address] [facility] [address], [place], [address], 07/29/2024 07:32:34 07/29/2024 US, obstetric, biophysical profile + non-stress test completed [facility] [address], [place], [address], 07/29/2024 17:42:55 07/29/2024 US, obstetric, follow-up completed [email or web address] [place] [address], [place], [address], 07/30/2024 09:24:07 07/29/2024 non-stress test completed [email or web address] [place] [address] [address], [place], [address], 07/29/2024 16:39:39 Procedure Notes None recorded. Medical Equipment None Reported. Allergies Allergen ID Allergen Name Allergen Category Reaction Reaction Severity Criticality Documentation Date Start Date Code Code System Note Provider Name and Address Organization Details Recorded Time 23424 Hayfever medicatio n Not available Not available Not available 01/29/2024 55930 PETAR Aragon[place], [place] - [facility] 14:29:27 51831 chlorphen iramine / phenylpro panolamin e medicatio n eye swelling moderate Not available 02/11/2024 33477 4 RxNorm Chantel Nguyen [facility] 4 16:04:13 Medications Name Sig Start Date Stop Date Status Note LastModified by Organization Details LastModified Time nifedipine ER 30 mg tablet,exten ded release TAKE 1 TABLET BY MOUTH DAILY ON AN EMPTY STOMACH 05/05 completed Not Available Not Available Not Available metocloprami de 10 mg tablet TAKE 1 TABLET BY MOUTH FOUR TIMES DAILY NEEDED 08/08 completed Not Available Not Available Not Available Tums 08/08 completed Not Available Not Available Not Available Baby Aspirin 08/08 completed Not Available Not Available Not Available + DHA active Not Available Not Available Not Available Vitals Date Recorded Body height Body mass index (BMI) Body weight Systolic blood pressure Diastolic blood pressure Provider Name and Address Organization Details Last Updated DateTime 07/29/2024 167.64 cm 33.4 kg/m2 28537.62 g 150 mm[Hg] 88 mm[Hg] Joya Coburn [facility] 5 16:08:14 Date Recorded Body height Body mass index (BMI) Body weight Systolic blood pressure Diastolic blood pressure Systolic blood pressure Diastolic blood pressure Provider Name and Address Organization Details Last Updated DateTime 5 167.64 cm 31 kg/m2 40628.7 4 g 167 mm[Hg] 104 mm[Hg] 160 mm[Hg] 100 mm[Hg] Chantel Nguyen [facility] 5 14:30:33 Social History Question Answer Notes LastModified by Organizat ion Details LastModified Time Tobacco Smoking Status Never Smoker Bita Aragonse alcaraz [facility] 01/29/2024 14:38:33 What Is Your Level [...] Or The Highest Degree You Have Received? 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 [id number] [email or web address] Information not available 02/11/2024 Do You Use [...] 01/29/2024 What is your exercise level? Heavy [email or web address] Information not available 02/11/2024 Mental Status None recorded. Family History Relationship Description Onset Age of this Age Resolved Age Notes LastModified by Organization Details LastModified Time Maternal Grandfather Heart disease [email or web address] Not available 02/10 16:04:14 Paternal Grandfather Heart disease [email or web address] Not available 02/10 16:04:14 Father Heart disease [email or web address] Not available 02/10 16:04:14 Medical History Condition Response Allergies (Food, seasonal, environmental ) N Other Y Blood Transfusion N Drug/Latex Allergies/Reactions N Breast Cancer N Dermatologic Disorders N [...] N Heart Disease N Pre-Eclampsia N Hypertension Y Osteoporosis N Thrombophilias N Gynecological History Statement/Question [...] Definite N Obstetrics History GPAL:G 2 P 1 0 1 1 Type Value Full Term 1 Spontaneous 1 Living 1 Total 2 Past Encounters Encounter ID Performer Location Encounter Start Date Encounter Closed Date Diagnosis/Indication Diagnosis SNOMED-CT Code Diagnosis ICD10 Code Diagnosis Note [id number] Jennifer [facility] [address],[place] [address] 01/29/2024 13:43:37 01/29/2024 14:37:09 [id number] ARUN NICOLE MD [place] [address],[place] [address] 01/29/2024 13:45:30 01/29/2024 15:26:42 test positive 839217648 Z32.01 1. Exam today within normal limits.2. [...] at 10 weeks, orders given today. [id number] [facility] [address],[place] [address] 02/11/2024 14:54:40 02/11/2024 17:41:48 screening 236559496 Z36.82 Z3A.12 [id number] Chantel Nguyen [place] [address],[place] [address] 02/11/2024 14:55:29 02/11/2024 17:41:26 Routine care 027914134 Z34.90 O26.891 Low back p ain in 2925406484 106 O26.899 Gestation period, 11 weeks 98255144 Z3A.11 [id number] Gloria Moreno [place] [address],[place] [address] 02/19/2024 15:26:30 02/19/2024 16:03:40 Spotting per vagina in 053652589 O26.851 Z3A.13 [id number] ARUN NICOLE MD [place] [address],[place] [address] 02/19/2024 15:45:20 02/19/2024 16:44:29 Urinary symptoms 241929909 R39.9 - patient reports some cramping back pain, no fevers, chills, or dysuria- UA clean in office today- patient to continue PO hydration, no further workup needed at this time Bleeding f rom female genital tract during 3391204774 8009842 O46.91 - vaginal spotting with wiping, no recent trauma or intercours e- US reassuring today, normal FHR and movement, placenta appears normal with no subchorion ic hemorrhage - no restrictio ns, monitor for further bleeding [id number] ARUN NICOLE MD [place] [address],[place] [address] 03/12/2024 11:10:37 03/12/2024 12:11:21 Hypertensive disorder 58992993 I10 Kidney disease 77911316 N08 Gestation period, 16 weeks 37072683 Z3A.16 [id number] ARUN NICOLE MD [place] [address],[place] [address] 04/07/2024 15:05:05 04/08/2024 08:45:59 Chronic hypertension complicating AND/OR reason for care during 03817357 O16.9 Breech presentation 6096 002 O32.1XX9 Kidney disease 03118531 N08 Advanced m aternal age 712605459 O09.529 Cardiac arrhythmia 92425 7007 I49.9 Gestation period, 19 weeks 91623192 Z3A.19 [id number] ARUN NICOLE MD [place] [address],[place] [address] 05/05/2024 14:02:28 05/09/2024 11:36:24 Chronic hypertension complicating AND/OR reason for care during 36294440 O16.9 Hypertensive disorder 38 334110 I10 Kidney disease 47844889 N08 Transverse lie 18580912 O32.2XX9 Advanced m aternal age 021485468 O09.529 Gestation period, 23 weeks 64555987 Z3A.23 [id number] ARUN NICOLE MD [place] [address],[place] [address] 06/03/2024 09:29:54 06/03/2024 10:35:54 Hypertensive disorder 67799685 I10 Kidney disease 96118593 N08 Chronic hy pertension complicating AND/OR reason for care during 74551152 O16.9 Advanced m aternal age 976513891 O09.529 Gestation period, 28 weeks 48907023 Z3A.28 [id number] ARUN NICOLE MD [place] [address],[place] [address] 06/16/2024 14:38:34 06/16/2024 15:49:45 Advanced maternal age 500534183 O09.529 Chronic hy pertension complicating AND/OR reason for care during 97718983 O16.9 Gestation period, 29 weeks 73198344 Z3A.29 [id number] Joyamario Coburn [place] [address],[place] [address] 06/30/2024 14:26:58 06/30/2024 16:33:56 Chronic hypertension complicating AND/OR reason for care during 63859928 O16.9 [id number] ARUN NICOLE MD [place] [address],[place] [address] 06/30/2024 14:27:26 06/30/2024 15:59:05 Advanced maternal age 798085100 O09.529 Kidney disease 68885437 N08 Breech presentation 6096 002 O32.1XX9 Gestation period, 31 weeks 33242650 Z3A.31 Chronic hy pertension complicating AND/OR reason for care during 49509288 O16.9 [id number] Chantel Nguyen [place] [address],[place] [address] 07/07/2024 13:54:09 07/08/2024 06:10:25 -induced hypertension 71482640 O13.9 [id number] Anthony Perkins MD [place] [address],[place] [address] 07/07/2024 13:54:37 07/07/2024 16:00:27 Routine care 881846146 Z34.90 O26.891 [id number] [facility] [address],[place] [address] 07/10/2024 16:54:17 07/10/2024 17:41:16 Advanced maternal age 382272622 O09.523 O16.3 O09.293 O99.893 Z3A.33 [id number] Joya Coburn [place] [address],[place] [address] 07/15/2024 15:23:11 07/15/2024 16:56:57 Chronic hypertension complicating AND/OR reason for care during 93942379 O16.9 [id number] [facility] [address],[place] [address] 07/15/2024 15:23:25 07/15/2024 16:26:06 Advanced maternal age 510756737 O09.523 O16.3 O09.293 O99.893 Z3A.34 [id number] ARUN NICOLE MD [place] [address],[place] [address] 07/15/2024 16:01:40 07/23/2024 01:08:03 Chronic hypertension complicating AND/OR reason for care during 69240834 O16.9 - intermitte nt headaches, otherwise asymptomat ic- BP mild range- labs wnl 1 week ago, repeat today- return precaution s reviewed Advanced m aternal age 058055895 O09.529 Kidney disease 32274478 N08 Gestation period, 35 weeks 31009676 Z3A.35 [id number] ARUN NICOLE MD [place] [address],[place] [address] 07/21/2024 16:14:55 07/23/2024 06:39:16 Chronic hypertension complicating AND/OR reason for care during 70664749 O16.9 - intermitte nt headaches, otherwise asymptomat ic- BP mild range- labs wnl 1 week ago, repeat today- return precaution s reviewed Advanced m aternal age 339111429 O09.529 Kidney disease 36177083 N08 Gestation period, 34 weeks 96024668 Z3A.34 [id number] Gloria Moreno [place] [address],[place] [address] 07/29/2024 14:48:28 07/29/2024 15:34:11 Advanced maternal age 476729720 O09.523 O16.3 O09.293 O99.893 Z3A.36 [id number] Joya Coburn [place] [address],[place] [address] 07/29/2024 14:48:41 07/29/2024 16:43:29 Chronic hypertension complicating AND/OR reason for care during 91118530 O16.9 - intermitte nt headaches, otherwise asymptomat ic- BP mild range- labs wnl 1 week ago, repeat today- return precaution s reviewed [id number] ARUN NICOLE MD [place] [address],[place] [address] 07/29/2024 14:49:03 07/29/2024 16:46:28 Headache 73604608 R51.9 Chronic hy pertension complicating AND/OR reason for care during 34673514 O16.9 - intermitte nt headaches, otherwise asymptomat ic- BP mild range- labs wnl 1 week ago, repeat today- return precaution s reviewed Mild pre-eclampsia 35094 007 O14.03 Advanced m aternal age 832624600 O09.529 Kidney disease 70808676 N08 Gestation period, 36 weeks 09572191 Z3A.36 [id number] ARUN NICOLE MD [place] [address],[place] [address] 08/05/2024 08:54:43 08/05/2024 12:40:36 Health Concerns Section Related Observation LastModified by Organization Detai ls LastModified Time None Recorded Concern Status LastModified by Organization Details LastModified Time None Recorded Advance Directives Directive None Recorded Payers Encounter Date Sequence Insurance Name Policy Number Policy Dawn Covered Member ID Dawn Member ID Guarantor Name 07/29/2024 1 [place] [id number] Miguelina Diaz [id number] Miguelina Diaz 07/29/2024 1 [place] [id number] Miguelina Diaz [id number] Miguelina Lomaxa 07/29/2024 1 [place] [id number] Miguelina Lomaxa [id number] Miguelina Diaz 08/05/2024 1 [place] [id number] Miguelina Lomaxa [id number] Miguelina Diaz OBGyn Episode Ob Episode Information Episode Created Date Number of Fetuses Patient Bloodtype Patient rh Status Prepregnancy Weight lbs Domestic Partner Domestic Partner Phone Father Name Industrial Engineer Status 02/11/20 24 1 A Positive 156 Bulmaro CLOSED Fetus Data First Name Last Name Admitted to NICU Weight (g) Sex Living Outcome Pediatric Complications Fetus ID Race Codes Race Delivery Type 2636.50 35 M true Full Term [id number] Vaginal Delivery Problems Problem Notes [facility] 05/15 echo, 05/28 9 am 07/23/24 US, 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 echo scheduled for 05/15/24, neurology consult orders for migraines, follow up eye exam needed. Problem Name Start Date End Date Resolution Snomed Code Not e Hypertensive disorder 56688594 no meds - 38wk delivery, 32wk antentatal testing weekly Complicated migraine 466798964 Breech presentation 5032632 Kidney disease 51094796 medul hilda sponge kidney, seen by [facility] Cardiac arrhythmia 04/03/2024 [id number] [facility] rec EKG- normal, maternal ECHO, cardiology referral if needed Advanced maternal age 536421777 Bhanu Calculation Initial Bhanu Date Initial Exam Date Initial Exam Provider Initial Ultrasound Date Last Menstrual Period Date Ultra Sound Weeks Gestation 08/26/2024 01/29/2024 [email or web address] 01/29/2024 11/25/2023 10 Eighteen To Twenty Week [...] Weight in lbs Pre/Post Dialysis Refused Weight 160.229754085940 BP Diastolic BP Location Tested BP Systolic [...] Weight in lbs Pre/Post Dialysis Refused Weight 163.299246796187 BP Diastolic BP Location Tested BP Systolic BP Type 91 148 Fetus Heart Rate Present Fetus Movement Comments problem visit, see note. Flowsheet Date 03/12/2024 Alex Score Blood Edema Fundus Height Fundus Units Glucose Ketones Leukocytes Nitrite Labor Signs Protein Cervic Dilation Cervic Effacement Cervic Station Type Weight in lbs Pre/Post Dialysis Refused Weight 168.497706544663 BP Diastolic BP Location Tested BP Systolic BP Type 69 151 Fetus Heart Rate Present A 155 Fetus Movement A No Comments Doing well, no further bleed ing. No cramping. No movement yet. Saw [facility], increased ASA to 2 per day. Will perform anatomy US at [facility]. Discussed diagnosis of cHTN, plan for 32 [...] Type Weight in lbs Pre/Post Dialysis Refused 172.356982947621 BP Diastolic BP Location Tested BP Systolic [...] Type Weight in lbs Pre/Post Dialysis Refused 187.116162163280 BP Diastolic BP Location Tested BP Systolic [...] Type Weight in lbs Pre/Post Dialysis Refused 193.84511027474 BP Diastolic BP Location Tested BP Systolic [...] Weight in lbs Pre/Post Dialysis Refused Weight 198.852285568952 BP Diastolic BP Location Tested BP Systolic BP Type 84 L arm 133 sitting Fetus Heart Rate Present A 155 Fetus Movement A Yes Comments Patient c/o of Kamrar Cervantes , and still feeling side affects [...] Weight in lbs Pre/Post Dialysis Refused Weight 201.754652188046 BP Diastolic BP Location Tested BP Systolic [...] Weight in lbs Pre/Post Dialysis Refused Weight 204.415713647964 BP Diastolic BP Location Tested BP Systolic BP Type 104 161 96 150 Fetus Heart Rate Present Fetus Movement Comments Flowsheet Date 07/07/2024 Alex Score Blood Edema Fundus Height Fundus Units Glucose Ketones Leukocytes Nitrite Labor Signs Protein Cervic Dilation Cervic Effacement Cervic Station trace Type Weight in lbs Pre/Post Dialysis Refused 204.841236136768 BP Diastolic BP Location Tested BP Systolic [...] Weight in lbs Pre/Post Dialysis Refused Weight 259.312277086645 BP Diastolic BP Location Tested BP Systolic BP Type 101 L arm 143 sitting Fetus Heart Rate Present A 145 Fetus Movement A Yes Comments Patient c/o of headches and slight nausea for the past few days. Also reports RUQ pain, unclear if related to movement. Recommend evaluation at [place] due to escalating BPs, will try tylenol for headache. Discussed induction at 37-38 weeks pending further evaluation. BPP 04/17. RTC 1 week. Flowsheet Date 07/21/2024 Alex Score Blood Edema Fundus Height Fundus Units Glucose Ketones Leukocytes Nitrite Labor Signs Protein Cervic Dilation Cervic Effacement Cervic Station neg none Type Weight in lbs Pre/Post Dialysis Refused Weight 207.636510250565 BP Diastolic BP Location Tested BP Systolic [...] Weight in lbs Pre/Post Dialysis Refused Weight 207.739365162082 BP Diastolic BP Location Tested BP Systolic BP Type 88 L arm 150 sitting Fetus Heart Rate Present Fetus Movement A Yes Comments Patient c/o of slight nausea for the past 2 weeks, along with contractions. Swelling in hands and feet. Flowsheet Date 08/05/2024 Alex Score Blood Edema Fundus Height Fundus Units Glucose Ketones Leukocytes Nitrite Labor Signs Protein Cervic Dilation Cervic Effacement Cervic Station Type Weight in lbs Pre/Post Dialysis Refused BP Diastolic BP Location Tested BP Systolic BP Type Fetus Heart Rate Present Fetus Movement Comments Flowsheet Date 08/08/2024 Alex Score Blood Edema Fundus Height Fundus Units Glucose Ketones Leukocytes Nitrite Labor Signs Protein Cervic Dilation Cervic Effacement Cervic Station Type Weight in lbs Pre/Post Dialysis Refused Weight 192.689635366166 BP Diastolic BP Location Tested BP Systolic BP Type 104 167 100 160 Fetus Heart Rate Present Fetus Movement Comments Menstrual History Last Menstrual Date Menses Monthly On Bcp Conception Prior Menses Frequency Hcg Plus Date Menarche Onset Age 0511/25/2023 false Delivery Information Delivery Date Delivery Type Labor Anesthesia Weeks Gestation Incision Type Labor Labor Length Hrs Delivered By Post Complications Tubal Sterilization Discharge Date Comments 5 36.3 true arun kasilof Discharge Information Feeding Method Contraceptive Method Maternal HG B and HCT Levels Ob Episode Information Episode Created Date Number of Fetuses Patient Bloodtype Patient rh Status Prepregnancy Weight lbs Domestic Partner Domestic Partner Phone Father Name Industrial Engineer Status 01/29/20 24 1 CLOSED Fetus Data First Name Last Name Admitted to NICU Weight (g) Sex Living Outcome Pediatric Complications Fetus ID Race Codes Race Delivery Type , Spontane ous [id number] Bhanu Calculation Initial Bhanu Date Initial Exam [...]
--- OUTSIDE RECORDS SUMMARY | 2024-08-08 14:40 | XMS_ITS | Continuity of Care Document ---
Author Organization [facility] Address [address] [place] [address] Phone Care Team Providers Care Chip Machine Operator Name Role Phone Unavailable Unavailable Unavailable Unavailable Unavailable Unavailable Allergies, Adverse Reactions, Alerts Substance Reaction Status Criticality No Known allergies Medications Medication Instructions Dosage Effective Dates (start - stop) Status Comments CIPRO (unknown strength) Not Available - Active Advance Directives Directive Yes / No Effective Date File Name No Information Encounters Encounter Description Practice Location Reason(s) For Visit Diagnoses Date Provider Providers Copied on Encounter [facility], [address] [place] [address], [facility], tel:[phone] [place] No Information 2 No Information [facility], [address] [place] [address], [facility], tel:[phone] [place] Refractive Error UnspecifiedRefra ctive Error Unspecified 2 No Information Family History Family Member Type Diagnosis Age At Onset Grandmother (m) Problem (finding) glaucoma Payers Payer name Insurance type Covered libertarian ID Authoriza tion(s) No Information Social History Type Description Quantity Date Captured Comments Sex Female Smoking Status No Information Chief Complaint And Reason For Visit No Information Reason For Referral Reason For Referral No Information History Of Present Illness Encounter Date Complaint History Of Prese nt Illness No Information Functional Status Date Functional Assessmen t No Information Instructions Date Instruction Additional Infor annetta - Return in 1 year w harris Bush OD for Complete Exam/Contacts. Related to Refractive Error Unspecified Myopia - Refractive error. Glasses and Contacts prescribed. Discussed importance of proper wear and care of contact lenses. Symptoms of contact lens problems discussed and patient told to RTC if noticed. Glasses may be used at patient's convenience. Related to Refractive Error Unspecified Assessments Type Assessment Date No Information Patient Care Teams Name Effective Dates (start - stop) Status Members No Information
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
[2024-08-08 14:43] VITALS: BP 148/96; PULSE 72
[2024-08-08 14:57] LABS: Basophils Absolute Auto 0.1 K/mm3 (0.0-0.1); Basophils Percent Auto 0.9 % (0.2-1.2); Eosinophils Absolute Auto 0.1 K/mm3 (0-0.3); Eosinophils Percent Auto 1.1 % (0-4.4); Hemoglobin 13.5 g/dL (12.0-15.0); Immature Granulocyte Percent A 1.1 % (0-0.5); Lymphocytes Absolute Auto 2.53 K/mm3 (0.9-3.2); Lymphocytes Percent Auto 28.9 % (18.3-44.2); Mean Corpuscular HGB Conc 33.8 g/dl (32-36); Mean Corpuscular Volume 91.7 fl (80-100); Mean Platelet Volume 10.6 fl (7.4-10.4); Monocytes Absolute Auto 0.7 K/mm3 (0.1-0.6); Monocytes Percent Auto 7.6 % (2.6-8.5); Neutrophils Absolute Auto 5.3 K/mm3 (1.3-6.7); Neutrophils Percent Auto 60.4 % (45.5-73.1); Platelet Count Result 227 k/mm3 (150-375); Red Blood Count 4.36 M/mm3 (4.2-5.4); Red Cell Distribution Width 12.7 % (11.5-14.5); White Blood Count 8.8 K/mm3 (4.5-10.0)
[2024-08-08 15:00] VITALS: BP 145/90; PULSE 70
[2024-08-08 15:07] LABS: Alanine Aminotransferase 19 U/L (6-35); Alkaline Phosphatase 111 U/L (38-126); Anion Gap 12 mmol/L (4-12); Aspartate Amino Transferase 22 U/L (14-36); Bilirubin,Total 0.5 mg/dL (0.2-1.3); Blood Urea Nitrogen 24 mg/dL (7-17); Calcium 9.3 mg/dL (8.4-10.2); Carbon Dioxide 26 mmol/L (22-30); Chloride 103 mmol/L (98-107); Estimated Glomerular Filt Rate > 60; Glucose 88 mg/dL (65-110); Potassium 4.1 mmol/L (3.4-5.0); Sodium 141 mmol/L (137-145); Uric Acid 9.6 mg/dL (2.5-7.5)
[2024-08-08 15:15] VITALS: BP 151/114; PULSE 85
[2024-08-08 15:31] VITALS: BP 139/98; PULSE 71
[2024-08-08 15:45] VITALS: BP 138/100; PULSE 71
--- NOTE | 2024-08-08 16:02 | PC.NURSE ---
Gildardo Jimenez CNM notified of VS and lab results. Discharge patient with Labetalol 200 BID and follow up with Dr. Parrish next week. Patient in agreement with plan of care.
== END 2024-08-08 16:00 | disposition home or self-care (01) ==
LOC: ANHOBOP 14:34 → ANHLDR 14:40
PROVIDERS: Advanced Practice Midwife; Visit Provider Obstetrics & Gynecology
DX: O16.5 Unspecified maternal hypertension, complicating the puerperium (principal)
CPT/HCPCS: 36415; 80053; 84550; 85025; 99199